=== PATIENT | female | born 1950 | race Caucasian/White ===

== ENCOUNTER 2024-12-23 12:35 | Inpatient (IN) | payer MEDICARE, SELFPAY ==
[2024-12-23] VITALS (12 sets, daily range): BP systolic 109–141; BP diastolic 44–63; PULSE 93–111; RESP 16–25; TEMP 36.7–37.3; O2SAT 95–100
--- NOTE | ~2024-12-23 | XR_ITS ---
MODIFIED ESOPHAGRAM HISTORY: Aspiration pneumonia TECHNIQUE: Modified barium esophagram was performed on 12/26/2024. I administered fluoroscopy and perf ormed the exam with speech pathologist. Patient was seated for lateral fluoroscopic imaging for michelle stion of thin liquids, pudding, solids and quantified amounts, followed by thin liquids in uncontroll ed amounts. This was recorded on tape. A single fluoroscopic spot image was also recorded. The DAP fo r this procedure was 1.828 Gycm2. The amount of fluoroscopy time used during this procedure was 1.9 m inutes. FINDINGS: Oral stage: Adequate function. Pharyngeal stage: Adequate function. There is transient flash laryngeal penetration which immediately cleared. No aspiration.. Cervical/esophageal stage: Adequate function. IMPRESSION: Patient tolerated regular consistency oral feedings in the upright position. Please sarina elate with speech pathologist findings and specific feeding recommendations. Reviewed, dictated and finalized at location A. IMPRESSION: Patient tolerated regular consistency oral feedings in the upright position. Please correlate with speech pathologist findings and specific feedi ng recommendations.
--- NOTE | ~2024-12-23 | CT_ITS ---
CTA chest PE protocol Ordering provider: Polo Burrell MD History: 74 years Female with . Shortness of breath recent hospitalization eval pe . Comparison: None. Technique: CT angiogram chest was performed following timed intravenous injection of contrast. Thin s lice axial images and reformatted coronal images were obtained. Three dimensional reformatted images of the chest were also obtained using a Ch[employer] workstation. . Automated exposure control and iterati ve reconstruction technique were employed. The dose-length product was 244.38 mGy-cm. 100 mL Omnipaqu e 350 was given IV. Findings: PULMONARY ARTERIES: No pulmonary embolus. VISUALIZED THORACIC INLET: Normal. MEDIASTINUM: Aorta/coronary arteries: Mild atheromatous disease. Heart/other: The heart is not enlarged. Lymph nodes: Paratracheal lymph nodes seen with the largest measures 1.3 cm. LUNGS: Left pleural effusion with adjacent atelectasis versus pneumonia. Right lower lobe pneumonia is noted . Follow-up advised.. No pulmonary nodules or masses. . No pneumothorax. VISUALIZED UPPER ABDOMEN: Sliding hiatus hernia. Cholelithiasis. Otherwise, the visualized upper abdo men is normal. MUSCULOSKELETAL: Soft tissues: The superficial soft tissues are normal. Bones: Age appropriate degenerative changes of the spine. IMPRESSION: 1. No pulmonary embolism. 2. Left pleural effusion with adjacent atelectasis versus pneumonia. 3. Right lower lobe pneumonia posteriorly. 4. Large sliding hiatus hernia. 5. Cholelithiasis. Reviewed, dictated and finalized at location A.
--- NOTE | ~2024-12-23 | XR_ITS ---
CHEST RADIOGRAPH CLINICAL HISTORY: Increasing oxygen demands . COMPARISON: 12/23/2024. Reference is also made to a CTA examination of the chest performed on the same day (12/23/2024) TECHNIQUE: Single portable view of the chest. FINDINGS Redemonstration of a moderate hiatal hernia. The remainder of the cardiomediastinal silhouette is otherwise unremarkable. Increased left-sided pleural effusion when compared with previous days examination. The right basilar consolidation is not visualized on the current examination. Interval development of patchy opacification of the right upper lobe, when compared with previous day s examination for which pulmonary edema is suspected. The remainder the lungs are clear. IMPRESSION: Asymmetric right upper lobe pulmonary edema with increased left-sided pleural effusion when compared with previous days examination. Reviewed, dictated and finalized at location A. IMPRESSION: Asymmetric right upper lobe pulmonary edema with increased left-sided pleural e ffusion when compared with previous days examination.
--- NOTE | ~2024-12-23 | XR_ITS ---
EXAMINATION: XR chest 1V portable DATE: 12/23/2024 13:41 INDICATION: Shortness of breath TECHNIQUE: frontal view of the chest was obtained. COMPARISON: None FINDINGS: Opacity at the medial left lower lung zone. There is blunting at the left costophrenic angle consiste nt with small left pleural effusion. Mild opacities at infrahilar region of the medial right lower javier ng zone. No pneumothorax or right-sided pleural effusion. Heart size is normal. IMPRESSION: 1. Small left pleural effusion with consolidation at the medial left lower lung zone which could repr esent atelectasis or pneumonia. 2. Mild right infrahilar opacities which could certainly represent atelectasis or pneumonia. Reviewed, dictated and finalized at location A. IMPRESSION: 1. Small left pleural effusion with consolidation at the medial left lower lung zone which could represent atelectasis or pneumonia. 2. Mild right infrahilar opacities which could certainly represent atelectasis or pneumonia.
--- NOTE | 2024-12-23 12:43 | ECG_ITS ---
Test Date: 2024-12-23 12:56:34 Measurements Intervals [place] Rate: 109 P: 72 WA: 166 QRS: -61 QRSD: 135 T: 100 QT: 349 QTc: 470 Interpretive Statements SINUS TACHYCARDIA LEFT BUNDLE BRANCH BLOCK BASELINE ARTIFACT- I, II, III, AVR, AVL, AVF, V1 ABNORMAL ECG No previous ECG available for comparison Electronically Signed On 12-23-2024 14:11:11 CDT by Pablo Flores D.O.
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
[2024-12-23 13:06] LABS: Basophils Absolute Auto 0.1 K/mm3 (0.0-0.1); Basophils Percent Auto 0.3 % (0.2-1.2); Eosinophils Percent Auto 0.1 % (0-4.4); Hematocrit 34.4 % (37.0-47.0); Hemoglobin 10.5 g/dL (12.0-15.0); Immature Granulocyte Absolute 0.21 K/mm3 (0.00-0.031); Immature Granulocyte Percent A 0.9 % (0-0.5); Lymphocytes Percent Auto 8.4 % (18.3-44.2); Mean Corpuscular HGB Conc 30.5 g/dl (32-36); Mean Corpuscular Hemoglobin 29.5 pg (26-34); Mean Corpuscular Volume 96.6 fl (80-100); Mean Platelet Volume 8.1 fl (7.4-10.4); Monocytes Absolute Auto 1.6 K/mm3 (0.1-0.6); Monocytes Percent Auto 6.9 % (2.6-8.5); Neutrophils Percent Auto 83.4 % (45.5-73.1); Platelet Count Result 379 k/mm3 (150-375); Red Blood Count 3.56 M/mm3 (4.2-5.4); Red Cell Distribution Width 15.2 % (11.5-14.5); White Blood Count 23.9 K/mm3 (4.5-10.0)
[2024-12-23 13:15] LABS: Lactic Acid Reflex 1.3 mmol/L (0.7-2.0)
[2024-12-23 13:16] LABS: INR 1.1; Prothrombin Time 14.3 Seconds (11.1-14.7)
[2024-12-23 13:16] LABS: Alveolar/Arterial O2 Gradient 72.6 mmHg; Base Excess ABG -2.4 mEq/l (+/-2.0); Fractional Inspired Oxygen 24 %; HCO3 ABG 21.5 mEq/l (22.0-26.0); Oxygen Content ABG 13.7 %vol (16.0-22.0); Oxygen Saturation ABG 90.7 % (95.0-100.0); Oxyhemoglobin 89.1 % THb (90.0-100.0); PCO2 ABG 34.3 mmHg (35.0-45.0); PO2 ABG 57.7 mmHg (80.0-100.0); Total Hemoglobin 10.9 g/dL (12.0-18.0); pH ABG 7.416 (7.350-7.450)
[2024-12-23 13:17] LABS: Partial Thromboplastin Time 29.7 Seconds (22.3-36.8)
[2024-12-23 13:18] LABS: Device NASAL CANNULA; Modified Allen's Test Pass; Site Drawn LEFT RADIAL
[2024-12-23 13:43] LABS: Influenza A QL RT-PCR Negative (Negative); Influenza B QL RT-PCR Negative (Negative); RSV RNA, RT-PCR Negative (Negative); SARS-CoV-2 RNA PCR Negative (Negative)
[2024-12-23 13:45] LABS: Procalcitonin 0.2 ng/mL
[2024-12-23 14:00] LABS: Alanine Aminotransferase 15 U/L (6-35); Albumin Level 3.3 g/dL (3.5-5.1); Alkaline Phosphatase 124 U/L (38-126); Anion Gap 10 mmol/L (4-12); Aspartate Amino Transferase 29 U/L (14-36); Bilirubin,Total 0.4 mg/dL (0.2-1.3); Blood Urea Nitrogen 14 mg/dL (7-17); Calcium 8.2 mg/dL (8.4-10.2); Carbon Dioxide 19 mmol/L (22-30); Chloride 105 mmol/L (98-107); Estimated CRCL calculation 42 ml/min; Estimated Glomerular Filt Rate > 60; Glucose 88 mg/dL (65-110); Magnesium 1.1 mg/dL (1.6-2.3); Sodium 134 mmol/L (137-145); Total Protein 8.4 g/dL (6.3-8.2)
[2024-12-23 14:03] LABS: NT Pro B Type Natriuretic Pept 1670 pg/mL (19.9-100); Troponin I 0.025 ng/mL (0.000-0.034)
--- OUTSIDE RECORDS SUMMARY | 2024-12-23 14:30 | XMS_ITS | Referral Summary ---
Author Organization [facility] Address [address] [place] [address] Phone Care Team Providers Care Asbestos Worker Name Role Phone Brent Russell MD Unavailable [phone] Evelyn Lopes DO Unavailable [phone] Evelyn Lopes DO Primary Care Provider [phone] Allergies Active Allergy Reactions Criticality Noted Date Comments Loracarbef Naproxen Anaphylaxis High Nsaids (Non-Steroidal Anti-Inflammatory Drug) Anaphylaxis,Other (See comments) High 05/22/2012 Sulfa (Sulfonamide Antibiotics) Hives High 04/03/2018 Medications atorvastatin (LIPITOR) 40 mg tablet Take 40 mg by mouth daily 1 Active carvediloL (COREG) 6.25 mg tablet Take 6.25 mg by mouth 2 (two) times a day 1 Active irbesartan (AVAPRO) 300 mg tablet Take 1 tablet by mouth daily 9 Active triamterene-hydr oCHLOROthiazide (MAXZIDE,DYAZIDE ) 75-50 mg per tablet Take 1 tablet by mouth daily 1 Active zolpidem (AMBIEN) 5 mg tablet Take 5 mg by mouth as needed 1 Active cholecalciferol (VITAMIN D-3) 5,000 unit capsule Take 5,000 Units by mouth daily Active cetirizine (ZyrTEC) 10 mg tablet Take 10 mg by mouth daily Active esomeprazole DR (NexIUM) 20 mg capsule Take 20 mg by mouth daily 2 Active multivit odagdogx-fswq-HB -calcium (THERA-M) 9 mg iron-400 mcg tablet Take 1 tablet by mouth daily Active senna-docusate (PERICOLACE) 8.6-50 mg Take 1 tablet by mouth 2 (two) times a day as needed 1 Active ondansetron (ZOFRAN) 4 mg tablet Take 4-8 mg by mouth every 8 (eight) hours as needed 1 Active naloxone (NARCAN) 4 mg/actuation spray,non-aeroso l Administer 1 spray into affected nostril(s) as needed 1 Active EPINEPHrine 0.3 mg/0.3 mL auto-injection syringe Inject 0.3 mg into the muscle as instructed as needed 1 Active acetaminophen (TYLENOL) 500 mg tablet Take 1,000 mg by mouth 3 (three) times a day as needed Active apixaban (ELIQUIS) 2.5 mg tabletIndication s:VTE Prophylaxis Take 1 tablet (2.5 mg total) by mouth 2 (two) times a day 60 tablet 2 Active gabapentin (NEURONTIN) 100 mg capsule Take 1 capsule (100 mg total) by mouth 3 (three) times a day as needed (pain control) 60 capsule 2 Active oxyCODONE (ROXICODONE) 5 mg immediate release tabletIndication s:Pain Take 1 tablet (5 mg total) by mouth every 6 (six) hours as needed for pain 15 tablet 2 Active hydrOXYzine (ATARAX) 25 mg tabletIndication s:anxiety Take 25 mg by mouth every 6 (six) hours as needed for anxiety. Indications: anxious Active Active Problems Problem Noted Date Diagnosed Date Wound infection after surgery 01/26/2022 Mixed hyperlipidemia 04/28/2021 Assessment & Plan (04/28/2021 5:26 PM CDT): Chronic stable continue atorvastatin 40 mg daily, check fasting labs Insomnia 04/28/2021 Assessment & Plan (04/28/2021 5:30 PM CDT): Chronic stable, currently taking Ambien 5 mg prescribed by former provider. Cautioned should not be taking Ambien along with her trazodone and definitely not with the tramadol due to increased respiratory depression. Patient tells me she has always taken it that way. Wakes up in the middle the night has difficulty going back to bed. Discussed weaning off Ambien and increasing it trazodone Medicare annual wellness visit, subsequent 04/28 Assessment & Plan (04/28/2021 5:25 PM CDT): Recommend maintain regular cardiovascular program as tolerated. Anemia 11/18/2014 Overview (10/13/2016): Anemia Hypertension, essential 11/18/2014 Overview (10/13/2016): Hypertension Assessment & Plan (04/28/2021 5:30 PM CDT): Chronic stable continue Avapro 300 mg, triamterene hydrochlorothiazide 75-50 daily and low-salt diet Asthma 11/18/2014 Overview (10/13/2016): Asthma Anxiety 11/18/2014 Overview (10/13/2016): Anxiety Assessment & Plan (04/28/2021 5:29 PM CDT): Worsening since returning back to his early from [place]. Recommend counselor, resources printed and handed to patient Arthritis 11/18/2014 Overview (10/13/2016): Arthritis Assessment & Plan (04/28/2021 5:29 PM CDT): Chronic stable she is taking tramadol 50 mg every 6 hours prescribed by previous provider. She was upset when the new provider whom she saw once before coming to this office decreased her tramadol from 5 tablets per day to 4 tablets per day. She is taking the medication for Right knee arthritis, right shoulder pain, hx left knee replaced. Depression 11/18/2014 Overview (10/13/2016): Depression Migraine 11/18/2014 Overview (10/13/2016): Migraines Immunizations Immunization Administration Dates Next Due Influenza, Quadrivalent, Hig h Dose, Preservative Free, Intrr 03/18/2021 Pfizer SARS-CoV-2 Monovalent Vaccination (12+ Yrs) PURPLE 10/20/2020,09/03/2020 Pneumococcal Conjugate PCV 13 11/18/2014 Pneumococcal Polysaccharide PPV23 11/06/2013 Tdap 11/18/2014 Social History Tobacco Use Types Packs/Day Years Used Date Smoking Tobacco: Never Smokeless Tobacco: Never Alcohol Use Standard Drinks/Week Comments No 0 (1 standard drink = 0.6 oz pur e alcohol) occasional AUDIT-C Answer Date Recorded Q1: How often do you have a drink containing alc ohol? 2-3 times a week 01/18/2022 Q2: How many drinks containi ng alcohol do you have on a typical day when you are drinking? 1 or 2 01/18/2022 Q3: How often do you have si x or more drinks on one occasion? 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 Gender Identity Not on file Sexual Orientation Not on file Last Filed Vital Signs Vital Sign Reading Time Taken Comments Blood Pressure 152/80 03/03/2022 2:33 PM CDT Pulse 69 03/03/2022 2:33 PM CDT Temperature 35.7 C (96.3 F) 03/03/2022 2:33 PM CDT Respiratory Rate 18 03/03/2022 2:33 PM CDT Oxygen Saturation 93% 03/03/2022 2:33 PM CDT Inhaled Oxygen Concentration - - Weight 72.6 kg (160 lb) 01/26/2022 4:02 PM CDT Height 152.4 cm (5') 01/26/2022 4:02 PM CDT Body Mass Index 31.25 01/26/2022 4:02 PM CDT Plan of Treatment Not on file Medical Devices Implanted Type Area Software Manager Device Identifier Shelf Expiration Date Model / Serial / Lot [employer] [place] R High Viscosity Cement 40gm Bone Green [id number] - [id number] Implanted:Qty: 1 on 01/18/2022 by Bernt Russell MD at [facility] Right: Knee [employer] 12/07/2023 [id number] / / [id number] [employer] Persona Cemented Posterior Stabilize Knee Right 5 Standard [id number] - [id number] Implanted:Qty: 1 on 01/18/2022 by Brent Russell MD at [facility] Right: Knee [employer] [id number] 01/04/2031 [id number] / / [id number] [employer] [id number] Persona Cemented Stem Knee Right 5d C Baseplate Tibial Tivanium - [id number] Implanted:Qty: 1 on 01/18/2022 by Brent Russell MD at [facility] Right: Knee [employer] [id number] 02/28/2031 [id number] / / [id number] [employer] [id number] Persona 13mm Posterior Stabilized Knee Right 3-5 C-D Insert - [id number] Implanted:Qty: 1 on 01/18/2022 by Brent Russell MD at [facility] Right: Knee [employer] [id number] 05/10/2029 [id number] / / [id number] Synthes 3.5mm 6mm 34mm 2.5mm Self Tap Small Hexagonal Socket Low Profile 204.834 - [id number] Implanted:Qty: 1 on 01/18/2022 by Brent Russell MD at [facility] Right: Knee Synthes I 204.834 / / Synthes 3.5mm 6mm 28mm 2.5mm Self Tap Small Hexagonal Socket Low Profile 204.828 - [id number] Implanted:Qty: 1 on 01/18/2022 by Brent Russell MD at [facility] Right: Knee Synthes I 204.828 / / Synthes Lcp Combi [id number] 4 Hole Head 4 Hole Shaft Right Angle T 241.141 - [id number] Implanted:Qty: 1 on 01/18/2022 by Brent Russell MD at [facility] Right: Knee Synthes I 241.141 / / Insurance [facility] [place] [phone] [facility] H[facility] REF Advance Directives For more information, please contact: [phone] * Full Code (Latest Code Status on File) Date Activated Date Inactivated Comments 01/26/2022 9:01 PM 01/30/2022 6:39 PM * Full Code Date Activated Date Inactivated Comments 01/18/2022 3:00 PM 01/22/2022 9:37 PM Care Teams Asbestos Worker Relationship Specialty Start Date End Date Evelyn Lopes DO [address] [place] [address] PCP - General 01/30/22 Brent Russell MD Surgeon Orthopedic Surgery 01/18/22 Evelyn Lopes DO [address] [facility] [address] [place] [address] Consulting Physician Family Medicine 01/30/22
--- OUTSIDE RECORDS SUMMARY | 2024-12-23 14:30 | XMS_ITS | Clinical Summary ---
Author Organization [facility] Address [address] [place] [address] Phone Care Team Providers Care Driller'S Assistant Name Role Phone Brent Russell MD Unavailable [phone] Evelyn Lopes DO Unavailable [phone] Evelyn Lopes DO Primary Care Provider [phone] Allergies Active Allergy Reactions Criticality Noted Date [...] mg by mouth daily 2 Active multivit lzdfclul-oemz-OV -calcium (THERA-M) 9 mg iron-400 mcg tablet [...] since returning back to his early from [place]. Recommend counselor, resources printed and handed to [...] 11/18/2014 Pneumococcal Polysaccharide PPV23 11/06/2013 Tdap 11/18/2014 Surgical History Surgery Date Site/Laterality Comments JOINT REPLACEMENT Left knee Medical History Medical History Date Comments Anxiety disorder Anxiety Depression Depression Hypertension Hypertension High cholesterol OA (osteoarthritis) Family History Medical History Relation Name Comments Alcohol abuse Father Alcoholism; Stroke Father Stroke; Colon cancer Mother Cancer, colon; Emphysema Mother Emphysema; Other Mother Brain Neuropath y; ADD / ADHD Other Family history of ADD/ADHD; Hypertension Other Family history of Hypertension; Other Other Family history of Pulmonary hypertension; Relation Name Status Comments Father Mother Other Social History Tobacco Use Types Packs/Day Years [...] on file 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 Gender Identity Not on file Sexual Orientation Not on file Obstetrics History Last Filed Vital Signs Vital Sign Reading [...] 01/26/2022 4:02 PM CDT Plan of Treatment Health Maintenance Due Date Last Done Comments Hepatitis C Screening 1950 Osteoporosis Screening-Bone Density Scan 1950 Hepatitis B Screening 02/15/1966 Zoster Vaccine (3 of 3) 01/20/2022 11/25/2021, 06/03 Depression Screening 04/28/2022 04/28/2021 Well Visit 65+ 04/28/2022 04/28/2021 Fall Risk Assessment 01/30/2023 01/30/2022, 04/28/20 21 Covid-19 Vaccine (2023-2 5 season) 2024 11/25/2021, 04/28/2021, 10/20/2020, Additional history exists DTaP/Tdap/Td Vaccine (2 - Td or Tdap) 11/18/2024 11/18/2014 Influenza Vaccine (Season Ended) 2025 03/18/2021, 03/07/2020, 04/09/2019, Additional history exists Pneumococcal vaccine 65+ Completed 020, 05/13/2018, 11/18/2014, Additional history exists Medical Devices Implanted Type Area Wine Bottle Inspector Device Identifier Shelf Expiration Date Model / Serial / Lot [employer] [place] High Viscosity Cement 40gm Bone Green [id number] - [id number] Implanted:Qty: 1 on 01/18/2022 by Brent Russell MD at [facility] Right: Knee [employer] 12/07/2023 [id number] / / [id number] [employer] Persona Cemented Posterior Stabilize Knee Right 5 Standard [id number] - [id number] Implanted:Qty: 1 on 01/18/2022 by Brent Russell MD at [facility] Right: Knee [employer] [id number] 01/04/2031 [id number] / / [id number] [employer] [id number] Persona Cemented Stem Knee Right 5d C Baseplate Tibial Tivanium - [id number] Implanted:Qty: 1 on 01/18/2022 by Brent Russell MD at [facility] Right: Knee [employer] [id number] 02/28/2031 [id number] / / [id number] [employer] [id number] Persona 13mm Posterior Stabilized Knee Right 3-5 C-D Insert - [id number] Implanted:Qty: 1 on 01/18/2022 by Brent Russell MD at [facility] Right: Knee [employer] [id number] 05/10/2029 [id number] / / [id number] Synthes 3.5mm 6mm 34mm 2.5mm Self Tap Small Hexagonal Socket Low Profile 204.834 - [id number] Implanted:Qty: 1 on 01/18/2022 by Brent Russell MD at [facility] Right: Knee Synthes I 204.834 / / Synthes 3.5mm 6mm 28mm 2.5mm Self Tap Small Hexagonal Socket Low Profile 204.828 - [id number] Implanted:Qty: 1 on 01/18/2022 by Brent Russell MD at [facility] Right: Knee Synthes I 204.828 / / Synthes Lcp Combi [id number] 4 Hole Head 4 Hole Shaft Right Angle T 241.141 - [id number] Implanted:Qty: 1 on 01/18/2022 by Brent Russell MD at [facility] Right: Knee Synthes I 241.141 / / Insurance [facility] [place] [phone] [facility] Advance Directives For more information, please contact: [phone] * Full Code (Latest Code Status on File) Date Activated Date Inactivated Comments 01/26/2022 9:01 PM 01/30/2022 6:39 PM * Full Code Date Activated Date Inactivated Comments 01/18/2022 3:00 PM 01/22/2022 9:37 PM Care Teams Driller'S Assistant Relationship Specialty Start Date End Date Evelyn Lopes DO [address] [facility] [address] [place] [address] PCP - General 01/30/22 Brent Russell MD Surgeon Orthopedic Surgery 01/18/22 Evelyn Lopes DO [address] [facility] [address] [place] [address] Consulting Physician Family Medicine 01/30/22
--- OUTSIDE RECORDS SUMMARY | 2024-12-23 14:31 | XMS_ITS | Clinical Summary ---
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 : 1950 Requested By: TRENT MOLINA Order Number: [id number] Reading : [place] Measurements Intervals [place] Rate: 88 P: 73 [place]: 169 QRS: 16 QRSD: 84 T: 14 QT: 367 QTc: 444 Interpretive Statements Sinus rhythm Abnormal T, consider ischemia, anterior leads Electronically Signed On 11-28-2024 8:46:42 CDT by [place] Procedure Note [place] MD - 11/28/2024 [facility] [address] [facility], [place] [address] Test Date: 2024-11-27 Pat Name: LYNETTE COLEPORT Department: 60 Room: [facility] Gender: Female 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 Anatomical Region Laterality Modality Chest Computed Radiogr aphy 11/27/2024 6:56 AM CDT Impressions 11/27/2024 2:59 PM CDT IMPRESSION: Mild edema. DICTATION LOCATION: 4 Narrative 11/27/2024 2:59 PM CDT EXAMINATION: XR CHEST PA OR AP 1 VW DATE: 11/27/2024 6:38 AM HISTORY: Pulmonary Edema FINDINGS: Comparison is made to a radiograph from 03/28/2025. The right-sided catheter is been removed. A left PICC and nasoenteric tube are similar to prior. There is mild edema. There is no pleural effusion or pneumothorax. Cardiomediastinal silhouette is stable. Procedure Note Sukhdeep Garcia MD - 11/27/2024 EXAMINATION: XR CHEST PA OR AP 1 VW DATE: 11/27/2024 6:38 AM HISTORY: Pulmonary Edema FINDINGS: Comparison is made to a radiograph from 03/28/2025. The right-sided catheter is been removed. A left PICC and nasoenteric tube are similar to prior. There is mild edema. There is no pleural effusion or pneumothorax. Cardiomediastinal silhouette is stable. IMPRESSION: Mild edema. DICTATION LOCATION: 4 Alban WATSON DIAGNOSTIC IMAGING ORDERABLES Fi nal Result * (ABNORMAL) UREA NITROGEN/CREATININE RATIO, URINE (11/25/2024 4:41 PM CDT) UREA NITROGEN, URINE 780 mg/dL 11/25/2024 5:17 PM CDT [facility] Comment:Reference range not established CREATININE, URINE 24.7(L) 29.0 - 226.0 mg/dL 11/25/2024 5:17 PM CDT [facility] Comment:Reference Range vari es with fluid intake and diet. UREA/CREAT RATIO, UR 31.6 Reference Range not established mg/mg Creatinine 11/25/2024 5:17 PM CDT [facility] Urine URINE SPECIMEN OBTAINED BY CLEAN CATCH PROCEDURE / Unknown Collection / Unknown 11/25/2024 4:41 PM CDT 11/25/2024 4:51 PM CDT Ileana Vu MD URINE ORDERABLES Final Re sult [facility]# [id number] 5 [facility] [address] [place] [address] * XR COMPENSATION AGENT FEES IMAGES (11/25/2024) Only the most recent of2 resultswithin the time period is included. Anatomical Region Laterality Modality Computed Radiogr aphy 11/25/2024 Yue Pepe MD DIAGNOSTIC IMAGING ORDERABL ES Final Result * (ABNORMAL) BLOOD GAS ARTERIAL (11/23/2024 6:28 AM CDT) Only the most recent of28 resultswithin the time period is included. PH ARTERIAL 7.44 7.35 - 7.45 11/23/2024 6:43 AM T [facility] PCO2 ARTERIAL 41 35 - 48 mm Hg 11/23/2024 6:43 AM T [facility] [employer] [facility] PO2 ARTERIAL 93 83 - 108 mm Hg 11/23/2024 6:43 AM T [facility] HCO3 ARTERIAL 28(H) 22 - 26 mmol/L 11/23/2024 6:43 AM T [facility] BASE EXCESS ABG 3.6(H) -2.0 - 3.0 mmol/L 11/23/2024 6:43 AM T [facility] O2 SAT EST ARTERIAL 98 94 - 98 % 11/23/2024 6:43 AM T [facility] P/F RATIO ARTERIAL 4,650 11/23/2024 6:43 AM T [facility] OXYGEN MODE Nasal Cannula 11/23/2024 6:43 AM [facility] [employer] [facility] FIO2 2.0(L) 21.0 - 100.0 % 11/23/2024 6:43 AM T [facility] [employer] [facility] Blood, arterial Arterial / Unknown 2024 6:28 AM CDT 11/23/2024 6:34 AM CDT Yue Pepe MD ABG ORDERABLES Final Resul t [facility]# [id number] 5 [facility] [address] [place] [address] * (ABNORMAL) BASIC METABOLIC PANEL (11/23/2024 6:28 AM CDT) Only the most recent of39 resultswithin the time period is included. SODIUM 134(L) 136 - 145 mmol/L 11/23/2024 7:24 AM [facility] POTASSIUM 4.0 3.5 - 5.0 mmol/L 11/23/2024 7:24 AM [facility] CHLORIDE 99 98 - 107 mmol/L 11/23/2024 7:24 AM [facility] CO2 26 22 - 29 mmol/L 11/23/2024 7:24 AM [facility] CALCIUM 7.9(L) 8.6 - 10.2 mg/dL 11/23/2024 7:24 AM [facility] BUN 49(H) 8 - 23 mg/dL 11/23/2024 7:24 AM [facility] CREATININE 0.95 0.51 - 0.95 mg/dL 11/23/2024 7:24 AM [facility] Comment:The GFR result is no t clinically significant on patients <18 or >70 years of age. GLUCOSE 110(H) 74 - 99 mg/dL 11/23/2024 7:24 AM [facility] GFR >60 mL/min/1.7 3 sq meter 11/23/2024 7:24 AM [facility] Comment:eGFR calculated with 2020 CKD-EPI equation. Vegetarian diet, extremely high or low muscle mass, and may affect results. Cystatin C with Glomerular Filtration Rate is a suitable alternative for these patients. ANION GAP 9 8 - 16 mmol/L 11/23/2024 7:24 AM [facility] Blood Venipuncture / Unknown 11/23/2024 6:28 AM CDT 11/23/2024 6:34 AM CDT Yue Pepe MD CHEMISTRY ORDERABLES Final Result [id number] [address] [place] [address] * (ABNORMAL) TEG-TRAUMA (11/20/2024 7:35 PM CDT) Only the most recent of2 resultswithin the time period is included. Pathologist [facility] CITRATED KAOLIN REACTION TIME (CK-R) 6.0 4.6 - 9.1 min 11/20/2024 8:43 PM CDT [facility] CITRATED RAPID MAXIMUM AMPLITUDE (OPERATING ROOM ORDERLY-MA) 72.0(H) 52.0 - 70.0 mm 11/20/2024 8:43 PM CDT [facility] CITRATE FUNCTIONAL FIBRINOGEN MAXIMUM AMPLITUDE (CF 44.4(H) 15.0 - 32.0 mm 11/20/2024 8:43 PM CDT [facility] LY30(LYSIS) 0.0 0.0 - 3.0 % 11/20/2024 8:43 PM CDT [facility] Blood Venipuncture / Unknown 11/20/2024 7:35 PM CDT 11/20/2024 7:35 PM CDT Narrative [facility] - 11/20/2024 8:43 PM CDT For TEG result interpretation guidance, please review results in TEG Sieve Maker. For [place], refer to [email or web address] Patient [email or web address]. For Stuart Petty or [place], refer to [email or web address]. Sheela WATSON HEMATOLOGY ORDERABLES Shanda l Result [facility]# [id number] [address] [place] [address] * HEPATITIS B SURFACE ANTIGEN (11/20/2024 3:10 PM CDT) [facility] HEPATITIS B SURFACE AG NON-REACT JEFF Non-react jeff 11/20/2024 4:11 PM CDT [facility] Comment:A non-reactive test result does not exclude the possibility of exposure to or infection with hepatitis B. Blood Venipuncture / Unknown 11/20/2024 3:10 PM CDT 11/20/2024 3:20 PM CDT Kate Aleman MD CHEMISTRY ORDERABLES Final Resu lt [facility] [employer] [facility] [id number] [address] [facility] [place] [address] * (ABNORMAL) HEPATIC FUNCTION PANEL (11/20/2024 8:47 AM CDT) TOTAL PROTEIN 7.9 6.7 - 8.6 g/dL 11/20/2024 10:09 AM T [facility] ALBUMIN 2.6(L) 3.5 - 5.2 g/dL 11/20/2024 10:09 AM [facility] BILIRUBIN TOTAL 0.2 0.0 - 1.1 mg/dL 11/20/2024 10:09 AM T [facility]. [facility] BILIRUBIN DIRECT <0.2 <0.4 mg/dL 11/21/19 10:09 AM [facility] ALKALINE PHOSPHATASE 95 35 - 104 U/L 11/20/2024 10:09 AM T [facility]. [facility] AST 20 <33 U/L 11/20/2024 10:09 AM T [facility]. [facility] ALT 19 <34 U/L 11/20/2024 10:09 AM T [facility] Blood Venipuncture / Unknown 11/20/2024 8:47 AM CDT 11/20/2024 9:12 AM CDT Narrative [facility] - 11/20/2024 10:09 AM CDT Samples containing indocyanine green cause interferences on Total and/or Direct Bilirubin and must not be measured. Alban WATSON CHEMISTRY ORDERABLES Final Resul t [facility]# [id number] [address] [place] [place] [address] * CT HEAD WO CONTRAST (11/18/2024 12:56 PM CDT) Anatomical Region Laterality Modality Head Computed Tomogra phy 11/18/2024 12:5 6 PM CDT Impressions 11/18/2024 1:02 PM CDT IMPRESSION: 1. No acute intracranial process. DICTATION LOCATION: Location 1 - [facility] Narrative 11/18/2024 1:02 PM CDT EXAMINATION: CT HEAD WO CONTRAST HISTORY: Mental status change, unknown cause. Encounter for blood typing; Núñez involv 50-59% of body surface w/less than 10% third degree núñez TECHNIQUE: CT of the head was performed without contrast according to standard protocol. The examination was performed with the adjustment of mA according to the patient size and/or the use of Iterative Reconstruction Technique. FINDINGS: No prior study is available for comparison at the time of this dictation. No acute intra- or extra-axial fluid collections are identified. There is mild cerebral volume loss with associated ex vacuo ventricular dilatation. The basilar cisterns are patent. No mass effect or midline shift is seen. The craig-white matter differentiation is normal. Periventricular white matter hypoattenuation is indicative of chronic small vessel ischemic disease. There is vascular calcification of the carotid siphons. Bilateral lens replacement. Bilateral mastoid effusions. Mild paranasal sinus disease. Partially imaged nasoenteric tube. No acute fracture is identified. Procedure Note Justin Paz MD - 11/18/2024 EXAMINATION: CT HEAD WO CONTRAST HISTORY: Mental status change, unknown cause. Encounter for blood typing; Núñez involv 50-59% of body surface w/less than 10% third degree núñez TECHNIQUE: CT of the head was performed without contrast according to standard protocol. The examination was performed with the adjustment of mA according to the patient size and/or the use of Iterative Reconstruction Technique. FINDINGS: No prior study is available for comparison at the time of this dictation. No acute intra- or extra-axial fluid collections are identified. There is mild cerebral volume loss with associated ex vacuo ventricular dilatation. The basilar cisterns are patent. No mass effect or midline shift is seen. The craig-white matter differentiation is normal. Periventricular white matter hypoattenuation is indicative of chronic small vessel ischemic disease. There is vascular calcification of the carotid siphons. Bilateral lens replacement. Bilateral mastoid effusions. Mild paranasal sinus disease. Partially imaged nasoenteric tube. No acute fracture is identified. IMPRESSION: 1. No acute intracranial process. DICTATION LOCATION: Location 1 - [facility] Alban WATSON CT ORDERABLES Final Result * TSH REFLEXIVE (11/18/2024 3:21 AM CDT) Pathologist [facility] TSH 3.32 0.27 - 4.20 uIU/mL 11/18/2024 3:25 PM CDT [facility] Blood Venipuncture / Unknown 11/18/2024 3:21 AM CDT 11/18/2024 3:35 AM CDT Dee Dee Echols PA-C CHEMISTRY ORDERABLES Final Result [facility]# [id number] [address] [facility] [place] [address] * (ABNORMAL) URINALYSIS WITH REFLEX MICROSCOPIC (11/17/2024 6:14 PM CDT) COLOR UA Yellow Pale to Dark Yellow 11/17/2024 7:01 PM CDT [facility] CLARITY UA Clear Clear 11/17/2024 7:01 PM CDT [facility] SPECIFIC GRAVITY UA 1.016 1.003 - 1.035 11/17/2024 7:01 PM T [facility] PH UA 6.0 5.0 - 8.0 11/17/2024 7:01 PM T [facility] LEUKOCYTE ESTERASE UA Trace(A) Negative 11/17/2024 7:01 PM CDT [facility] NITRITE UA Negative Negative 11/17/2024 7:01 PM T [facility] PROTEIN UA 1+(A) Negative 11/17/2024 7:01 PM [facility] GLUCOSE UA Negative Negative 11/17/2024 7:01 PM [facility] KETONES UA Negative Negative 11/17/2024 7:01 PM [facility] UROBILINOGEN UA Normal <2.0 mg/dL 7:01 PM T [facility] BILIRUBIN UA Negative Negative 11/17/2024 7:01 PM T [facility] BLOOD UA Negative Negative 11/17/2024 7:01 PM [facility] Comment:Ascorbic acid may ca use false negative results for blood. A microscopic review was reflexed to rule out this interference. WBC UA 11-25(A) 0 - 2 /hpf 11/17/2024 7:01 PM CDT [facility] RBC UA 0-2 0 - 2 /hpf 11/17/2024 7:01 PM [facility] BACTERIA UA 1+(A) Negative /hpf 11/17/2024 7:01 PM [facility] EPITHELIAL CELLS, URINE 0-5 0 - 5 /hpf 11/17/2024 7:01 PM [facility] Ascorbic Acid UA Positive(A) Negative 025 7:01 PM [facility] Urine URINE SPECIMEN OBTAINED BY CLEAN CATCH PROCEDURE / Unknown Collection / Unknown 11/17/2024 6:14 PM CDT 11/17/2024 6:31 PM CDT Elsi Nur PROCESS SAFETY MANAGEMENT ENGINEER URINE ORDERABLES Final Res ult [facility] CLIA# [id number] [address] [place] [address] * URINE CULTURE (11/17/2024 6:14 PM CDT) CULTURE Polymicrobial growth consistent with normal urethral segundo and/or colonizing bacteria 11/19/2024 6:41 AM CDT [facility] Urine URINE SPECIMEN OBTAINED BY CLEAN CATCH PROCEDURE / Unknown Collection / Unknown 11/17/2024 6:14 PM CDT 11/17/2024 6:31 PM CDT Dee Dee Echols PA-C MICROBIOLOGY - GENERAL ORD ERABLES Final Result [facility] [id number] [address] [place] [address] * (ABNORMAL) OCCULT BLOOD GUAIAC DIAGNOSTIC (11/17/2024 1:26 PM CDT) OCCULT BLOOD, STOOL Positive(A ) Negative 11/17/2024 2:14 PM CDT [facility] Stool STOOL SPECIMEN / Unknown Collection / Unknown 11/17/2024 1:26 PM CDT 11/17/2024 1:30 PM CDT Elsi Nur PROCESS SAFETY MANAGEMENT ENGINEER BODY FLUIDS AND STOOLS Fin al Result [facility]# [id number] [address] [place] [address] * (ABNORMAL) BRAIN NATRIURETIC PEPTIDE, BNP OR PROBNP (11/17/2024 12:13 PM CDT) PROBNP, N TERMINAL 22,930(H) <449 pg/mL 11/17/2024 1:06 PM CDT [facility] Comment: INTERPRETIVE COMMENT based on diagnosis: Diagnostic NT pro-BNP cutoffs for Heart Failure in the absence of renal failure is suggested for the following ranges <75 years: <125 pg/mL >=75 years: <450 pg/mL Exclusionary rule out cut-point for Acute Decompensated Heart Failure(ADHF) All ages: <300 pg/mL Diagnostic NT pro-BNP cutoffs for Acute Decompensated Heart Failure(ADHF) in the absence of renal failure is suggested for the following ages <50 years: > 450 pg/mL 50-75 years: > 900 pg/mL >75 years: >1800 pg/mL Blood Venipuncture / Unknown 11/17/2024 12:13 PM CDT 11/17/2024 12:22 PM CDT Elsi Nur PROCESS SAFETY MANAGEMENT ENGINEER CHEMISTRY ORDERABLES Final Result Performing Organization Address [facility]/ZIP Co de Phone Number [facility] CLIA# [id number] [address] [place] [address] * AMMONIA LEVEL (11/17/2024 12:07 PM CDT) Pathologist [facility] AMMONIA 40.1 11.0 - 51.0 umol/L 11/17/2024 12:48 PM CDT [facility] Blood, venous Venipuncture / Unknown 11/17/2024 12:07 PM CDT 11/17/2024 12:22 PM CDT Elsi Nur PROCESS SAFETY MANAGEMENT ENGINEER CHEMISTRY ORDERABLES Final Result Performing Organization Address [facility] Co de Phone Number [facility]# [id number] [facility] [place] [address] * (ABNORMAL) BASIC METABOLIC PANEL PLUS (ADD ON CMP TO BMP) (11/16/2024 5:09 AM CDT) TOTAL PROTEIN 7.1 6.7 - 8.6 g/dL 11/16/2024 10:33 AM CDT [facility] ALBUMIN 2.3(L) 3.5 - 5.2 g/dL 11/16/2024 10:33 AM CDT [facility] BILIRUBIN TOTAL <0.2 0.0 - 1.1 mg/dL 11/16/2024 10:33 AM CDT [facility] ALKALINE PHOSPHATASE 84 35 - 104 U/L 11/16/2024 10:33 AM CDT [facility] AST 23 <33 U/L 11/16/2024 10:33 AM CDT [facility] ALT 19 <34 U/L 11/16/2024 10:33 AM CDT [facility] Blood Capillary / Unknown 11/16/2024 5:09 AM CDT 11/16/2024 5:13 AM CDT Narrative [facility] - 11/16/2024 10:33 AM CDT Samples containing indocyanine green cause interferences on Total and/or Direct Bilirubin and must not be measured. Yue Pepe MD CHEMISTRY ORDERABLES Final Result Performing Organization Address [facility] Center/ZIP Co de Phone Number [facility] CLIA# [id number] [address] [facility] [place] [address] * PHOSPHORUS (11/15/2024 5:42 AM CDT) Only the most recent of25 resultswithin the time period is included. PHOSPHORUS 2.6 2.5 - 4.5 mg/dL 11/15/2024 6:40 AM CDT [facility] Blood Capillary / Unknown 11/15/2024 5:42 AM CDT 11/15/2024 5:48 AM CDT Yeu Pepe MD CHEMISTRY ORDERABLES Final Result Performing Organization Address City/[facility]/ZIP Co de Phone Number [facility] CLIA# [id number] [address] [facility] [place] [address] * MAGNESIUM LEVEL (11/15/2024 5:42 AM CDT) Only the most recent of24 resultswithin the time period is included. MAGNESIUM 2.1 1.6 - 2.4 mg/dL 11/15/2024 6:40 AM CDT [facility] Blood Capillary / Unknown 11/15/2024 5:42 AM CDT 11/15/2024 5:48 AM CDT Yue Pepe MD CHEMISTRY ORDERABLES Final Result Performing Organization Address City/[facility]/ZIP Co de Phone Number [facility] CLIA# [id number] [address] [place] [id number] * (ABNORMAL) CALCIUM IONIZED (11/15/2024 5:42 AM CDT) Only the most recent of20 resultswithin the time period is included. PH, VENOUS 7.30(L) 7.32 - 7.43 11/15/2024 5:59 AM CDT [facility] CALCIUM IONIZED 4.8 4.8 - 5.2 mg/dL 11/15/2024 5:59 AM CDT [facility] Blood Capillary / Unknown 11/15/2024 5:42 AM CDT 11/15/2024 5:48 AM CDT Yue Pepe MD CHEMISTRY ORDERABLES Final Result Performing Organization Address City/[facility] Co de Phone Number [facility] CLIA# [id number] [address] [place] [address] * (ABNORMAL) RESPIRATORY CULTURE WITH GRAM STAIN (11/11/2024 10:59 AM CDT) Pathologist [facility] CULTURE PSEUDOMONAS AERUGINOSA(A) TEA MCG/ML 11/13/2024 7:48 AM CDT [facility] Comment:Susceptibility on pr evious culture. CULTURE Absent Normal Segundo TEA MCG/ML 11/13/2024 7:48 AM CDT [facility] GRAM STAIN Non diagnostic pattern 11/13/2024 7:48 AM CDT [facility] GRAM STAIN 4+ (Heavy) Polymorphonuclear WBC 11/13/2024 7:48 AM CDT [facility] Washings (Other, specify) Collection / Unknown 11/11/2024 10:59 AM CDT 11/11/2024 11:21 AM CDT Sera Hair DNP MICROBIOLOGY - GENERAL OR DERABLES Final Result [facility] CLIA# [id number] [address] [place] [address] * (ABNORMAL) HEMOGLOBIN AND HEMATOCRIT (11/10/2024 10:51 PM CDT) HEMOGLOBIN 7.1(L) 11.8 - 14.8 g/dL 11/10/2024 11:03 PM CDT [facility] HEMATOCRIT 22.8(L) 35.5 - 44.0 % 11/10/2024 11:03 PM CDT [facility] Blood Venipuncture / Unknown 11/10/2024 10:51 PM CDT 11/10/2024 10:56 PM CDT Result [facility] Reina Xavier PROCESS SAFETY MANAGEMENT ENGINEER HEMATOLOGY ORDERABLES Final Result Performing Organization Address [facility]/ZIP Co de Phone Number [facility] [id number] [address] [place] [address] * (ABNORMAL) SPUTUM CULTURE WITH GRAM STAIN (11/10/2024 12:35 PM CDT) Only the most recent of2 resultswithin the time period is included. CULTURE HAEMOPHILUS INFLUENZAE(A) TEA MCG/ML 11/12/2024 9:26 AM CDT [facility] Comment:This Haemophilus inf luenzae is beta-lactamase positive, indicating probable resistance to penicillin or ampicillin. For serious infections use ceftriaxone. BETA LACTAMASE Positive 11/12/2024 9:26 AM T [facility] CULTURE PSEUDOMONAS AERUGINOSA(A) TEA MCG/ML 11/12/2024 9:26 AM CDT [facility] CULTURE Absent Normal Segundo TEA MCG/ML 11/12/2024 9:26 AM T [facility] GRAM STAIN Non diagnostic pattern 11/12/2024 9:26 AM [facility] GRAM STAIN 4+ (Heavy) Polymorphonuclear WBC 11/12/2024 9:26 AM [facility] [employer] [facility] Sputum SPUTUM SPECIMEN OBTAINED BY ASPIRATION / Unknown Collection / Unknown 11/10/2024 12:35 PM CDT 11/10/2024 12:43 PM CDT Narrative Organism Antibiotic Method Susceptibility Pseudomonas aeruginosa CEFTAZIDIME TEA MCG/ML 4 mcg/mL: Susceptible Pseudomonas aeruginosa GENTAMICIN TEA MCG/ML Resistant Pseudomonas aeruginosa TOBRAMYCIN TEA MCG/ML <=1 mcg/mL: Susceptible Pseudomonas aeruginosa CIPROFLOXACIN TEA MCG/ML <=0.25 mcg/mL: Susceptible Pseudomonas aeruginosa PIPERACILLIN/ TAZOBACTAM TEA MC G/ML 8 mcg/mL: Susceptible Comment:Aminoglycosides shou ld not be used as monotherapy for infections outside the urinary tract. Consultation with an infectious diseases specialist is recommended. Sheela WATSON MICROBIOLOGY - GENERAL ORD ERABLES Final Result [facility]# [id number] [address] [place] [address] [place] [address] * POC LACTIC ACID (11/10/2024 9:40 AM CDT) Only the most recent of6 resultswithin the time period is included. LACTIC ACID POC 1.0 <=2.0 mmol/L 11/10/2024 9:40 AM T [facility] [employer] [facility] SPECIMEN SOURCE, GASES POC Arterial 11/10/2024 9:40 AM [facility] [employer] [facility] COMMENT, GASES POC Responsible Clinical Caregiver notified 11/10/2024 9:40 AM [facility] [employer] [facility] Blood 11/10/2024 9:40 AM CDT 11/10/2024 9:41 AM CDT Yue Pepe MD POINT OF CARE TESTING Final Result [facility] [employer] [facility]# [id number] [address] [place] [address] * (ABNORMAL) BLOOD GAS,(INCL. H+H, LYTES, GLUC) (11/10/2024 9:40 AM CDT) Only the most recent of6 resultswithin the time period is included. PH BLOOD POC 7.41 7.35 - 7.45 11/10/2024 9:40 AM [facility] [employer] [facility] PCO2 POC 44 35 - 48 mm Hg 11/10/2024 9:40 AM [facility] PO2 POC 210(H) 83 - 108 mm Hg 11/10/2024 9:40 AM [facility] TCO2 (CALC) POC 29(H) 19 - 24 mmol/L 11/10/2024 9:40 AM [facility] HCO3 (CALC) POC 28(H) 22 - 26 mmol/L 11/10/2024 9:40 AM [facility] O2 SATURATION POC 99(H) 94 - 98 % 11/10/2024 9:40 AM [facility] BASE EXCESS POC 3 -2 - 3 mmol/L 11/10/2024 9:40 AM [facility] [employer] [facility] HEMOGLOBIN POC 7.2(L) 11.8 - 14.8 g/dL 11/10/2024 9:40 AM [facility] HEMATOCRIT POC 22(L) 36 - 44 % 11/10/2024 9:40 AM [facility] Comment:Estimated Value GLUCOSE POC 92 74 - 99 mg/dL 11/10/2024 9:40 AM [facility] - [facility] SODIUM POC 140 136 - 145 mmol/L 11/10/2024 9:40 AM [facility] - . [facility] POTASSIUM POC 3.4(L) 3.5 - 5.0 mmol/L 11/10/2024 9:40 AM [facility] - . [facility] CHLORIDE POC 109(H) 98 - 107 mmol/L 11/10/2024 9:40 AM [facility] - . [facility] CALCIUM IONIZED POC 4.4(L) 4.7 - 5.1 mg/dL 11/10/2024 9:40 AM [facility] - . [facility] PH TEMP CORRECT 7.41 7.35 - 7.45 11/10/2024 9:40 AM T [facility] - . [facility] PCO2 TEMP CORRECT 44 35 - 48 mm Hg 11/10/2024 9:40 AM [facility] - [facility] PO2 TEMP CORRECT 210(H) 83 - 108 mm Hg 11/10/2024 9:40 AM [facility] - [facility] SPECIMEN SOURCE, GASES POC Arterial 11/10/2024 9:40 AM [facility] - [facility] PATIENT'S TEMPERATURE POC 37.0 degrees 11/10/2024 9:40 AM [facility] - [facility] COMMENT, GASES POC Responsible Clinical Caregiver notified 11/10/2024 9:40 AM [facility] Blood, arterial 11/10/2024 9 :40 AM CDT 11/10/2024 9:41 AM CDT us Yeu Pepe MD ABG ORDERABLES Final Resul t [facility]# [id number] [address] [place] [address] * [place] ANES INSERT ENDOTRACHEAL AIRWAY (11/10/2024 7:41 AM CDT) Narrative Lucas Kowalski AA-C - 11/10/2024 7:41 AM CDT Lucas Kowalski AA-C 11/10/2024 8:50 AM Airway Date/Time: 11/10/2024 7:41 AM Location: OR Plan: elective intubation Patient Identity Confirmed by: Verbally with patient and armband Airway: not difficult Staffing Performed: Student NA/AA Authorized by: Oleg Garsia MD Performed by: Lucas Kowalski AA-C Renal Social Worker: Lucas Kowalski AA-C Indications and Patient Condition: Indications for Airway Management: Anesthesia Sedation Level: general anesthesia Preoxygenated: yes Patient Position: Sniffing Mask Difficulty Assessment: 2 - vent by mask + OA or adjuvant +/- NMBA Oral Airway: 90mm Planned Trial Extubation: No Final Airway Details: Final Airway Type: Endotracheal airway ETT Cuffed: Yes Cuff Volume (mL): 7 Technique Used for Successful ETT Placement: Video laryngoscopy Devices/Methods Used in Placement: Intubating stylet Blade Size: 3 Insertion Site: Oral ETT Size (mm): 7.0 Video Laryngoscopy Devices: GlideScope Measured from: Teeth ETT to Teeth (cm): 21 Tube secured with: Tape Placement Verified by: auscultation, bronchoscopy, end tidal CO2 and chest rise Cormack-Lehane Classification: Grade I - full view of glottis Number of Attempts at Approach: 1 Additional Procedure Information: atraumatic and dentition unchanged Additional Comments: Intubation performed by Hector SIMPSON. Oleg Garsia MD PROCEDURE/MINOR SURGICAL ERICH JOE Final Result * (ABNORMAL) COMPREHENSIVE METABOLIC PANEL (11/08/2024 11:03 AM CDT) Only the most recent of2 resultswithin the time period is included. SODIUM 148(H) 136 - 145 mmol/L 11/08/2024 12:04 PM T [facility] POTASSIUM 3.7 3.5 - 5.0 mmol/L 11/08/2024 12:04 PM T [facility] CHLORIDE 110(H) 98 - 107 mmol/L 11/08/2024 12:04 PM T [facility] CO2 27 22 - 29 mmol/L 11/08/2024 12:04 PM [facility] CALCIUM 8.1(L) 8.6 - 10.2 mg/dL 11/08/2024 12:04 PM [facility] BUN 64(H) 8 - 23 mg/dL 11/08/2024 12:04 PM [facility] CREATININE 1.34(H) 0.51 - 0.95 mg/dL 11/08/2024 12:04 PM [facility] Comment:The GFR result is no t clinically significant on patients <18 or >70 years of age. GLUCOSE 126(H) 74 - 99 mg/dL 11/08/2024 12:04 PM [facility] TOTAL PROTEIN 7.0 6.7 - 8.6 g/dL 11/08/2024 12:04 PM [facility] ALBUMIN 2.2(L) 3.5 - 5.2 g/dL 11/08/2024 12:04 PM [facility] BILIRUBIN TOTAL 0.2 0.0 - 1.1 mg/dL 11/08/2024 12:04 PM [facility] ALKALINE PHOSPHATASE 112(H) 35 - 104 U/L 11/08/2024 12:04 PM [facility] AST 29 <33 U/L 11/08/2024 12:04 PM [facility] ALT 19 <34 U/L 11/08/2024 12:04 PM [facility] GFR 41 mL/min/1.7 3 sq meter 11/08/2024 12:04 PM [facility] Comment:eGFR calculated with 2020 CKD-EPI equation. Vegetarian diet, extremely high or low muscle mass, and may affect results. Cystatin C with Glomerular Filtration Rate is a suitable alternative for these patients. ANION GAP 11 8 - 16 mmol/L 11/08/2024 12:04 PM [facility] Blood Venipuncture / Unknown 11/08/2024 11:03 AM CDT 11/08/2024 11:07 AM CDT Narrative [facility] [employer] [facility] - 11/08/2024 12:04 PM CDT Samples containing indocyanine green cause interferences on Total and/or Direct Bilirubin and must not be measured. Chi Valentine MD CHEMISTRY ORDERABLES Final Re sult [facility] [employer] [facility] CLIA# [id number] [address] [facility] [address] [place] [address] * XR ABDOMEN FOR FEEDING TUBE 1 VW (11/01/2024 11:25 AM CDT) Only the most recent of14 resultswithin the time period is included. Anatomical Region Laterality Modality Abdomen Computed Radiogr aphy 11/01/2024 11:2 5 AM CDT Impressions 11/01/2024 11:30 AM CDT IMPRESSION: An enteric tube courses through the stomach terminating at the pylorus. DICTATION LOCATION: Location [address] [place] [address] Narrative 11/01/2024 11:30 AM CDT EXAMINATION: XR ABDOMEN FOR FEEDING TUBE 1 VW DATE: 11/01/2024 11:25 AM HISTORY: Enteric tube placement COMPARISON: Comparison made with the prior exam from 10/31/2024. INCIDENTAL FINDINGS: None. Procedure Note Stephan Gandara DO - 11/01/2024 EXAMINATION: XR ABDOMEN FOR FEEDING TUBE 1 VW DATE: 11/01/2024 11:25 AM HISTORY: Enteric tube placement COMPARISON: Comparison made with the prior exam from 10/31/2024. INCIDENTAL FINDINGS: None. IMPRESSION: An enteric tube courses through the stomach terminating at the pylorus. DICTATION LOCATION: Location [address] [place] [address] Petr Treviño MD DIAGNOSTIC IMAGING ORDERABLE S Final Result * UPPER ENDOSCOPY REPORT (10/31/2024 2:39 PM CDT) Narrative Procedure Note Elfego Bay MD - 10/31/2024 2:39 PM CDT [facility] Endoscopy Patient Name: Lynette Lyle Procedure Date: 10/31/2024 Date of : 1950 Attending MD: Elfego Bay , , Procedure: Upper GI endoscopy Indications: Placement of feeding tube Providers: Elfego Bay Referring MD: Medicines: See the Anesthesia note for documentation of the administered medications Complications: No immediate complications. Procedure: Informed consent was obtained for the procedure, including moderate sedation after risks were discussed. Based on the pre-procedure assessment, including review of the patient's medical history, medications, allergies, and review of systems, the patient was deemed to be an appropriate candidate for sedation. A timeout was performed. Continuous ECG monitoring, pulse oximetry, blood pressure monitoring, and direct observation were performed. The was introduced through the mouth, and advanced to the third part of duodenum. The upper GI endoscopy was accomplished without difficulty. Findings: The examined esophagus was normal. A small hiatal hernia was present. Diffuse erythematous mucosa was found in the gastric antrum. The exam of the stomach was otherwise normal. The examined duodenum was normal. A nasoenteric tube was advanced into the esophagus, grasped by forceps throiugh the scope, advanced into the duodenum and secured wtih a clip. Impression: - Normal esophagus. - Small hiatal hernia. - Erythematous mucosa in the antrum. - Normal examined duodenum. - No specimens collected. Recommendation: Tube may be used when position is confirmed by XRay. Elfego Bay, 10/31/2024 2:39:15 PM Number of Addenda: [phone] ; [place] [address] Elfego Bay MD GI PROCEDURE ORDERABLES Final Re sult * (ABNORMAL) BLOOD GAS VENOUS (10/28/2024 7:11 PM CDT) PH, VENOUS 7.31(L) 7.32 - 7.43 10/28/2024 7:49 PM CDT [facility] - [facility] PCO2 VENOUS 49 38 - 50 mm Hg 10/28/2024 7:49 PM CDT [facility] - [facility] PO2 VENOUS 37 25 - 40 mm Hg 10/28/2024 7:49 PM CDT [facility] - . [place] [facility]3 VENOUS 24 22 - 29 mmol/L 7:49 PM CDT [facility] BASE EXCESS VENOUS -1.6 Reference Range Not Established mmol/L 10/28/2024 7:49 PM CDT [facility] HEMOGLOBIN VENOUS 9.4 No Ref Range Estab g/dL 10/28/2024 7:49 PM CDT [facility] O2 SAT EST VENOUS 68 40 - 70 % 10/28/2024 7:49 PM CDT [facility] OXYGEN MODE Venturi Mask 10/28/2024 7:49 PM T [facility] FIO2 40.0 21.0 - 100.0 % 10/28/2024 7:49 PM CDT [facility] Blood, venous Venipuncture / Unknown 10/28/2024 7:11 PM CDT 10/28/2024 7:45 PM CDT Alban WATSON ABG ORDERABLES Final Result [facility] [id number] [address] [place] [address] * IR VENOUS ACCESS (10/28/2024 2:41 PM CDT) Narrative 10/28/2024 2:41 PM CDT Order information only. Exam was auto-finalized. Alban WATSON IR ORDERABLES Final Result * ECHO COMPLETE - CONTRAST AND STRAIN IF INDICATED (10/28/2024 11:13 AM CDT) EJECTION FRACTION 60 INTERFACE SYSTEM 10/28/2024 10:4 5 AM CDT Narrative INTERFACE SYSTEM - 10/28/2024 11:16 AM CDT [facility] [address] [place] [address] [email or web address] Transthoracic Echocardiogram Patient: Lynette Lyle Study ID: ECHO COMPLETE - Gender: F : 1950 Age: 74 Race: TOVA Height 160cm Study Date: 10/28/2024 Weight: 77.3kg Access. #: [id number] BP: *Referring Physician:* Chi Valentine *Ordering Physician:Chi Rosales gas pumping station operator: Nurse: STUDY CONCLUSIONS: SUMMARY: - Left ventricle: The cavity size was normal. Wall thickness was normal. Global systolic function is normal. The estimated ejection fraction is 60-65%. For Epic reporting: the left ventricular ejection fraction is 60% . - Aortic valve: Mild vs high flow state (mean 12). - Left atrium: The atrium is mildly to moderately dilated. - Right ventricle: The cavity size is normal. Systolic function is normal. - Tricuspid valve: Mild regurgitation. - Technically limited study. Cardiac Anatomy: LEFT VENTRICLE: The cavity size was normal. Wall thickness was normal. Global systolic function is normal. The estimated ejection fraction is 60-65%. For Epic reporting: the left ventricular ejection fraction is 60% . AORTIC VALVE: . The leaflets are mildly calcified. Mild vs high flow state (mean 12). No significant regurgitation. The mean systolic gradient is 12mm Hg. The peak systolic gradient is 20mm Hg. The LVOT to aortic valve VTI ratio is 0.6. The valve area is 1.9cm^2. The ratio of LVOT to aortic valve peak velocity is 0.62. AORTA: Aortic root: The root is normal-sized. MITRAL VALVE: Structurally normal valve. No significant regurgitation. The peak diastolic gradient is 6mm Hg. LEFT ATRIUM: The atrium is mildly to moderately dilated. RIGHT VENTRICLE: The cavity size is normal. Systolic function is normal. PULMONIC VALVE: Structurally normal valve. No significant regurgitation. TRICUSPID VALVE: Structurally normal valve. Mild regurgitation. RIGHT ATRIUM: The atrium was normal in size. SYSTEMIC VEINS: Inferior vena cava: The IVC is not seen. PERICARDIUM: There is no pericardial effusion. Measurements Left ventricle Value Ref IVS, ED, LAX (H) 1.0 cm 0.6 - 0.9 VIKI, LAX (L) 2.9 cm 3.8 - 5.2 VIKI/bsa, LAX (L) 1.6 cm/m^2 2.3 - 3.1 VIKI, LAX chord (N) 4.4 cm 3.8 - 5.2 ESD, LAX chord (N) 2.9 cm 2.2 - 3.5 VIKI/bsa, LAX chord (N) 2.4 cm/m^2 2.3 - 3.1 ESD/bsa, LAX chord (N) 1.6 cm/m^2 1.3 - 2.1 FS, LAX chord (N) 34 % 27 - 45 IVS, ED (H) 1.0 cm 0.6 - 0.9 PW, ED (H) 1.0 cm 0.6 - 0.9 EDV, 2-p (H) 115 ml 46 - 106 ESV, 2-p (H) 46 ml 14 - 42 EF, 2-p (N) 60 % 54 - 74 SV, 2-p 69 ml --------- SV/bsa, 2-p 38.3 ml/m^2 --------- E', lat bethanie, TDI (N) 17.1 cm/sec >=10.0 E/e', lat bethanie, TDI (N) 7 <=13 E', med bethanie, TDI (N) 10.4 cm/sec >=7.0 E/e', med bethanie, TDI 12 --------- E', avg, TDI 13.8 cm/sec --------- E/e', avg, TDI (N) 9 <=14 LVOT Value Ref Diam, S 2.0 cm --------- Area 3.1 cm^2 --------- Peak jose, S 1.39 m/sec --------- VTI, S 22.6 cm --------- Peak grad, S 8 mm Hg --------- Right ventricle Value Ref S' lateral (N) 10.1 cm/sec >=9.5 Left atrium Value Ref AP dim, ES (H) 4.5 cm 2.7 - 3.8 AP dim index, ES (H) 2.5 cm/m^2 1.5 - 2.3 SI dim, A4C 5.4 cm --------- Area ES, A4C (H) 22 cm^2 <=20 Area/bsa ES, A4C 12.38 cm^2/m^2 --------- SI dim, A2C 5.6 cm --------- SI dim, shorter 5.4 cm --------- Vol, ES, 1-p A2C (H) 62 ml 22 - 52 Vol/bsa, ES, 1-p A2C (N) 34 ml/m^2 13 - 40 Vol, ES, 2-p 68 ml --------- Vol/bsa, ES, 2-p (H) 38 ml/m^2 16 - 34 LA/Ao root ratio 1.45 --------- Right atrium Value Ref SI dim, ES, A4C (N) 5.3 cm 3.4 - 5.3 SI dim/bsa, ES, A4C (N) 2.9 cm/m^2 1.9 - 3.1 Area, ES, A4C (N) 17 cm^2 10 - 18 Vol, ES, 1-p A4C 46 ml --------- Vol/bsa, ES, 1-p A4C (N) 25 ml/m^2 9 - 33 Aortic valve Value Ref Peak v, S 2.3 m/sec --------- Mean v, S 1.65 m/sec --------- VTI, S 37.4 cm --------- Mean grad, S 12 mm Hg --------- Peak grad, S 20 mm Hg --------- LVOT/AV, VTI ratio 0.6 --------- CARLOS, VTI 1.9 cm^2 --------- CARLOS/bsa, VTI 1.05 cm^2/m^2 --------- LVOT/AV, Vpeak ratio 0.62 --------- CARLOS, Vmax 1.9 cm^2 --------- CARLOS/bsa, Vmax 1.07 cm^2/m^2 --------- Mitral valve Value Ref Peak E 1.25 m/sec --------- Peak A 1.54 m/sec --------- Decel time 143 ms --------- Peak grad, D 6 mm Hg --------- Peak E/A ratio 0.8 --------- Pulmonic valve Value Ref Peak v, S 1.46 m/sec --------- Peak grad, S 9 mm Hg --------- Tricuspid valve Value Ref TR peak v (N) 2 m/sec <=2.8 Peak RV-RA grad, S 20 mm Hg --------- Aortic root Value Ref Root diam, 3.1 cm --------- Ascending aorta Value Ref AAo AP diam, S 3.1 cm --------- AAo AP diam/bsa, S 1.7 cm/m^2 --------- Legend: (L) and (H) misti values outside specified reference range. (N) hurt values inside specified reference range. Procedure data: Procedure information: A transthoracic echocardiogram was performed. Scanning was performed from the parasternal, apical, and subcostal acoustic windows. Transthoracic echocardiogram. Complete 2D, complete spectral Doppler, and color Doppler. Birthdate: Patient birthdate: 1950. Age: Patient is 74year(s) old. Sex: gender: female. Height: 160cm. 63in. Weight: 77.3kg. 170.4lb. Body mass index: 30.2kg/m^2. Body surface area: 1.81m^2. Study date: Study date: 10/28/2024. Study time: 10:45 AM. Prepared and Electronically Authenticated Lonny Mckinley [id number] Procedure Note Lonny Mckinley MD - 10/28/[address] [address] [email or web address] Transthoracic Echocardiogram Patient: Lynette Lyle Study ID: ECHO COMPLETE - Gender: Johnny : 1950 Age: 74 Race: TOVA Height 160cm Study Date: 10/28/2024 Weight: 77.3kg Access. #: [id number] BP: *Referring Physician:* Chi Valentine *Ordering Physician:* Chi Valentine gas pumping station operator: Nurse: STUDY CONCLUSIONS: SUMMARY: - Left ventricle: The cavity size was normal. Wall thickness was normal. Global systolic function is normal. The estimated ejection fraction is 60-65%. For Epic reporting: the left ventricular ejection fraction is60% . - Aortic valve: Mild vs high flow state (mean 12). - Left atrium: The atrium is mildly to moderately dilated. - Right ventricle: The cavity size is normal. Systolic function isnormal. - Tricuspid valve: Mild regurgitation. - Technically limited study. Cardiac Anatomy: LEFT VENTRICLE: The cavity size was normal. Wall thickness was normal.Global systolic function is normal. The estimated ejection fraction is 60-65%.For Epic reporting: the left ventricular ejection fraction is 60% . AORTIC VALVE: . The leaflets are mildly calcified. Mild vs high flowstate (mean 12). No significant regurgitation. The mean systolic gradient is12mm Hg. The peak systolic gradient is 20mm Hg. The LVOT to aortic valve VTIratio is 0.6. The valve area is 1.9cm^2. The ratio of LVOT to aortic valvepeak velocity is 0.62. AORTA: Aortic root: The root is normal-sized. MITRAL VALVE: Structurally normal valve. No significantregurgitation. The peak diastolic gradient is 6mm Hg. LEFT ATRIUM: The atrium is mildly to moderately dilated. RIGHT VENTRICLE: The cavity size is normal. Systolic function isnormal. PULMONIC VALVE: Structurally normal valve. No significantregurgitation. TRICUSPID VALVE: Structurally normal valve. Mild regurgitation. RIGHT ATRIUM: The atrium was normal in size. SYSTEMIC VEINS: Inferior vena cava: The IVC is not seen. PERICARDIUM: There is no pericardial effusion. Measurements Left ventricle Value Ref IVS, ED, LAX (H) 1.0 cm 0.6 - 0.9 VIKI, LAX (L) 2.9 cm 3.8 - 5.2 VIKI/bsa, LAX (L) 1.6 cm/m^2 2.3 - 3.1 VIKI, LAX chord (N) 4.4 cm 3.8 - 5.2 ESD, LAX chord (N) 2.9 cm 2.2 - 3.5 VIKI/bsa, LAX chord (N) 2.4 cm/m^2 2.3 - 3.1 ESD/bsa, LAX chord (N) 1.6 cm/m^2 1.3 - 2.1 FS, LAX chord (N) 34 % 27 - 45 IVS, ED (H) 1.0 cm 0.6 - 0.9 PW, ED (H) 1.0 cm 0.6 - 0.9 EDV, 2-p (H) 115 ml 46 - 106 ESV, 2-p (H) 46 ml 14 - 42 EF, 2-p (N) 60 % 54 - 74 SV, 2-p 69 ml --------- SV/bsa, 2-p 38.3 ml/m^2 --------- E', lat bethanie, TDI (N) 17.1 cm/sec >=10.0 E/e', lat bethanie, TDI (N) 7 <=13 E', med bethanie, TDI (N) 10.4 cm/sec >=7.0 E/e', med bethanie, TDI 12 --------- E', avg, TDI 13.8 cm/sec --------- E/e', avg, TDI (N) 9 <=14 LVOT Value Ref Diam, S 2.0 cm --------- Area 3.1 cm^2 --------- Peak jose, S 1.39 m/sec --------- VTI, S 22.6 cm --------- Peak grad, S 8 mm Hg --------- Right ventricle Value Ref S' lateral (N) 10.1 cm/sec >=9.5 Left atrium Value Ref AP dim, ES (H) 4.5 cm 2.7 - 3.8 AP dim index, ES (H) 2.5 cm/m^2 1.5 - 2.3 SI dim, A4C 5.4 cm --------- Area ES, A4C (H) 22 cm^2 <=20 Area/bsa ES, A4C 12.38 cm^2/m^2 --------- SI dim, A2C 5.6 cm --------- SI dim, shorter 5.4 cm --------- Vol, ES, 1-p A2C (H) 62 ml 22 - 52 Vol/bsa, ES, 1-p A2C (N) 34 ml/m^2 13 - 40 Vol, ES, 2-p 68 ml --------- Vol/bsa, ES, 2-p (H) 38 ml/m^2 16 - 34 LA/Ao root ratio 1.45 --------- Right atrium Value Ref SI dim, ES, A4C (N) 5.3 cm 3.4 - 5.3 SI dim/bsa, ES, A4C (N) 2.9 cm/m^2 1.9 - 3.1 Area, ES, A4C (N) 17 cm^2 10 - 18 Vol, ES, 1-p A4C 46 ml --------- Vol/bsa, ES, 1-p A4C (N) 25 ml/m^2 9 - 33 Aortic valve Value Ref Peak v, S 2.3 m/sec --------- Mean v, S 1.65 m/sec --------- VTI, S 37.4 cm --------- Mean grad, S 12 mm Hg --------- Peak grad, S 20 mm Hg --------- LVOT/AV, VTI ratio 0.6 --------- CARLOS, VTI 1.9 cm^2 --------- CARLOS/bsa, VTI 1.05 cm^2/m^2 --------- LVOT/AV, Vpeak ratio 0.62 --------- CARLOS, Vmax 1.9 cm^2 --------- CARLOS/bsa, Vmax 1.07 cm^2/m^2 --------- Mitral valve Value Ref Peak E 1.25 m/sec --------- Peak A 1.54 m/sec --------- Decel time 143 ms --------- Peak grad, D 6 mm Hg --------- Peak E/A ratio 0.8 --------- Pulmonic valve Value Ref Peak v, S 1.46 m/sec --------- Peak grad, S 9 mm Hg --------- Tricuspid valve Value Ref TR peak v (N) 2 m/sec <=2.8 Peak RV-RA grad, S 20 mm Hg --------- Aortic root Value Ref Root diam, 3.1 cm --------- Ascending aorta Value Ref AAo AP diam, S 3.1 cm --------- AAo AP diam/bsa, S 1.7 cm/m^2 --------- Legend: (L) and (H) misti values outside specified reference range. (N) hurt values inside specified reference range. Procedure data: Procedure information: A transthoracic echocardiogram was performed.Scanning was performed from the parasternal, apical, and subcostal acousticwindows. Transthoracic echocardiogram. Complete 2D, complete spectralDoppler, and color Doppler. Birthdate: Patient birthdate: 1950. Age:Patient is 74year(s) old. Sex: gender: female. Height: 160cm. 63in.Weight: 77.3kg. 170.4lb. Body mass index: 30.2kg/m^2. Body surface area: 1.81m^2. Study date: Study date: 10/28/2024. Study time: 10:45 AM. Prepared and Electronically Authenticated Lonny Mckinley [id number] us Chi Valentine MD US ORDERABLES Final Result INTERFACE SYSTEM Refer to clinic/hospital department * EXTRA TUBE (GREEN) (10/26/2024 8:10 PM CDT) Blood Venipuncture / Unknown 10/26/2024 8:10 PM CDT 10/26/2024 8:18 PM CDT us Trent Vizcaino MD CHEMISTRY ORDERAB LES Final Result [facility]# [id number] [address] [place] [address] * EXTRA TUBE (LAV) (10/26/2024 8:10 PM CDT) Blood Venipuncture / Unknown 10/26/2024 8:10 PM CDT 10/26/2024 8:18 PM CDT Trent Vizcaino MD HEMATOLOGY ORDERA BLES Final Result [facility] CLMD# [id number] [address] [place] [address] * EXTRA TUBE (RED) (10/26/2024 8:10 PM CDT) Blood Venipuncture / Unknown 10/26/2024 8:10 PM CDT 10/26/2024 8:18 PM CDT Trent Vizcaino MD CHEMISTRY ORDERAB LES Final Result Performing Organization Address [facility] Co de Phone Number [facility] [employer] [facility] CLIA# [id number] [address] [place] [address] * EXTRA TUBE (BLUE) (10/26/2024 8:10 PM CDT) Blood Venipuncture / Unknown 10/26/2024 8:10 PM CDT 10/26/2024 8:18 PM CDT Trent Vizcaino MD HEMATOLOGY ORDERA BLES Final Result Performing Organization Address City/[facility]/ZIP Co de Phone Number [facility] [employer] [facility] CLIA# [id number] [address], [place] [address] * EXTRA TUBE (SST/GOLD) (10/26/2024 8:10 PM CDT) Blood Venipuncture / Unknown 10/26/2024 8:10 PM CDT 10/26/2024 8:18 PM CDT Trent Vizcaino MD CHEMISTRY ORDERAB LES Final Result [facility] [employer] [facility] CLIA# [id number] [address] [place] [address] * EXTRA TUBE (PINK) (10/26/2024 8:10 PM CDT) Blood Venipuncture / Unknown 10/26/2024 8:10 PM CDT 10/26/2024 8:18 PM CDT Trent Vizcaino MD CHEMISTRY ORDERAB LES Final Result Performing Organization Address [facility]/ZIP Co de Phone Number [facility] CLMD# [id number] [address] [place] [address] * EXTRA TUBE (CRAIG) (10/26/2024 8:10 PM CDT) Blood Venipuncture / Unknown 10/26/2024 8:10 PM CDT 10/26/2024 8:18 PM CDT Trent Vizcaino MD CHEMISTRY ORDERAB LES Final Result Performing Organization Address [facility] Co de Phone Number [facility] [employer] [facility] CLMD# [id number] [address] [place] [address] * EXTRA TUBE (GREEN NO GEL) (10/26/2024 8:10 PM CDT) Blood Venipuncture / Unknown 10/26/2024 8:10 PM CDT 10/26/2024 8:19 PM CDT Trent Vizcaino MD CHEMISTRY ORDERAB LES Final Result Performing Organization Address [facility] Co de Phone Number [facility] [employer] [facility]# [id number] [address] [place] [address] * CARBOXYHEMOGLOBIN (10/25/2024 10:19 PM CDT) Only the most recent of4 resultswithin the time period is included. CARBOXYHEMOGLOBIN 2.4 <=7.0 % 025 10:33 PM CDT [facility] Comment: Reference Range: Non-Smokers: 0-2% Smokers: < or = 9% Toxic: > 15% HEMOGLOBIN ABG 12.3 11.8 - 14.8 g/dL 10/25/2024 10:33 PM CDT [facility] Blood Venipuncture / Unknown 10/25/2024 10:19 PM CDT 10/25/2024 10:28 PM CDT Kirk Olsen PA-C ABG ORDERABLES Final Resul t [facility]# [id number] [address] [place] [address] * LACTIC ACID (10/25/2024 1:35 AM CDT) LACTIC ACID 1.3 <=2.0 mmol/L 10/25/2024 2:10 AM CDT [facility] Blood Venipuncture / Unknown 10/25/2024 1:35 AM CDT 10/25/2024 1:48 AM CDT Kirk Olsen PA-C CHEMISTRY ORDERABLES Final Result Performing Organization Address City/[facility]/ZIP Co de Phone Number [facility]# [id number] [address] [place] [address] * (ABNORMAL) OXIMETRY (10/24/2024 10:03 PM CDT) Only the most recent of2 resultswithin the time period is included. OXYHEMOGLOBIN POC 89.5(L) 94.0 - 97.0 % 10/24/2024 10:03 PM CDT [facility] HEMOGLOBIN POC 12.4 11.8 - 14.8 g/dL 10/24/2024 10:03 PM CDT [facility] O2 SATURATION POC 100(H) 40 - 70 % 10/24/2024 10:03 PM T [facility] SPECIMEN SOURCE, GASES POC Venous 10/24/2024 10:03 PM T [facility] SAMPLE SITE, GASES POC N-SY 10/24/2024 10:03 PM CDT [facility] COMMENT, GASES POC Responsible Clinical Caregiver notified 10/24/2024 10:03 PM CDT [facility] Blood 10/24/2024 10:0 3 PM CDT 10/24/2024 10:05 PM CDT Trent Vizcaino MD ABG ORDERABLES F inal Result Performing Organization Address [facility]/ZIP Co de Phone Number [facility] CLIA# [id number] [address] [place] [address] * (ABNORMAL) METHEMOGLOBIN QUANTITATIVE (10/24/2024 10:03 PM CDT) Only the most recent of2 resultswithin the time period is included. METHEMOGLOBIN QUANT POC 1.6(H) <1.5 % 10/24/2024 10:03 PM T [facility] HEMOGLOBIN POC 12.4 11.8 - 14.8 g/dL 10/24/2024 10:03 PM T [facility] COMMENT, GASES POC Responsible Clinical Caregiver notified 10/24/2024 10:03 PM CDT [facility] Blood 10/24/2024 10:0 3 PM CDT 10/24/2024 10:05 PM CDT Trent Vizcaino MD ABG ORDERABLES F inal Result Performing Organization Address [facility]/ZIP Co de Phone Number [facility] CLIA# [id number] [address] [place] [address] * VERIFICATION BLOOD GROUP (10/24/2024 9:42 PM CDT) ABO GROUP O 10/24/2024 10:23 PM CDT [facility] SERVICES -- [facility] RH (D) TYPE Positive 10/24/2024 10:23 PM CDT [facility] -- [facility] Blood Venipuncture / Unknown 10/24/2024 9:42 PM CDT 10/24/2024 9:44 PM CDT Delfin Landin MD BLOOD BANK ORDERABLES Final Result [facility] -- [facility] CLIA# [id number] [address] [facility] [place] [address] * (ABNORMAL) DRUG SCREEN, URINE (10/24/2024 9:29 PM CDT) AMPHETAMINE QUAL, URINE Negative Negative 10/24/2024 10:15 PM CDT [facility] BARBITURATE QUAL, URINE Negative Negative 10/24/2024 10:15 PM CDT [facility] BENZODIAZEPINE QUAL, URINE Presumptive Positive(A) Negative 10/24/2024 10:15 PM CDT [facility] COCAINE QUAL URINE Negative Negative 10/24/2024 10:15 PM CDT [facility] OPIATE QUAL, URINE Negative Negative 10/24/2024 10:15 PM CDT [facility] CANNABINOIDS QUAL, URINE Negative Negative 10/24/2024 10:15 PM CDT [facility] PCP QUAL, URINE Negative Negative 10:15 PM CDT [facility] OXYCODONE QUAL, URINE Negative Negative 10/24/2024 10:15 PM CDT [facility] METHADONE QUAL, URINE Negative Negative 10/24/2024 10:15 PM CDT [facility] FENTANYL QUAL, URINE Presumptive Positive(A) Negative 10/24/2024 10:15 PM CDT [facility] CREATININE, URINE 85.4 29.0 - 226.0 mg/dL 10/24/2024 10:15 PM CDT [facility] Comment:Reference Range vari es with fluid intake and diet. Urine (Urine, indwelling (Mccollum) catheter) Collection / Unknown 10/24/2024 9:29 PM CDT 10/24/2024 9:31 PM CDT [facility] - 10/24/2024 10:15 PM CDT This test is a qualitative screen. The presumptive positive results should not be used for legal purposes. If confirmation of results is desired, the lab must be contacted without delay. Drug Ref. Range Screening Threshold Amphetamines Negative 500 ng/mL Barbiturates Negative 200 ng/mL Benzodiazepines Negative 100 ng/mL Cannabinoids Negative 50 ng/mL Cocaine Negative 150 ng/mL Methadone Negative 300 ng/mL Opiates Negative 300 ng/mL Oxycodone Negative 100 ng/mL Phencyclidine Negative 25 ng/mL Fentanyl Negative 5 ng/mL us Trent Vizcaino MD URINE ORDERABLES Final Result [facility]# [id number] [address] [place] [address] * PROTIME-INR (10/24/2024 9:18 PM CDT) PROTIME 14.2 12.7 - 15.1 Seconds 10/24/2024 9:49 PM CDT [facility] INR 1.1 0.9 - 1.1 10/24/2024 9:49 PM CDT [facility] Blood Venipuncture / Unknown 10/24/2024 9:18 PM CDT 10/24/2024 9:20 PM CDT [facility] - 10/24/2024 9:49 PM CDT INR Therapeutic Range: Adult: 2.0 - 3.0 for pulmonary embolism or prophylaxis against venous thrombosis or systemic embolization. 2.0 - 3.0 for patients with tissue heart valves. 2.5 - 3.5 for patients with mechanical heart valves or post CA. Pediatric (12 years and under): 1.5 - 3.0 Although the target range in children is not well established, INR values of 1.5 - 3.0 are recommended for most patients. Higher values have been used in children with prosthetic cardiac valves and hereditary clotting disorders. Slater (<3 days) therapeutic ranges have not been established. Trent Vizcaino MD HEMATOLOGY ORDERA BLES Final Result Performing Organization Address [facility] Co de Phone Number [facility] [employer] [facility]# [id number] [address] [place] [address] * FIBRINOGEN QUANTITATIVE (10/24/2024 9:18 PM CDT) FIBRINOGEN 322 205 - 450 mg/dL 10/24/2024 9:49 PM CDT [facility] Blood Venipuncture / Unknown 10/24/2024 9:18 PM CDT 10/24/2024 9:20 PM CDT Trent Vizcaino MD HEMATOLOGY ORDERA BLES Final Result Performing Organization Address [facility] de Phone Number [facility] [employer] [facility]# [id number] [address] [facility] [place] [address] * ETHANOL LEVEL (10/24/2024 9:18 PM CDT) ETHANOL <10.10 <10.10 mg/dL 10/24/2024 10:09 PM CDT [facility] ETHANOL % <0.01 %w/v 10/24/2024 10:09 PM CDT [facility] Blood Venipuncture / Unknown 10/24/2024 9:18 PM CDT 10/24/2024 9:30 PM CDT us Trent Vizcaino MD CHEMISTRY ORDERAB LES Final Result [facility]# [id number] [address] [place] [address] * Critical Care (10/24/2024 8:46 PM CDT) Narrative Trent Vizcaino MD - 10/24/2024 8:46 PM CDT Trent Vizcaino MD 10/24/2024 11:50 PM Critical Care Performed by: Trent Vizcaino MD Authorized by: Trent Vizcaino MD Critical care provider statement: Critical care time (minutes): 60 Critical care was necessary to treat or prevent imminent or life-threatening deterioration of the following conditions: Trauma Critical care was time spent personally by me on the following activities: Ordering and performing treatments and interventions, ordering and review of laboratory studies, ordering and review of radiographic studies, pulse oximetry, re-evaluation of patient's condition, review of old charts, discussions with consultants, evaluation of patient's response to treatment and examination of patient us Trent Vizcaino MD PROCEDURE/MINOR S URGICAL ORDERABLES Final Result from Last 3 Months Additional Health Concerns Infection Onset Date Last Indicated Multi Drug Resistant Organism (MDRO) 11/18/2024 11/18/2024 Insurance [facility] Advance Directives For more information, please contact: [phone] * Full Code (Latest Code Status on File) Date Activated Date Inactivated Comments 10/24/2024 10:57 PM 12/04/2024 6:20 PM Care Teams Maintenance 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
--- OUTSIDE RECORDS SUMMARY | 2024-12-23 14:31 | XMS_ITS | Clinical Summary ---
Author Organization [facility] Address [address] [place] [address] Care Team Providers Care Airline Hostess Name Role Phone KianaJm cheng Primary Care Provider [phone] Source Comments [facility],non-owned Affiliates and Associated Physician Practices is amultiple site organization consisting of ambulatory clinics and hospital sitesin [place], [place], [place] and [place]. This disclosure is being madepursuant to the Care Everywhere program and may not contain all information available regarding this patient. Last updated 18.[facility] Allergies Active Allergy Reactions Criticality Noted Date Comments Cephalosporins Anaphylaxis High 09/18/2016 Loracarbef Anaphylaxis High 07/27/2016 Nsaids Other,Anaphylaxis High 05/22/2012 Other 01/27/2010 Antibiotic not sure of spelling lonabid Sulfa Drugs Urticaria Medium 12/18/2017 Medications * This document contains information received from the source organization and may not represent a complete record from that organization. * Be aware that medications may not be up to date on this document. Alwaysverify current medications with the patient. therapeutic multivitamin-min erals (THERAGRAN-M) tablet Take 1 (one) tablet by mouth daily with food Active traMADol (ULTRAM) 50 MG tablet Take 1-2 tabs every 6 hours as needed for pain 150 tablet 2 8 Active Additional Information Patient taking differently: 50 mg Oral 2 TIMES DAILY PRN, Take 1-2 tabs every 6 hours as needed for pain, Reported on 11/29/2022 triamterene-hydr oCHLOROthiazide (MAXZIDE) 75-50 MG tablet TAKE 1 TABLET BY MOUTH EVERY DAY 90 tablet 3 9 Active carvedilol (COREG) 6.25 MG tablet Take 1 (one) tablet by mouth once daily 0 Active atorvastatin (LIPITOR) 40 MG tablet 2 Active esomeprazole (NEXIUM) 20 MG capsule Take 1 (one) capsule by mouth once daily Active zolpidem (AMBIEN) 5 MG tablet Take 0.5 (one-half) tablet by mouth nightly as needed for Insomnia Active vitamin D3 (CHOLECACIFEROL) 125 MCG (5000 UT) Take 1 (one) tablet by mouth once daily Active irbesartan (AVAPRO) 300 MG tabletIndication s:Leg swelling,Essenti al hypertension Take 1 (one) tablet by mouth once daily 90 tablet 1 2 Active diphenhydrAMINE (Benadryl) 25 MG capsule Take 25 mg every 6 hours for 48 hrs, then every 6 hours as needed 20 capsule 3 Active famotidine (Pepcid) 20 MG tablet Take 1 (one) tablet by mouth every 12 hours for 7 days 14 tablet 3 Active butalbital-aceta minophen-caffein e (Fioricet) 50-325-40 MG tablet Take 2 (two) tablets by mouth every 6 hours as needed for Headache 30 tablet 3 Active Active Problems Problem Noted Date Diagnosed Date Dyslipidemia 11/29/2022 Benign essential HTN 12/18/2017 Chronic depressive disorder 12/18/2017 Chronic bilateral low back pain without sciatica 12/18/2017 Pain in joint, multiple sites 12/18/2017 Pulmonary hypertension 12/18/2017 Chronic renal impairment, stage 3 (moderate) 06/2018 M obesity 12/11/2017 BMI 40.0-44.9, adult 12/11/2017 Post-menopause on HRT (hormone replacement thera py) 05/22/2012 Overview (05/22/2012): Unable to tolerate off HRT Encounters Date Type Department Care Team Description 12/19/2024 Telephone [facility] - Family Medicine [address] [place] [address] Elfego Cisneros MD [place] Referral from Last 3 Months Immunizations Immunization Administration Dates Next Due Covid Pfizer primary monoval ent 12+ yr 0.3mL Purple cap 10/20/2020,09/03/2020 Family History Medical History Relation Name Comments CVA Brother Alcohol abuse Father Alcohol abuse Mother Cancer - Colon Mother Mood Disorder Sister 1 suicide Alcohol abuse Sister 2 Relation Name Status Comments Brother (Age 65) Father Mother Sister 1 Sister 2 Alive Social History Tobacco Use Types Packs/Day Years Used Date Smoking Tobacco: Former Cigarettes 1 10 Smokeless Tobacco: Never Alcohol Use Standard Drinks/Week Comments Yes 0 (1 standard drink = 0.6 oz pur e alcohol) Social AUDIT-C Answer Date Recorded Frequency of Alcohol Consumption Not on file 03/04/2023 Q2: How many drinks containi ng alcohol do you have on a typical day when you are drinking? 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 Gender Identity Female 11/17/2021 11:10 AM CDT Sexual Orientation Straight 11/17/2021 11 :10 AM CDT Last Filed Vital Signs Vital Sign Reading Time Taken Comments Blood Pressure 165/72 03/04/2023 5:17 PM CDT Pulse 66 03/04/2023 5:17 PM CDT Temperature 36.4 C (97.5 F) 03/04/2023 5:47 PM CDT Respiratory Rate 12 03/04/2023 5:17 PM CDT Oxygen Saturation 95% 03/04/2023 5:17 PM CDT Inhaled Oxygen Concentration - - Weight 78.5 kg (173 lb) 11/29/2022 1:20 PM CDT Height 152.4 cm (5') 11/29/2022 1:20 PM CDT Body Mass Index 33.79 11/29/2022 1:20 PM CDT Plan of Treatment Health Maintenance Due Date Last Done Comments BONE DENSITY TESTING 1950 HEPATITIS C SCREENING 02/11/1966 DTAP/TDAP/TD VACCINES (1 - Tdap) 02/15/1967 PNEUMOCOCCAL VACCINE 50+ (1 of 1 - PCV) 02/15/1998 ZOSTER VACCINE (1 of 2) 02/15/1998 Respiratory Syncytial Virus (RSV) Vaccine Pt: or over 60 yrs (1 - 1-dose 75+ series) 02/15/2023 COVID-19 VACCINE ( - season) 2024 04/03/2022, 11/25/2021, 04/28/2021, Additional history exists DEPRESSION SCREENING 07/09/2024 11/29/2022 MEDICARE AWV CALENDAR YEAR 2024 INFLUENZA VACCINE (Season Ended) 2025 04/03/2022, 03/18/2021, 03/07/2020, Additional history exists SCREENING FOR DIABETES 03/04/2026 , 11/28/2022, 11/28/2022, Additional history exists HEPATITIS B VACCINE Aged Out No longe r eligible based on patient's age to complete this topic HIB VACCINE Aged Out No longer eligi ble based on patient's age to complete this topic HPV VACCINE Aged Out No longer eligi ble based on patient's age to complete this topic MENINGOCOCCAL (Group B) VACCINE SHARED DECISION-MAKING Aged Out No longer eligible based on patient's age to complete this topic MENINGOCOCCAL GROUPS A/C/Y/W VACCINE Aged Out No longer eligible based on patient's age to complete this topic Procedures Procedure Name Priority Date/Time Associated Diagnosis Comments COMPREHENSIVE METABOLIC PANEL STAT 03/04/2023 3:05 PM CDT from Last 3 Months or Most Recently Relevant to Health Maintenance Results * (ABNORMAL) COMPREHENSIVE METABOLIC PANEL (03/04/2023 3:05 PM CDT) [facility] Glucose 93 70 - 105 mg/dL 03/04/2023 3:35 PM CDT [facility] Sodium 135(L) 136 - 145 mmol/L 03/04/2023 3:35 PM CDT [facility] Potassium 4.8 3.5 - 5.1 mmol/L 03/04/2023 3:35 PM CDT [facility] Chloride 105 98 - 107 mmol/L 03/04/2023 3:35 PM CDT [facility] CO2 21(L) 22 - 29 mmol/L 03/04/2023 3:35 PM CDT [facility] Calcium 9.1 8.4 - 10.4 mg/dL 03/04/2023 3:35 PM CDT [facility] Anion Gap 9 6 - 16 mmol/L 03/04/2023 3:35 PM CDT [facility] BUN 28(H) 7 - 26 mg/dL 03/04/2023 3:35 PM CDT [facility] Creatinine 1.10 0.57 - 1.11 mg/dL 03/04/2023 3:35 PM CDT [facility] Alkaline Phosphatase 81 40 - 150 U/L 03/04/2023 3:35 PM CDT [facility] ALT 15 0 - 55 U/L 03/04/2023 3:35 PM CDT [facility] AST 18 5 - 34 U/L 03/04/2023 3:35 PM CDT [facility] Protein Total 9.4(H) 6.4 - 8.3 gm/dL 03/04/2023 3:35 PM CDT [facility] Albumin 3.4 3.4 - 5.0 gm/dL 03/04/2023 3:35 PM CDT [facility] Bilirubin Total 0.4 0.2 - 1.2 mg/dL 03/04/2023 3:35 PM CDT [facility] eGFR by CKD-EPI 52(L) >=90 mL/min/1.7 3 m2 03/04/2023 3:35 PM CDT [facility] Blood BLOOD SPECIMEN / Unknown Venipuncture / Unknown 03/04/2023 3:05 PM CDT 03/04/2023 3:15 PM CDT us Dangelo Haywood MD LAB - CHEMISTRY ORDERABLES Final Result [facility] [address] [place] [address] from Last 3 Months or Most Recently Relevant to Health Maintenance Insurance [facility] MANAGED MEDICARE ADV ANTHEM Care Teams Airline Hostess Relationship Specialty Start Date End Date Jm Bruno DO [address] [place] [address] PCP - General Family Medicine 09/23/21
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
[2024-12-23 15:49] LABS: MRSA (PCR) DETECTED (NOT DETECTE)
[2024-12-23] MEDS: ACETAMINOPHEN 325 MG TABLET 650 MG PO (15:53)
[2024-12-23] MEDS: MEROPENEM 1 GM/NS 100 ML 1 GM/100 ML BAG IVPB (16:04)
--- NOTE | 2024-12-23 16:08 | ECG_ITS ---
Test Date: 2024-12-23 16:14:48 Measurements Intervals [place] Rate: 104 P: 71 ID: 165 QRS: -38 QRSD: 142 T: 104 QT: 368 QTc: 485 Interpretive Statements SINUS TACHYCARDIA LEFT AXIS DEVIATION LEFT BUNDLE BRANCH BLOCK BASELINE ARTIFACT- I, II, III, AVR ABNORMAL ECG Compared to ECG 12/23/2024 12:56:34 NO SIGNIFICANT CHANGE Electronically Signed On 12-23-2024 16:50:31 CDT by Pablo Flores D.O.
[2024-12-23 16:27] LABS: Add Urine Microscopic? YES; Appearance Urine Clear (Clear); Bacteria Urine Rare /hpf; Bilirubin Urine Negative (Negative); Blood Urine Negative (Negative); Color Urine Yellow (Yellow); Glucose Urine UA Negative (Negative); Ketones Urine Negative (Negative); Leukocyte Esterase Ur 3+ LEU/UL (Negative); Need Manual Microscopic Reviewed; Nitrate Urine Negative (Negative); Non Pathogenic Casts 0-2; Protein Urine Negative (Negative); RBC Urine 0-2 /hpf (0-2); Specific Grav Ur 1.039 (1.001-1.035); Squamous Epithelial Cell Urine None Seen /hpf (Few); Urobilinogen Urine 0.2 mg/dL (<2.0); WBC Urine >100 /hpf (0-3)
[2024-12-23] MEDS: VANCOMYCIN 1,750 MG/NS 500 ML 1,750 MG/500 ML BAG 250 MG IVPB (16:35)
[2024-12-23 17:01] LABS: Troponin I 0.032 ng/mL (0.000-0.034)
[2024-12-23] MEDS: LACTATED RINGERS 1,000 ML 999 ML IV CONT ×2 (17:38→18:39)
[2024-12-23 18:27] LABS: Magnesium 1.1 mg/dL (1.6-2.3)
--- NOTE | 2024-12-23 18:30 | ADMGEN ---
This patient, Lynette Watson, was admitted to Medical Room 345-. Patient/family oriented to hospital policies and general routines including ID bracelet, bed and alarms, visiting hours, pain management, procedures, bathroom and other care routines, personal items, smoking policy, room service/diet, and visiting hours. Information on how to activate the Rapid Response Team has been discussed. Patient/Family are encouraged to report perceived risks to care and to ask questions if they do not understand what they are told or what they should do.
[2024-12-23] MEDS: MAGNESIUM SULF 2 GM/WATER 50ML 2 GM/50 ML BAG IVPB (19:44)
[2024-12-23] MEDS: IPRATROPIUM 0.5 MG/ALBUTEROL SULFATE 2.5 MG AMPUL.NEB 3 ML INHALATION (19:57)
[2024-12-23] MEDS: ZOLPIDEM TARTRATE (*CRX) 5 MG TABLET PO (21:22)
[2024-12-23] MEDS: carvediloL 3.125 MG TABLET PO (21:22)
[2024-12-23] MEDS: MUPIROCIN 2% OINT 22 GM TUBE 1 APPLIC EACH NARE (21:23)
[2024-12-23] MEDS: guaiFENesin 12 HR 600 MG TABCR PO (21:23)
[2024-12-23] MEDS: ALPRAZolam (*CRX) 0.125 MG TABLET PO (22:54)
[2024-12-24] VITALS (12 sets, daily range): BP systolic 122–133; BP diastolic 44–52; PULSE 65–90; RESP 14–20; TEMP 36.2–36.7; O2SAT 90–100
[2024-12-24] MEDS: IPRATROPIUM 0.5 MG/ALBUTEROL SULFATE 2.5 MG AMPUL.NEB 3 ML INHALATION ×2 (01:43→08:10)
[2024-12-24] MEDS: MEROPENEM 1 GM/NS 100 ML 1 GM/100 ML BAG IVPB ×2 (04:18→15:30)
[2024-12-24 05:32] LABS: Basophils Absolute Auto 0.1 K/mm3 (0.0-0.1); Basophils Percent Auto 0.3 % (0.2-1.2); Eosinophils Absolute Auto 0.2 K/mm3 (0-0.3); Eosinophils Percent Auto 0.9 % (0-4.4); Hematocrit 25.8 % (37.0-47.0); Hemoglobin 7.9 g/dL (12.0-15.0); Immature Granulocyte Absolute 0.23 K/mm3 (0.00-0.031); Lymphocytes Absolute Auto 2.67 K/mm3 (0.9-3.2); Mean Corpuscular HGB Conc 30.6 g/dl (32-36); Mean Corpuscular Hemoglobin 29.4 pg (26-34); Mean Corpuscular Volume 95.9 fl (80-100); Mean Platelet Volume 7.9 fl (7.4-10.4); Monocytes Absolute Auto 1.3 K/mm3 (0.1-0.6); Monocytes Percent Auto 5.6 % (2.6-8.5); Neutrophils Absolute Auto 17.8 K/mm3 (1.3-6.7); Neutrophils Percent Auto 80.2 % (45.5-73.1); Platelet Count Result 309 k/mm3 (150-375); Red Blood Count 2.69 M/mm3 (4.2-5.4); Red Cell Distribution Width 15.2 % (11.5-14.5); White Blood Count 22.2 K/mm3 (4.5-10.0)
[2024-12-24 05:48] LABS: Alanine Aminotransferase 12 U/L (6-35); Albumin Level 2.5 g/dL (3.5-5.1); Alkaline Phosphatase 91 U/L (38-126); Anion Gap 7 mmol/L (4-12); Aspartate Amino Transferase 20 U/L (14-36); Bilirubin,Total 0.3 mg/dL (0.2-1.3); Blood Urea Nitrogen 15 mg/dL (7-17); Carbon Dioxide 22 mmol/L (22-30); Chloride 105 mmol/L (98-107); Estimated CRCL calculation 45 ml/min; Estimated Glomerular Filt Rate > 60; Glucose 78 mg/dL (65-110); Magnesium 1.6 mg/dL (1.6-2.3); Potassium 4.6 mmol/L (3.4-5.0); Sodium 134 mmol/L (137-145); Total Protein 6.7 g/dL (6.3-8.2)
[2024-12-24] MEDS: PANTOPRAZOLE 40 MG TABLET PO (08:53)
[2024-12-24] MEDS: ATORVASTATIN 40 MG TABLET PO (08:53)
[2024-12-24] MEDS: guaiFENesin 12 HR 600 MG TABCR PO ×2 (08:53→20:34)
[2024-12-24] MEDS: carvediloL 3.125 MG TABLET PO ×2 (08:53→20:34)
[2024-12-24] MEDS: ENOXAPARIN 40 MG/0.4 ML SYRINGE SUB-Q (08:54)
[2024-12-24] MEDS: MUPIROCIN 2% OINT 22 GM TUBE 1 APPLIC EACH NARE ×2 (08:56→20:52)
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
[2024-12-24] MEDS: VANCOMYCIN 1,250 MG/NS 250 ML 1,250 MG/250 ML BAG 166.67 MG IVPB (15:30)
[2024-12-24] MEDS: diphenhydrAMINE HCl CAP 25 MG CAPSULE PO (17:34)
[2024-12-24] MEDS: ALPRAZolam (*CRX) 0.125 MG TABLET PO (18:24)
[2024-12-24] MEDS: ZOLPIDEM TARTRATE (*CRX) 5 MG TABLET PO (20:34)
--- NOTE | 2024-12-24 21:20 | PCRCNOTE ---
Patient states that she experiences headaches with Albuterol; recently and previously; refused the last couple of treatments
[2024-12-25] VITALS (7 sets, daily range): BP systolic 129–143; BP diastolic 47–72; PULSE 73–80; RESP 16–20; TEMP 36.3–36.9; O2SAT 95–99
[2024-12-25] MEDS: ALPRAZolam (*CRX) 0.125 MG TABLET PO ×3 (00:34→17:35)
[2024-12-25] MEDS: MEROPENEM 1 GM/NS 100 ML 1 GM/100 ML BAG IVPB (04:35)
[2024-12-25 05:34] LABS: Hematocrit 25.5 % (37.0-47.0); Hemoglobin 7.8 g/dL (12.0-15.0); Mean Corpuscular HGB Conc 30.6 g/dl (32-36); Mean Corpuscular Hemoglobin 29.5 pg (26-34); Mean Corpuscular Volume 96.6 fl (80-100); Mean Platelet Volume 8.1 fl (7.4-10.4); Platelet Count Result 321 k/mm3 (150-375); Red Blood Count 2.64 M/mm3 (4.2-5.4); White Blood Count 16.4 K/mm3 (4.5-10.0)
[2024-12-25 05:53] LABS: Anion Gap 6 mmol/L (4-12); Blood Urea Nitrogen 12 mg/dL (7-17); Calcium 7.9 mg/dL (8.4-10.2); Carbon Dioxide 23 mmol/L (22-30); Chloride 106 mmol/L (98-107); Estimated CRCL calculation 46 ml/min; Estimated Glomerular Filt Rate > 60; Glucose 77 mg/dL (65-110); Potassium 3.8 mmol/L (3.4-5.0); Sodium 135 mmol/L (137-145)
[2024-12-25] MEDS: guaiFENesin 12 HR 600 MG TABCR PO ×2 (08:54→21:24)
[2024-12-25] MEDS: ENOXAPARIN 40 MG/0.4 ML SYRINGE SUB-Q (08:54)
[2024-12-25] MEDS: ATORVASTATIN 40 MG TABLET PO (08:54)
[2024-12-25] MEDS: PANTOPRAZOLE 40 MG TABLET PO (08:55)
[2024-12-25] MEDS: carvediloL 3.125 MG TABLET PO ×2 (08:55→21:24)
[2024-12-25] MEDS: MUPIROCIN 2% OINT 22 GM TUBE 1 APPLIC EACH NARE ×2 (08:57→21:26)
[2024-12-25] MEDS: EUCERIN CREAM 120 GM JAR 1 APPLIC TOPICAL ×2 (08:58→21:43)
[2024-12-25] MEDS: LINEZOLID 600 MG TABLET PO ×2 (08:59→21:23)
--- NOTE | 2024-12-25 09:15 | PCPTNOTE ---
Attempted PT evaluation, pt stated not right now. Pt reports not feeling well enough. Pt coughing. Nursing present with pt. Will follow.
[2024-12-25 10:08] LABS: Magnesium 1.5 mg/dL (1.6-2.3); Phosphorus 4.5 mg/dL (2.5-4.5)
[2024-12-25] MEDS: MAGNESIUM SULF 2 GM/WATER 50ML 2 GM/50 ML BAG IVPB (11:34)
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
[2024-12-25] MEDS: PIPERACILLIN/TAZ 4.5G/NS 100ML 4.5 GM/100 ML BAG IVPB (17:17)
[2024-12-25] MEDS: BENZONATATE 100 MG CAPSULE PO (17:36)
[2024-12-25] MEDS: ZOLPIDEM TARTRATE (*CRX) 5 MG TABLET PO (21:24)
[2024-12-26] MEDS: PIPERACILLIN/TAZ 4.5G/NS 100ML 4.5 GM/100 ML BAG IVPB ×4 (00:26→17:46)
[2024-12-26] MEDS: ALPRAZolam (*CRX) 0.125 MG TABLET PO ×3 (03:30→21:31)
[2024-12-26 05:28] VITALS: BP 155/68; PULSE 76; RESP 16; TEMP 36.6; O2SAT 98
[2024-12-26 05:53] LABS: Basophils Absolute Auto 0.1 K/mm3 (0.0-0.1); Basophils Percent Auto 0.5 % (0.2-1.2); Eosinophils Absolute Auto 0.5 K/mm3 (0-0.3); Eosinophils Percent Auto 4.4 % (0-4.4); Hematocrit 25.5 % (37.0-47.0); Hemoglobin 7.9 g/dL (12.0-15.0); Immature Granulocyte Percent A 0.8 % (0-0.5); Lymphocytes Absolute Auto 2.41 K/mm3 (0.9-3.2); Lymphocytes Percent Auto 20.2 % (18.3-44.2); Mean Corpuscular Hemoglobin 29.8 pg (26-34); Mean Corpuscular Volume 96.2 fl (80-100); Mean Platelet Volume 8.2 fl (7.4-10.4); Monocytes Absolute Auto 0.9 K/mm3 (0.1-0.6); Monocytes Percent Auto 7.8 % (2.6-8.5); Neutrophils Absolute Auto 7.9 K/mm3 (1.3-6.7); Neutrophils Percent Auto 66.3 % (45.5-73.1); Platelet Count Result 343 k/mm3 (150-375); Red Blood Count 2.65 M/mm3 (4.2-5.4); Red Cell Distribution Width 14.7 % (11.5-14.5); White Blood Count 11.9 K/mm3 (4.5-10.0)
[2024-12-26 06:40] LABS: Alanine Aminotransferase 10 U/L (6-35); Albumin Level 2.5 g/dL (3.5-5.1); Alkaline Phosphatase 90 U/L (38-126); Anion Gap 5 mmol/L (4-12); Aspartate Amino Transferase 19 U/L (14-36); Bilirubin,Total 0.2 mg/dL (0.2-1.3); Blood Urea Nitrogen 11 mg/dL (7-17); Calcium 7.9 mg/dL (8.4-10.2); Carbon Dioxide 23 mmol/L (22-30); Chloride 106 mmol/L (98-107); Estimated CRCL calculation 44 ml/min; Estimated Glomerular Filt Rate > 60; Glucose 81 mg/dL (65-110); Magnesium 1.8 mg/dL (1.6-2.3); NT Pro B Type Natriuretic Pept 3120 pg/mL (19.9-100); Sodium 134 mmol/L (137-145); Total Protein 6.7 g/dL (6.3-8.2)
[2024-12-26 08:00] VITALS: O2SAT 96
[2024-12-26 10:06] VITALS: PULSE 75
[2024-12-26] MEDS: PANTOPRAZOLE 40 MG TABLET PO (10:06)
[2024-12-26] MEDS: BENZONATATE 100 MG CAPSULE PO (10:06)
[2024-12-26] MEDS: ATORVASTATIN 40 MG TABLET PO (10:06)
[2024-12-26] MEDS: ENOXAPARIN 40 MG/0.4 ML SYRINGE SUB-Q (10:06)
[2024-12-26] MEDS: LINEZOLID 600 MG TABLET PO ×2 (10:06→21:34)
[2024-12-26] MEDS: carvediloL 3.125 MG TABLET PO ×2 (10:06→21:32)
[2024-12-26] MEDS: guaiFENesin 12 HR 600 MG TABCR PO ×2 (10:07→21:34)
[2024-12-26] MEDS: EUCERIN CREAM 120 GM JAR 1 APPLIC TOPICAL ×2 (10:08→21:34)
[2024-12-26] MEDS: MUPIROCIN 2% OINT 22 GM TUBE 1 APPLIC EACH NARE ×2 (10:08→21:42)
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
[2024-12-26 14:00] VITALS: BP 138/67; PULSE 66; RESP 20; TEMP 36.4; O2SAT 100
--- NOTE | 2024-12-26 15:28 | PC.NURSE ---
RN spoke to patient's daughter, Nayeli, and provided an update.
[2024-12-26] MEDS: AMIKACIN SULFATE IVPB (17:32)
[2024-12-26] MEDS: DEXTROSE 5% IVPB (17:32)
[2024-12-26 19:51] VITALS: BP 138/62; PULSE 74; RESP 16; TEMP 36.4; O2SAT 99
[2024-12-26 21:32] VITALS: PULSE 76
[2024-12-26] MEDS: AMOXICILLIN/CLAVULANATE K 875-125 MG TAB 1 TABLET PO (21:32)
[2024-12-26] MEDS: ZOLPIDEM TARTRATE (*CRX) 5 MG TABLET PO (21:35)
[2024-12-27] VITALS (11 sets, daily range): BP systolic 112–152; BP diastolic 52–66; PULSE 73–81; RESP 16–24; TEMP 36.4–37.1; O2SAT 95–97
[2024-12-27] MEDS: PIPERACILLIN/TAZ 4.5G/NS 100ML 4.5 GM/100 ML BAG IVPB (01:36)
[2024-12-27 06:23] LABS: Basophils Absolute Auto 0.1 K/mm3 (0.0-0.1); Basophils Percent Auto 0.5 % (0.2-1.2); Eosinophils Absolute Auto 0.6 K/mm3 (0-0.3); Eosinophils Percent Auto 4.5 % (0-4.4); Hematocrit 26.8 % (37.0-47.0); Hemoglobin 8.3 g/dL (12.0-15.0); Immature Granulocyte Absolute 0.13 K/mm3 (0.00-0.031); Immature Granulocyte Percent A 1.1 % (0-0.5); Lymphocytes Absolute Auto 2.79 K/mm3 (0.9-3.2); Lymphocytes Percent Auto 22.6 % (18.3-44.2); Mean Corpuscular Hemoglobin 29.3 pg (26-34); Mean Corpuscular Volume 94.7 fl (80-100); Mean Platelet Volume 7.8 fl (7.4-10.4); Monocytes Absolute Auto 1.1 K/mm3 (0.1-0.6); Monocytes Percent Auto 8.9 % (2.6-8.5); Neutrophils Absolute Auto 7.7 K/mm3 (1.3-6.7); Neutrophils Percent Auto 62.4 % (45.5-73.1); Platelet Count Result 335 k/mm3 (150-375); Red Blood Count 2.83 M/mm3 (4.2-5.4); Red Cell Distribution Width 14.6 % (11.5-14.5); White Blood Count 12.4 K/mm3 (4.5-10.0)
[2024-12-27 06:45] LABS: Alanine Aminotransferase 12 U/L (6-35); Albumin Level 2.6 g/dL (3.5-5.1); Alkaline Phosphatase 88 U/L (38-126); Anion Gap 8 mmol/L (4-12); Aspartate Amino Transferase 19 U/L (14-36); Bilirubin,Total 0.2 mg/dL (0.2-1.3); Blood Urea Nitrogen 9 mg/dL (7-17); Calcium 7.8 mg/dL (8.4-10.2); Carbon Dioxide 23 mmol/L (22-30); Chloride 104 mmol/L (98-107); Estimated CRCL calculation 41 ml/min; Estimated Glomerular Filt Rate > 60; Glucose 91 mg/dL (65-110); Magnesium 1.4 mg/dL (1.6-2.3); Potassium 3.7 mmol/L (3.4-5.0); Sodium 135 mmol/L (137-145); Total Protein 6.8 g/dL (6.3-8.2)
[2024-12-27] MEDS: LINEZOLID 600 MG TABLET PO ×2 (08:39→20:52)
[2024-12-27] MEDS: ENOXAPARIN 40 MG/0.4 ML SYRINGE SUB-Q (08:39)
[2024-12-27] MEDS: carvediloL 3.125 MG TABLET PO ×2 (08:39→20:52)
[2024-12-27] MEDS: AMOXICILLIN/CLAVULANATE K 875-125 MG TAB 1 TABLET PO ×2 (08:39→20:52)
[2024-12-27] MEDS: BENZONATATE 100 MG CAPSULE PO (08:39)
[2024-12-27] MEDS: ALPRAZolam (*CRX) 0.125 MG TABLET PO ×3 (08:39→23:50)
[2024-12-27] MEDS: PANTOPRAZOLE 40 MG TABLET PO (08:40)
[2024-12-27] MEDS: ATORVASTATIN 40 MG TABLET PO (08:40)
[2024-12-27] MEDS: guaiFENesin 12 HR 600 MG TABCR PO ×2 (08:40→20:52)
[2024-12-27] MEDS: MUPIROCIN 2% OINT 22 GM TUBE 1 APPLIC EACH NARE ×2 (08:46→20:55)
[2024-12-27] MEDS: EUCERIN CREAM 120 GM JAR 1 APPLIC TOPICAL ×2 (08:46→20:54)
[2024-12-27 09:58] LABS: Glucose Point of Care 124 mg/dl (65-105)
[2024-12-27] MEDS: MAGNESIUM SULF 2 GM/WATER 50ML 2 GM/50 ML BAG IVPB (10:03)
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
[2024-12-27] MEDS: TRIAMTERENE 37.5 MG/HCTZ 25 MG (MAXZIDE) TABLET 2 TAB PO (12:59)
[2024-12-27] MEDS: ZOLPIDEM TARTRATE (*CRX) 5 MG TABLET PO (20:54)
[2024-12-28 05:34] VITALS: BP 150/50; PULSE 76; RESP 18; O2SAT 96
[2024-12-28 05:36] LABS: Basophils Absolute Auto 0.1 K/mm3 (0.0-0.1); Basophils Percent Auto 0.5 % (0.2-1.2); Eosinophils Absolute Auto 0.4 K/mm3 (0-0.3); Eosinophils Percent Auto 3.7 % (0-4.4); Hematocrit 26.1 % (37.0-47.0); Hemoglobin 8.3 g/dL (12.0-15.0); Immature Granulocyte Absolute 0.12 K/mm3 (0.00-0.031); Immature Granulocyte Percent A 1.1 % (0-0.5); Lymphocytes Absolute Auto 3.03 K/mm3 (0.9-3.2); Lymphocytes Percent Auto 28.4 % (18.3-44.2); Mean Corpuscular HGB Conc 31.8 g/dl (32-36); Mean Corpuscular Hemoglobin 29.5 pg (26-34); Mean Corpuscular Volume 92.9 fl (80-100); Mean Platelet Volume 7.8 fl (7.4-10.4); Monocytes Percent Auto 9.7 % (2.6-8.5); Neutrophils Percent Auto 56.6 % (45.5-73.1); Platelet Count Result 321 k/mm3 (150-375); Red Blood Count 2.81 M/mm3 (4.2-5.4); Red Cell Distribution Width 14.5 % (11.5-14.5); White Blood Count 10.7 K/mm3 (4.5-10.0)
[2024-12-28 05:54] LABS: Alanine Aminotransferase 10 U/L (6-35); Albumin Level 2.6 g/dL (3.5-5.1); Alkaline Phosphatase 86 U/L (38-126); Anion Gap 6 mmol/L (4-12); Aspartate Amino Transferase 22 U/L (14-36); Bilirubin,Total 0.2 mg/dL (0.2-1.3); Blood Urea Nitrogen 7 mg/dL (7-17); Carbon Dioxide 23 mmol/L (22-30); Chloride 107 mmol/L (98-107); Estimated CRCL calculation 45 ml/min; Estimated Glomerular Filt Rate > 60; Glucose 82 mg/dL (65-110); Magnesium 1.7 mg/dL (1.6-2.3); Potassium 3.7 mmol/L (3.4-5.0); Sodium 136 mmol/L (137-145); Total Protein 6.9 g/dL (6.3-8.2)
[2024-12-28 06:12] LABS: Vitamin D 25 Hydroxy 28.5 ng/mL
[2024-12-28 09:59] VITALS: PULSE 96
[2024-12-28] MEDS: ENOXAPARIN 40 MG/0.4 ML SYRINGE SUB-Q (09:59)
[2024-12-28] MEDS: BENZONATATE 100 MG CAPSULE PO (09:59)
[2024-12-28] MEDS: guaiFENesin 12 HR 600 MG TABCR PO (09:59)
[2024-12-28] MEDS: AMOXICILLIN/CLAVULANATE K 875-125 MG TAB 1 TABLET PO (09:59)
[2024-12-28] MEDS: carvediloL 3.125 MG TABLET PO (09:59)
[2024-12-28] MEDS: ATORVASTATIN 40 MG TABLET PO (10:00)
[2024-12-28] MEDS: ALPRAZolam (*CRX) 0.125 MG TABLET PO (10:00)
[2024-12-28] MEDS: CHOLECALCIFEROL (VITAMIN D3) 25 MCG (1,000 UNITS) TABLET PO (10:00)
[2024-12-28] MEDS: MAGNESIUM OXIDE 400 MG TABLET PO (10:00)
[2024-12-28] MEDS: TRIAMTERENE 37.5 MG/HCTZ 25 MG (MAXZIDE) TABLET 2 TAB PO (10:00)
[2024-12-28] MEDS: PANTOPRAZOLE 40 MG TABLET PO (10:00)
[2024-12-28] MEDS: LINEZOLID 600 MG TABLET PO (10:00)
[2024-12-28] MEDS: EUCERIN CREAM 120 GM JAR 1 APPLIC TOPICAL (10:01)
[2024-12-28] MEDS: MUPIROCIN 2% OINT 22 GM TUBE 1 APPLIC EACH NARE (10:01)
[2024-12-28 10:12] VITALS: O2SAT 96
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
[2025-01-02 23:03] LABS: Parathyroid HormoneRelated Pr. 9 pg/mL (11-20)
== END 2024-12-28 14:00 | DRG 193 ==
LOC: ANHED 13:49 → ANH3MEDSUR 16:22 → ANH3MED 16:54
PROVIDERS: Nurse Practitioner; Student in an Organized Health Care Education/Training Program; Admitting Provider General Practice; Emergency Provider Emergency Medicine; Visit Provider Nurse Practitioner Family
DX: J18.9 Pneumonia, unspecified organism (principal); J96.01 Acute respiratory failure with hypoxia; N39.0 Urinary tract infection, site not specified; I10 Essential (primary) hypertension; E83.42 Hypomagnesemia; E78.5 Hyperlipidemia, unspecified; K21.9 Gastro-esophageal reflux disease without esophagitis; B96.5 Pseudomonas (aeruginosa) (mallei) (pseudomallei) as the cause of diseases classified elsewhere; Z20.822 Contact with and (suspected) exposure to COVID-19
CPT/HCPCS: 36415; 36600; 71045; 71275; 74230; 80048; 80053; 81001; 82306; 82805; 82948; 83519; 83605; 83735; 83880; 84100; 84145; 84484; 85018; 85025; 85027; 85610; 85730; 87040; 87070; 87086; 87186; 87205; 87637; 87641; 92610; 92611; 93005; 94640; 96361; 96365; 96366; 96367; 96368; 96372; 96375; 97110; 97116; 97162; 97166; 97530; 97535; 99285; A9270; G0378; J0278; J1650; J2185; J2543; J3370; J3475; J7120; Q9967

== ENCOUNTER 2025-01-23 13:12 | Emergency (ER) | payer MEDICARE, SELFPAY ==
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
== END 2025-01-23 13:45 | disposition short-term general hospital (02) ==
LOC: EXPGOSH 13:17
PROVIDERS: Emergency Provider Nurse Practitioner Family; PCP Family Medicine
DX: R22.43 Localized swelling, mass and lump, lower limb, bilateral (principal); I10 Essential (primary) hypertension; E78.5 Hyperlipidemia, unspecified; K21.9 Gastro-esophageal reflux disease without esophagitis; I27.20 Pulmonary hypertension, unspecified
CPT/HCPCS: 99212; G0463

== ENCOUNTER 2025-01-23 14:15 | Emergency (ER) | payer MEDICARE, SELFPAY ==
--- OUTSIDE RECORDS SUMMARY | 2025-01-23 14:18 | XMS_ITS | Referral Summary ---
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 Gender Identity Not on file Sexual Orientation [...] on file Medical Devices Implanted Type Area Counter Supervisor Device Identifier Shelf Expiration Date Model / Serial / Lot [employer] [place] R High Viscosity Cement 40gm Bone Green [id number] - [id number] Implanted:Qty: 1 on 01/18/2022 by Brent Russell MD at [facility] Right: Knee [employer] 12/07/2023 [id number] / / [id number] [employer] Persona Cemented Posterior Stabilize Knee Right 5 Standard [id number] - [id number] Implanted:Qty: 1 on 01/18/2022 by Brent Russell MD at [facility] Right: Knee [employer] [id number] 01/04/2031 [id number] / / [id number] [employer] [id number] Persona Cemented Stem Knee Right 5d C Baseplate Tibial Tivanium - [id number] Implanted:Qty: 1 on 01/18/2022 by Brent Russell MD at [facility] Right: Knee [employer] [id number] 02/28/2031 [id number] / / [id number] [employer] [id number] Persona 13mm Posterior Stabilized Knee Right 3-5 C-D Insert - [id number] Implanted:Qty: 1 on 01/18/2022 by Brent Russell MD at [facility] Right: Knee [employer] [id number] 05/10/2029 [id number] / / [id number] Synthes 3.5mm 6mm 34mm 2.5mm Self Tap Small Hexagonal Socket Low Profile 204.834 - [id number] Implanted:Qty: 1 on 01/18/2022 by Brent Russell MD at [facility] Right: Knee Synthes I 204.834 / / Synthes 3.5mm 6mm 28mm 2.5mm Self Tap Small Hexagonal Socket Low Profile 204.828 - [id number] Implanted:Qty: 1 on 01/18/2022 by Brent Russell MD at [facility] Right: Knee Synthes I 204.828 / / Synthes Lcp Combi [id number] 4 Hole Head 4 Hole Shaft Right Angle T 241.141 - [id number] Implanted:Qty: 1 on 01/18/2022 by Brent Russell MD at [facility] Right: Knee Synthes I 241.141 / / Insurance [facility] Address: [address] [place] [id number] [facility] Address: [address] [address] [place] [id number] [facility] Address: [address] [address] Advance Directives For more information, please contact: [phone] * Full Code (Latest Code Status on File) Date Activated Date Inactivated Comments 01/26/2022 9:01 PM 01/30/2022 6:39 PM * Full Code Date Activated Date Inactivated Comments 01/18/2022 3:00 PM 01/22/2022 9:37 PM Care Teams Parts Analyst Relationship Specialty Start Date End Date Evelyn Lopes DO [address] [facility] [address] [place] [id number] PCP - General 01/30/22 Brent Russell MD Surgeon Orthopedic Surgery 01/18/22 Evelyn Lopes DO [address] [facility] [address] [place] [address] Consulting Physician Family Medicine 01/30/22
[2025-01-23 14:19] VITALS: BP 158/66; PULSE 75; RESP 16; TEMP 36.6; O2SAT 97
--- OUTSIDE RECORDS SUMMARY | 2025-01-23 14:19 | XMS_ITS | Clinical Summary ---
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 Result [facility]# [id number] [address] [facility] [place] [address] * HEPATITIS B SURFACE ANTIGEN (11/20/2024 3:10 PM CDT) [facility] HEPATITIS B SURFACE AG NON-REACT JEFF Non-react jeff 11/20/2024 4:11 PM CDT [facility] Comment:A non-reactive test result does not exclude the possibility of exposure to or infection with hepatitis B. Blood Venipuncture / Unknown 11/20/2024 3:10 PM CDT 11/20/2024 3:20 PM CDT Kate Aleman MD CHEMISTRY ORDERABLES Final Resu lt [facility] SERVICES - [facility] CLIA# [id number] [address] [place] [address] * (ABNORMAL) HEPATIC FUNCTION PANEL (11/20/2024 8:47 AM CDT) [facility] TOTAL PROTEIN 7.9 6.7 - 8.6 g/dL 11/20/2024 10:09 AM T [facility] - [facility] [place] ALBUMIN 2.6(L) 3.5 - 5.2 g/dL 11/20/2024 10:09 AM T [facility] - [facility] [place] BILIRUBIN TOTAL 0.2 0.0 - 1.1 mg/dL 11/20/2024 10:09 AM ON LICENSE OF [facility]ATORY SERVICES - . [place] BILIRUBIN DIRECT <0.2 <0.4 mg/dL 11/21/19 10:09 AM ON LICENSE OF [facility] SERVICES - [facility] [place] ALKALINE PHOSPHATASE 95 35 - 104 U/L 11/20/2024 10:09 AM T [facility] - [facility] [place] AST 20 <33 U/L 11/20/2024 10:09 AM T [facility] - [facility] [place] ALT 19 <34 U/L 11/20/2024 10:09 AM ON LICENSE OF [facility] [place] Blood Venipuncture / Unknown 11/20/2024 8:47 AM CDT 11/20/2024 9:12 AM CDT [facility] LABORATORY SERVICES - [facility] [place] - 11/20/2024 10:09 AM CDT Samples containing indocyanine green cause interferences on Total and/or Direct Bilirubin and must not be measured. Alban WATSON CHEMISTRY ORDERABLES Final Resul t [facility] - [facility] CLIA# [id number] [address] [place] [address] * CT HEAD WO CONTRAST (11/18/2024 12:56 PM CDT) Anatomical Region Laterality Modality Head Computed Tomogra phy 11/18/2024 12:5 6 PM CDT Impressions 11/18/2024 1:02 PM CDT IMPRESSION: 1. No acute intracranial process. DICTATION LOCATION: Location 1 - [facility] 11/18/2024 1:02 PM CDT EXAMINATION: CT HEAD [...] intracranial process. DICTATION LOCATION: Location 1 - [facility] Alban WATSON CT ORDERABLES Final Result * TSH REFLEXIVE (11/18/2024 3:21 AM CDT) Pathologist [facility] TSH 3.32 0.27 - 4.20 uIU/mL 11/18/2024 3:25 PM CDT [facility] - [facility] Blood Venipuncture / Unknown 11/18/2024 3:21 AM CDT 11/18/2024 3:35 AM CDT Dee Dee Echols PA-C CHEMISTRY ORDERABLES Final Result [facility] CLIA# [id number] [address] [facility] [place] [address] * (ABNORMAL) URINALYSIS WITH REFLEX MICROSCOPIC (11/17/2024 6:14 PM CDT) COLOR UA Yellow Pale to Dark Yellow 11/17/2024 7:01 PM T [facility] SERVICES - [facility] CLARITY UA Clear Clear 11/17/2024 7:01 PM T [facility] SERVICES - [facility] SPECIFIC GRAVITY UA 1.016 1.003 - 1.035 11/17/2024 7:01 PM T [facility] PH UA 6.0 5.0 - 8.0 11/17/2024 7:01 PM T [facility] SERVICES - [facility] LEUKOCYTE ESTERASE UA Trace(A) Negative 11/17/2024 7:01 PM T [facility] NITRITE UA Negative Negative 11/17/2024 7:01 PM T [facility] PROTEIN UA 1+(A) Negative 11/17/2024 7:01 PM ON LICENSE OF [facility] GLUCOSE UA Negative Negative 11/17/2024 7:01 PM CDT [facility] KETONES UA Negative Negative 11/17/2024 7:01 PM T [facility] UROBILINOGEN UA Normal <2.0 mg/dL 7:01 PM T [facility] BILIRUBIN UA Negative Negative 11/17/2024 7:01 PM CDT [facility] BLOOD UA Negative Negative 11/17/2024 7:01 PM T [facility] Comment:Ascorbic acid may ca use false negative results for blood. A microscopic review was reflexed to rule out this interference. WBC UA 11-25(A) 0 - 2 /hpf 11/17/2024 7:01 PM [facility] RBC UA 0-2 0 - 2 /hpf 11/17/2024 7:01 PM [facility] BACTERIA UA 1+(A) Negative /hpf 11/17/2024 7:01 PM [facility] EPITHELIAL CELLS, URINE 0-5 0 - 5 /hpf 11/17/2024 7:01 PM T [facility] Ascorbic Acid UA Positive(A) Negative 025 7:01 PM [facility] Urine URINE SPECIMEN OBTAINED BY CLEAN CATCH PROCEDURE / Unknown Collection / Unknown 11/17/2024 6:14 PM CDT 11/17/2024 6:31 PM CDT Elsi Nur INSTRUCTOR KNITTING URINE ORDERABLES Final Res ult [facility] CLIA# [id number] [address] [place] [address] * URINE CULTURE (11/17/2024 6:14 PM CDT) CULTURE Polymicrobial growth consistent with normal urethral segundo and/or colonizing bacteria 11/19/2024 6:41 AM CDT [facility] Urine URINE SPECIMEN OBTAINED BY CLEAN CATCH PROCEDURE / Unknown Collection / Unknown 11/17/2024 6:14 PM CDT 11/17/2024 6:31 PM CDT Dee Dee Echols PA-C MICROBIOLOGY - GENERAL ORD ERABLES Final Result Performing Organization Address [facility]/ZIP Co de Phone Number [facility]# [id number] [address] [place] [address] * (ABNORMAL) OCCULT BLOOD GUAIAC DIAGNOSTIC (11/17/2024 1:26 PM CDT) OCCULT BLOOD, STOOL Positive(A ) Negative 11/17/2024 2:14 PM CDT [facility] Stool STOOL SPECIMEN / Unknown Collection / Unknown 11/17/2024 1:26 PM CDT 11/17/2024 1:30 PM CDT Elsi Nur INSTRUCTOR KNITTING BODY FLUIDS AND STOOLS Fin al Result Performing Organization Address [facility] Co de Phone Number [facility]# [id number] [address] [place] [address] * (ABNORMAL) BRAIN NATRIURETIC PEPTIDE, BNP OR PROBNP (11/17/2024 12:13 PM CDT) PROBNP, N TERMINAL 22,930(H) <449 pg/mL 11/17/2024 1:06 PM CDT [facility] Comment: INTERPRETIVE COMMENT based on diagnosis: [...] CDT 11/17/2024 12:22 PM CDT Elsi Nur INSTRUCTOR KNITTING CHEMISTRY ORDERABLES Final Result [facility]# [id number] [address] [place] [address] * AMMONIA LEVEL (11/17/2024 12:07 PM CDT) AMMONIA 40.1 11.0 - 51.0 umol/L 11/17/2024 12:48 PM CDT [facility] Blood, venous Venipuncture / Unknown 11/17/2024 12:07 PM CDT 11/17/2024 12:22 PM CDT Elsi Nur INSTRUCTOR KNITTING CHEMISTRY ORDERABLES Final Result Performing Organization Address City/[facility]/ZIP Co de Phone Number [facility]# [id number] [facility] [place] [address] [place] [address] * (ABNORMAL) BASIC METABOLIC PANEL PLUS (ADD ON CMP TO BMP) (11/16/2024 5:09 AM CDT) TOTAL PROTEIN 7.1 6.7 - 8.6 g/dL 11/16/2024 10:33 AM CDT [facility] ALBUMIN 2.3(L) 3.5 - 5.2 g/dL 11/16/2024 10:33 AM CDT [facility]ORY SERVICES [facility] BILIRUBIN TOTAL <0.2 0.0 - 1.1 mg/dL 11/16/2024 10:33 AM CDT [facility] ALKALINE PHOSPHATASE 84 35 - 104 U/L 11/16/2024 10:33 AM CDT [facility] SERVICES [facility] AST 23 <33 U/L 11/16/2024 10:33 AM CDT [facility] ALT 19 <34 U/L 11/16/2024 10:33 AM CDT [facility] Blood Capillary / Unknown 11/16/2024 5:09 AM CDT 11/16/2024 5:13 AM CDT Narrative [facility] - 11/16/2024 10:33 AM CDT Samples containing indocyanine green cause interferences on Total and/or Direct Bilirubin and must not be measured. Yue Pepe MD CHEMISTRY ORDERABLES Final Result Performing Organization Address City/[facility]/ZIP Co de Phone Number [facility] CLUT# [id number] [address] [place] [address] * PHOSPHORUS (11/15/2024 5:42 AM CDT) Only the most recent of25 resultswithin the time period is included. PHOSPHORUS 2.6 2.5 - 4.5 mg/dL 11/15/2024 6:40 AM CDT [facility] Blood Capillary / Unknown 11/15/2024 5:42 AM CDT 11/15/2024 5:48 AM CDT Yue Pepe MD CHEMISTRY ORDERABLES Final Result Performing Organization Address City/[facility]/ZIP Co de Phone Number [facility]# [id number] [address] [place] [address] [place] [address] * MAGNESIUM LEVEL (11/15/2024 5:42 AM CDT) Only the most recent of24 resultswithin the time period is included. MAGNESIUM 2.1 1.6 - 2.4 mg/dL 11/15/2024 6:40 AM CDT [facility] Blood Capillary / Unknown 11/15/2024 5:42 AM CDT 11/15/2024 5:48 AM CDT Yue Pepe MD CHEMISTRY ORDERABLES Final Result Performing Organization Address [facility] Co de Phone Number [facility] CLIA# [id number] [address] [place] [address] * (ABNORMAL) CALCIUM IONIZED (11/15/2024 5:42 AM CDT) Only the most recent of20 resultswithin the time period is included. PH, VENOUS 7.30(L) 7.32 - 7.43 11/15/2024 5:59 AM CDT [facility] CALCIUM IONIZED 4.8 4.8 - 5.2 mg/dL 11/15/2024 5:59 AM CDT [facility] Blood Capillary / Unknown 11/15/2024 5:42 AM CDT 11/15/2024 5:48 AM CDT Yue Pepe MD CHEMISTRY ORDERABLES Final Result Performing Organization Address City/[facility] Co de Phone Number [facility] CLIA# [id number] [facility] [place] [address] [place] [address] * (ABNORMAL) RESPIRATORY CULTURE WITH GRAM STAIN (11/11/2024 10:59 AM CDT) CULTURE PSEUDOMONAS AERUGINOSA(A) TEA MCG/ML 11/13/2024 7:48 AM CDT [facility] Comment:Susceptibility on pr evious culture. CULTURE Absent Normal Segundo TEA MCG/ML 11/13/2024 7:48 AM CDT [facility] GRAM STAIN Non diagnostic pattern 11/13/2024 7:48 AM CDT [facility] GRAM STAIN 4+ (Heavy) Polymorphonuclear WBC 11/13/2024 7:48 AM CDT [facility] Washings (Other, specify) Collection / Unknown 11/11/2024 10:59 AM CDT 11/11/2024 11:21 AM CDT Sera Hair DNP MICROBIOLOGY - GENERAL OR DERABLES Final Result Performing Organization Address [facility] Co de Phone Number [facility] CLIA# [id number] [address] [facility] [place] [address] * (ABNORMAL) HEMOGLOBIN AND HEMATOCRIT (11/10/2024 10:51 PM CDT) HEMOGLOBIN 7.1(L) 11.8 - 14.8 g/dL 11/10/2024 11:03 PM CDT [facility] HEMATOCRIT 22.8(L) 35.5 - 44.0 % 11/10/2024 11:03 PM CDT [facility] Blood Venipuncture / Unknown 11/10/2024 10:51 PM CDT 11/10/2024 10:56 PM CDT Reina Xavier INSTRUCTOR KNITTING HEMATOLOGY ORDERABLES Final Result Performing Organization Address [facility] Co de Phone Number [facility]# [id number] [address] [facility] [place] [address] * (ABNORMAL) SPUTUM CULTURE WITH GRAM STAIN (11/10/2024 12:35 PM CDT) Only the most recent of2 resultswithin the time period is included. CULTURE HAEMOPHILUS INFLUENZAE(A) TEA MCG/ML 11/12/2024 9:26 AM CDT [facility] Comment:This Haemophilus inf luenzae is beta-lactamase positive, indicating probable resistance to penicillin or ampicillin. For serious infections use ceftriaxone. BETA LACTAMASE Positive 11/12/2024 9:26 AM CDT [facility] CULTURE PSEUDOMONAS AERUGINOSA(A) TEA MCG/ML 11/12/2024 9:26 AM CDT [facility] CULTURE Absent Normal Segundo TEA MCG/ML 11/12/2024 9:26 AM CDT [facility] GRAM STAIN Non diagnostic pattern 11/12/2024 9:26 AM CDT [facility] GRAM STAIN 4+ (Heavy) Polymorphonuclear WBC 11/12/2024 9:26 AM CDT [facility] Sputum SPUTUM SPECIMEN OBTAINED BY ASPIRATION [...] MICROBIOLOGY - GENERAL ORD ERABLES Final Result [facility]# [id number] [address] [facility] [place] [address] * POC LACTIC ACID (11/10/2024 9:40 AM CDT) Only the most recent of6 resultswithin the time period is included. LACTIC ACID POC 1.0 <=2.0 mmol/L 11/10/2024 9:40 AM CDT [facility] SPECIMEN SOURCE, GASES POC Arterial 11/10/2024 9:40 AM CDT [facility] COMMENT, GASES POC Responsible Clinical Caregiver notified 11/10/2024 9:40 AM CDT [facility] Blood 11/10/2024 9:4 0 AM CDT 11/10/2024 9:41 AM CDT Yue Pepe MD POINT OF CARE TESTING Final Result [id number] [address] [place] [address] * (ABNORMAL) BLOOD GAS,(INCL. H+H, LYTES, GLUC) (11/10/2024 9:40 AM CDT) Only the most recent of6 resultswithin the time period is included. [facility] PH BLOOD POC 7.41 7.35 - 7.45 11/10/2024 9:40 AM T [facility] PCO2 POC 44 35 - 48 mm Hg 11/10/2024 9:40 AM ON LICENSE OF [facility] PO2 POC 210(H) 83 - 108 mm Hg 11/10/2024 9:40 AM ON LICENSE OF [facility] TCO2 (CALC) POC 29(H) 19 - 24 mmol/L 11/10/2024 9:40 AM T [facility] HCO3 (CALC) POC 28(H) 22 - 26 mmol/L 11/10/2024 9:40 AM T [facility] O2 SATURATION POC 99(H) 94 - 98 % 11/10/2024 9:40 AM ON LICENSE OF [facility] BASE EXCESS POC 3 -2 - 3 mmol/L 11/10/2024 9:40 AM ON LICENSE OF [facility] HEMOGLOBIN POC 7.2(L) 11.8 - 14.8 g/dL 11/10/2024 9:40 AM T [facility] HEMATOCRIT POC 22(L) 36 - 44 % 11/10/2024 9:40 AM ON LICENSE OF [facility] Comment:Estimated Value GLUCOSE POC 92 74 - 99 mg/dL 11/10/2024 9:40 AM ON LICENSE OF [facility] SODIUM POC 140 136 - 145 mmol/L 11/10/2024 9:40 AM [facility] [employer] [facility]ORAT[facility] POTASSIUM POC 3.4(L) 3.5 - 5.0 mmol/L 11/10/2024 9:40 AM [facility] CHLORIDE POC 109(H) 98 - 107 mmol/L 11/10/2024 9:40 AM T [facility] CALCIUM IONIZED POC 4.4(L) 4.7 - 5.1 mg/dL 11/10/2024 9:40 AM T [facility] PH TEMP CORRECT 7.41 7.35 - 7.45 11/10/2024 9:40 AM T [facility] PCO2 TEMP CORRECT 44 35 - 48 mm Hg 11/10/2024 9:40 AM T [facility] PO2 TEMP CORRECT 210(H) 83 - 108 mm Hg 11/10/2024 9:40 AM T [facility] SPECIMEN SOURCE, GASES POC Arterial 11/10/2024 9:40 AM [facility] PATIENT'S TEMPERATURE POC 37.0 degrees 11/10/2024 9:40 AM [facility] COMMENT, GASES POC Responsible Clinical Caregiver notified 11/10/2024 9:40 AM [facility] Blood, arterial 11/10/2024 9 :40 AM CDT 11/10/2024 9:41 AM CDT us Yue Pepe MD ABG ORDERABLES Final Resul t [facility]# [id number] [address] [place] [address] [place] [address] * [place] ANES INSERT ENDOTRACHEAL AIRWAY (11/10/2024 7:41 AM CDT) Narrative Lucas Kowalski AA-C - 11/10/2024 7:41 AM CDT Lucas Kowalski AA-C 11/10/2024 8:50 AM Airway Date/Time: 11/10/2024 7:41 AM Location: OR Plan: elective intubation Patient Identity Confirmed by: Verbally with patient and armband Airway: not difficult Staffing Performed: Student NA/AA Authorized by: Oleg Garsia MD Performed by: Lucas Kowalski AA-C Assistant Manager Retail: Lucas Kowalski AA-C Indications and Patient Condition: [...] Additional Comments: Intubation performed by Hector SIMPSON. us Oleg Garsia MD PROCEDURE/MINOR SURGICAL ORDE HEATH Final Result * (ABNORMAL) COMPREHENSIVE METABOLIC PANEL (11/08/2024 11:03 AM CDT) Only the most recent of2 resultswithin the time period is included. SODIUM 148(H) 136 - 145 mmol/L 11/08/2024 12:04 PM ON LICENSE OF [facility] POTASSIUM 3.7 3.5 - 5.0 mmol/L 11/08/2024 12:04 PM ON LICENSE OF [facility] CHLORIDE 110(H) 98 - 107 mmol/L 11/08/2024 12:04 PM ON LICENSE OF [facility] CO2 27 22 - 29 mmol/L 11/08/2024 12:04 PM ON LICENSE OF [facility] CALCIUM 8.1(L) 8.6 - 10.2 mg/dL 11/08/2024 12:04 PM ON LICENSE OF [facility] BUN 64(H) 8 - 23 mg/dL 11/08/2024 12:04 PM [facility] CREATININE 1.34(H) 0.51 - 0.95 mg/dL 11/08/2024 12:04 PM [facility] Comment:The GFR result is no t clinically significant on patients <18 or >70 years of age. GLUCOSE 126(H) 74 - 99 mg/dL 11/08/2024 12:04 PM [facility] TOTAL PROTEIN 7.0 6.7 - 8.6 g/dL 11/08/2024 12:04 PM [facility] ALBUMIN 2.2(L) 3.5 - 5.2 g/dL 11/08/2024 12:04 PM [facility] BILIRUBIN TOTAL 0.2 0.0 - 1.1 mg/dL 11/08/2024 12:04 PM [facility] ALKALINE PHOSPHATASE 112(H) 35 - 104 U/L 11/08/2024 12:04 PM [facility] AST 29 <33 U/L 11/08/2024 12:04 PM [facility] ALT 19 <34 U/L 11/08/2024 12:04 PM [facility] GFR 41 mL/min/1.7 3 sq meter 11/08/2024 12:04 PM [facility] Comment:eGFR calculated with 2020 CKD-EPI equation. Vegetarian diet, extremely high or low muscle mass, and may affect results. Cystatin C with Glomerular Filtration Rate is a suitable alternative for these patients. ANION GAP 11 8 - 16 mmol/L 11/08/2024 12:04 PM [facility] Blood Venipuncture / Unknown 11/08/2024 11:03 AM CDT 11/08/2024 11:07 AM [facility] - 11/08/2024 12:04 PM [facility] Samples containing indocyanine green cause interferences on Total and/or Direct Bilirubin and must not be measured. us Chi Valentine MD CHEMISTRY ORDERABLES Final Re sult [facility] CLIA# [id number] [address] [place] [address] * XR ABDOMEN FOR FEEDING TUBE 1 VW (11/01/2024 11:25 AM CDT) Only the most recent of14 resultswithin the time period is included. Anatomical Region Laterality Modality Abdomen Computed Radiogr aphy 11/01/2024 11:2 5 AM CDT Impressions 11/01/2024 11:30 AM CDT IMPRESSION: An enteric tube courses through the stomach terminating at the pylorus. DICTATION LOCATION: [address] Narrative 11/01/2024 11:30 AM CDT EXAMINATION: XR [...] stomach terminating at the pylorus. DICTATION LOCATION: [address] us Petr Treviño MD DIAGNOSTIC IMAGING ORDERABLE S Final Result * UPPER ENDOSCOPY REPORT (10/31/2024 2:39 PM CDT) Narrative Procedure Note Elfego Bay MD - 10/31/2024 2:39 PM CDT [facility] Endoscopy Patient Name: Lynette Lyle Procedure Date: [...] Number of Addenda: [address]; [place] [address] Elfego Bay MD GI PROCEDURE ORDERABLES Final Re sult * (ABNORMAL) BLOOD GAS VENOUS (10/28/2024 7:11 PM CDT) PH, VENOUS 7.31(L) 7.32 - 7.43 10/28/2024 7:49 PM CDT [facility] - [facility] PCO2 VENOUS 49 38 - 50 mm Hg 10/28/2024 7:49 PM CDT [facility] LAB[facility] - . [facility] PO2 VENOUS 37 25 - 40 mm Hg 10/28/2024 7:49 PM CDT [facility] - . [facility] HCO3 VENOUS 24 22 - 29 mmol/L 7:49 PM CDT [facility] - [facility] BASE EXCESS VENOUS -1.6 Reference Range Not Established mmol/L 10/28/2024 7:49 PM CDT [facility] - [facility] HEMOGLOBIN VENOUS 9.4 No Ref Range Estab g/dL 10/28/2024 7:49 PM CDT [facility]AT[facility] O2 SAT EST VENOUS 68 40 - 70 % 10/28/2024 7:49 PM CDT [facility] OXYGEN MODE Venturi Mask 10/28/2024 7:49 PM CDT [facility] FIO2 40.0 21.0 - 100.0 % 10/28/2024 7:49 PM CDT [facility] LAB[facility]ATORY [facility] Blood, venous Venipuncture / Unknown 10/28/2024 7:11 PM CDT 10/28/2024 7:45 PM CDT Alban WATSON ABG ORDERABLES Final Result [facility]# [id number] [address] [place], [place] [id number] * IR VENOUS ACCESS (10/28/2024 2:41 PM CDT) Narrative 10/28/2024 2:41 PM CDT Order information only. Exam was auto-finalized. Alban MEEKS ORDERABLES Final Result * ECHO COMPLETE - CONTRAST AND STRAIN IF INDICATED (10/28/2024 11:13 AM CDT) EJECTION FRACTION 60 INTERFACE SYSTEM 10/28/2024 10:4 5 AM CDT Narrative INTERFACE SYSTEM - 10/28/2024 11:16 AM CDT [facility] [address] [place] [address] [email or web address] Transthoracic Echocardiogram Patient: Lynette Lyle Study ID: ECHO COMPLETE - Gender: F : 1950 Age: 74 Race: CAU Height 160cm Study Date: 10/28/2024 Weight: 77.3kg Access. #: [id number] BP: *Referring Physician:* Chi Valentine *Ordering Physician:* Chi Valentine repairer veneer sheet: Nurse: STUDY CONCLUSIONS: SUMMARY: - Left ventricle: [...] AM. Prepared and Electronically Authenticated Lonny Mckinley [id number] Procedure Note Lonny Mckinley MD - 10/28/[address] [address] [email or web address] Transthoracic Echocardiogram Patient: Lynette Lyle Study ID: ECHO COMPLETE - Gender: F : 1950 Age: 74 Race: CAU Height 160cm Study Date: 10/28/2024 Weight: 77.3kg Access. #: [id number] BP: *Referring Physician:* Chi Valentine *Ordering Physician:* Chi Valentine repairer veneer sheet: Nurse: STUDY CONCLUSIONS: SUMMARY: - Left ventricle: [...] AM. Prepared and Electronically Authenticated Lonny Mckinley [id number]:15 us Chi Valentine MD US ORDERABLES Final Result Performing Organization Address [facility] Phone Number INTERFACE SYSTEM Refer to clinic/hospital department * EXTRA TUBE (GREEN) (10/26/2024 8:10 PM CDT) Blood Venipuncture / Unknown 10/26/2024 8:10 PM CDT 10/26/2024 8:18 PM CDT Trent Vizcaino MD CHEMISTRY ORDERAB LES Final Result Performing Organization Address [facility] Co de Phone Number [facility] [id number] [address] [place] [address] * EXTRA TUBE (LAV) (10/26/2024 8:10 PM CDT) Blood Venipuncture / Unknown 10/26/2024 8:10 PM CDT 10/26/2024 8:18 PM CDT Trent Vizcaino MD HEMATOLOGY ORDERA BLES Final Result Performing Organization Address [facility] Co de Phone Number [facility] CLIA# [id number] [address] [place] [address] * EXTRA TUBE (RED) (10/26/2024 8:10 PM CDT) Blood Venipuncture / Unknown 10/26/2024 8:10 PM CDT 10/26/2024 8:18 PM CDT Trent Vizcaino MD CHEMISTRY ORDERAB LES Final Result [facility] CLIA# [id number] [address] [place] [address] * EXTRA TUBE (BLUE) (10/26/2024 8:10 PM CDT) Blood Venipuncture / Unknown 10/26/2024 8:10 PM CDT 10/26/2024 8:18 PM CDT us Trent Vizcaino MD HEMATOLOGY ORDERA BLES Final Result Performing Organization Address City/[facility]/ZIP Co de Phone Number [facility] CLIA# [id number] [address] [place] [address] * EXTRA TUBE (SST/GOLD) (10/26/2024 8:10 PM CDT) Blood Venipuncture / Unknown 10/26/2024 8:10 PM CDT 10/26/2024 8:18 PM CDT us Trent Vizcaino MD CHEMISTRY ORDERAB LES Final Result Performing Organization Address City/[facility]/ZIP Co de Phone Number [facility] CLIA# [id number] [address] [place] [address] * EXTRA TUBE (PINK) (10/26/2024 8:10 PM CDT) Blood Venipuncture / Unknown 10/26/2024 8:10 PM CDT 10/26/2024 8:18 PM CDT Trent Vizcaino MD CHEMISTRY ORDERAB LES Final Result Performing Organization Address [facility]/ZIP Co de Phone Number [facility]# [id number] [address] [place] [address] * EXTRA TUBE (CRAIG) (10/26/2024 8:10 PM CDT) Blood Venipuncture / Unknown 10/26/2024 8:10 PM CDT 10/26/2024 8:18 PM CDT Trent Vizcanio MD CHEMISTRY ORDERAB LES Final Result Performing Organization Address [facility] Co de Phone Number [facility] CLIA# [id number] [address] [place] [address] * EXTRA TUBE (GREEN NO GEL) (10/26/2024 8:10 PM CDT) Blood Venipuncture / Unknown 10/26/2024 8:10 PM CDT 10/26/2024 8:19 PM CDT Trent Vizcaino MD CHEMISTRY ORDERAB LES Final Result Performing Organization Address [facility] de Phone Number [facility]# [id number] [address] [place] [address] * CARBOXYHEMOGLOBIN (10/25/2024 10:19 PM CDT) Only the most recent of4 resultswithin the time period is included. [facility] CARBOXYHEMOGLOBIN 2.4 <=7.0 % 025 10:33 PM CDT [facility] Comment: Reference Range: Non-Smokers: 0-2% Smokers: < or = 9% Toxic: > 15% HEMOGLOBIN ABG 12.3 11.8 - 14.8 g/dL 10/25/2024 10:33 PM CDT [facility] Blood Venipuncture / Unknown 10/25/2024 10:19 PM CDT 10/25/2024 10:28 PM CDT Kirk Olesn PA-C ABG ORDERABLES Final Resul t [facility]# [id number] [address] [place] [address] * LACTIC ACID (10/25/2024 1:35 AM CDT) LACTIC ACID 1.3 <=2.0 mmol/L 10/25/2024 2:10 AM CDT [facility] Blood Venipuncture / Unknown 10/25/2024 1:35 AM CDT 10/25/2024 1:48 AM CDT Kirk Olsen PA-C CHEMISTRY ORDERABLES Final Result Performing Organization Address City/[facility]/ZIP Co de Phone Number [facility]# [id number] [facility] [place] [place] [address] * (ABNORMAL) OXIMETRY (10/24/2024 10:03 PM CDT) Only the most recent of2 resultswithin the time period is included. OXYHEMOGLOBIN POC 89.5(L) 94.0 - 97.0 % 10/24/2024 10:03 PM CDT [facility] HEMOGLOBIN POC 12.4 11.8 - 14.8 g/dL 10/24/2024 10:03 PM CDT [facility] O2 SATURATION POC 100(H) 40 - 70 % 10/24/2024 10:03 PM CDT [facility] SPECIMEN SOURCE, GASES POC Venous 10/24/2024 10:03 PM T [facility] SAMPLE SITE, GASES POC N-SY 10/24/2024 10:03 PM CDT [facility] LABORATORY [facility] COMMENT, GASES POC Responsible Clinical Caregiver notified 10/24/2024 10:03 PM CDT [facility] Blood 10/24/2024 10:0 3 PM CDT 10/24/2024 10:05 PM CDT Trent Vizcaino MD ABG ORDERABLES F inal Result [facility] CLIA# [id number] [address] [place] [address] * (ABNORMAL) METHEMOGLOBIN QUANTITATIVE (10/24/2024 10:03 PM CDT) Only the most recent of2 resultswithin the time period is included. METHEMOGLOBIN QUANT POC 1.6(H) <1.5 % 10/24/2024 10:03 PM CDT [facility] HEMOGLOBIN POC 12.4 11.8 - 14.8 g/dL 10/24/2024 10:03 PM CDT [facility] LAB[facility]AT[facility] COMMENT, GASES POC Responsible Clinical Caregiver notified 10/24/2024 10:03 PM CDT [facility] Blood 10/24/2024 10:0 3 PM CDT 10/24/2024 10:05 PM CDT Trent Vizcaino MD ABG ORDERABLES F inal Result Performing Organization Address City/[facility]/ZIP Co de Phone Number [facility] CLIA# [id number] [address] [place] [address] * VERIFICATION BLOOD GROUP (10/24/2024 9:42 PM CDT) ABO GROUP O 10/24/2024 10:23 PM CDT [facility] LABORATORY [facility] RH (D) TYPE Positive 10/24/2024 10:23 PM CDT [facility]ORATORY SERVICES -- [facility] Blood Venipuncture / Unknown 10/24/2024 9:42 PM CDT 10/24/2024 9:44 PM CDT Delfin Landin MD BLOOD BANK ORDERABLES Final Result [facility] [id number] [address] [facility] [place] [address] * (ABNORMAL) DRUG SCREEN, URINE (10/24/2024 9:29 PM CDT) [facility] AMPHETAMINE QUAL, URINE Negative Negative 10/24/2024 10:15 PM CDT [facility] - [facility] BARBITURATE QUAL, URINE Negative Negative 10/24/2024 10:15 PM CDT [facility] - [facility] BENZODIAZEPINE QUAL, URINE Presumptive Positive(A) Negative 10/24/2024 10:15 PM CDT [facility] - [facility] COCAINE QUAL URINE Negative Negative 10/24/2024 10:15 PM CDT [facility] - [facility] OPIATE QUAL, URINE Negative Negative 10/24/2024 10:15 PM CDT [facility] - [facility] CANNABINOIDS QUAL, URINE Negative Negative 10/24/2024 10:15 PM CDT [facility] - [facility] PCP QUAL, URINE Negative Negative 10:15 PM CDT [facility] - [facility] OXYCODONE QUAL, URINE Negative Negative 10/24/2024 10:15 PM CDT [facility] - [facility] METHADONE QUAL, URINE Negative Negative 10/24/2024 10:15 PM CDT [facility] - [facility] FENTANYL QUAL, URINE Presumptive Positive(A) Negative 10/24/2024 10:15 PM CDT [facility] - [facility] CREATININE, URINE 85.4 29.0 - 226.0 mg/dL 10/24/2024 10:15 PM CDT [facility] - [facility] Comment:Reference Range vari es with fluid intake and diet. Urine (Urine, indwelling (Mccollum) catheter) Collection / Unknown 10/24/2024 9:29 PM CDT 10/24/2024 9:31 PM CDT [facility] - 10/24/2024 10:15 PM CDT This [...] Negative 25 ng/mL Fentanyl Negative 5 ng/mL Trent Vizcaino MD URINE ORDERABLES Final Result [facility]# [id number] [address] [place] [address] * PROTIME-INR (10/24/2024 9:18 PM CDT) PROTIME 14.2 12.7 - 15.1 Seconds 10/24/2024 9:49 PM CDT [facility] INR 1.1 0.9 - 1.1 10/24/2024 9:49 PM CDT [facility] Blood Venipuncture / Unknown 10/24/2024 9:18 PM CDT 10/24/2024 9:20 PM CDT [facility] - 10/24/2024 9:49 PM CDT INR Therapeutic Range: Adult: 2.0 - 3.0 for pulmonary embolism or prophylaxis against venous thrombosis or systemic embolization. 2.0 - 3.0 for patients with tissue heart valves. 2.5 - 3.5 for patients with mechanical heart valves or post [place]. Pediatric (12 years and under): 1.5 - 3.0 Although the target range in children is not well established, INR values of 1.5 - 3.0 are recommended for most patients. Higher values have been used in children with prosthetic cardiac valves and hereditary clotting disorders. Dixie (<3 days) therapeutic ranges have not been established. Trent Vizcaino MD HEMATOLOGY ORDERA BLES Final Result Performing Organization Address [facility]/ZIP Co de Phone Number [facility]# [id number] [address] [place] [address] * FIBRINOGEN QUANTITATIVE (10/24/2024 9:18 PM CDT) FIBRINOGEN 322 205 - 450 mg/dL 10/24/2024 9:49 PM CDT [facility] LAB[facility]AT[facility] Blood Venipuncture / Unknown 10/24/2024 9:18 PM CDT 10/24/2024 9:20 PM CDT Trent Vizcaino MD HEMATOLOGY ORDERA BLES Final Result Performing Organization Address [facility] Co de Phone Number [facility]# [id number] [address] [place] [address] * ETHANOL LEVEL (10/24/2024 9:18 PM CDT) ETHANOL <10.10 <10.10 mg/dL 10/24/2024 10:09 PM CDT [facility] LAB[facility] ETHANOL % <0.01 %w/v 10/24/2024 10:09 PM CDT [facility] Blood Venipuncture / Unknown 10/24/2024 9:18 PM CDT 10/24/2024 9:30 PM CDT Result [facility] Trent Vizcaino MD CHEMISTRY ORDERAB LES Final Result Performing Organization Address [facility]/ZIP Co de Phone Number [facility]# [id number] [address] [place] [address] * Critical Care (10/24/2024 8:46 PM CDT) [...] response to treatment and examination of patient Trent Vizcaino MD PROCEDURE/MINOR S URGICAL ORDERABLES Final Result from Last 3 Months Additional Health Concerns Infection Onset Date Last Indicated Multi Drug Resistant Organism (MDRO) 11/18/2024 11/18/2024 [place] [address] Advance Directives For more information, please contact: [phone] * Full Code (Latest Code Status on File) Date Activated Date Inactivated Comments 10/24/2024 10:57 PM 12/04/2024 6:20 PM Care Teams Land Clearer Relationship Specialty Start Date End Date Christian Forte MD [address] [facility] [address] [place] [phone] PCP - General 03/13/18
--- OUTSIDE RECORDS SUMMARY | 2025-01-23 14:19 | XMS_ITS | Encounter Summary ---
Author Organization [facility] Address [address] [place] [address] Care Team Providers Care Planner Internship Name Role Phone Christian Forte MD Primary Care Provider Encounter Details Date Type Department Care Team (Late st Contact Info) Description 01/21/2025 External Device Data [facility] ABSTRACTION Provider, Abstract NO ADDRESS ON FILE Social History Tobacco Use Types Packs/Day Years Used Date Smoking Tobacco: Former Cigarettes 0.3 3 1 968 - 1970 Smokeless Tobacco: Never Comments Unknown Sex and Gender Information Value Date Recorded Sex Assigned at Not on file Legal Sex Female 7:23 PM [employer] Gender Identity Not on file Sexual Orientation Not on file documented as of this encounter Plan of Treatment Upcoming Encounters Date Type Department Care Team (Late st Contact Info) Description 01/28/2025 10:45 AM CDT Office Visit [facility] [address] [address] Petr Treviño MD [address] [facility] [address] [place] [address] documented as of this encounter Visit Diagnoses Not on filedocumented in this encounter Additional Health Concerns Infection Onset Date Last Indicated Resolved Time Multi Drug Resistant Organism (MDRO) 11/18/202411/06 documented as of this encounter Care Teams Planner Internship Relationship Specialty Start Date End Date Christian Forte MD [address] [place] [address] PCP - General 03/13/18 documented as of this encounter
--- OUTSIDE RECORDS SUMMARY | 2025-01-23 14:19 | XMS_ITS | Clinical Summary ---
Author Organization [facility] [employer] Address [address] [place] [address] Care Team Providers Care Electric Motor Repairing Supervisor Name Role Phone KianaJm cheng Primary Care Provider [phone] [facility] [employer],non-owned Affiliates and Associated Physician Practices is amultiple site organization consisting of ambulatory clinics and hospital sitesin [place], [place], [place] and [place]. This disclosure is being madepursuant to the Care Everywhere program and may not contain all information available regarding this patient. Last updated 18.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 Glucose 93 70 - 105 mg/dL 03/04/2023 3:35 PM CDT [facility] Sodium 135(L) 136 - 145 mmol/L 03/04/2023 3:35 PM CDT [facility] Potassium 4.8 3.5 - 5.1 mmol/L 03/04/2023 3:35 PM CDT [facility] Chloride 105 98 - 107 mmol/L 03/04/2023 3:35 PM CDT [facility] CO2 21(L) 22 - 29 mmol/L 03/04/2023 3:35 PM CDT [facility] Calcium 9.1 8.4 - 10.4 mg/dL 03/04/2023 3:35 PM CDT [facility] Anion Gap 9 6 - 16 mmol/L 03/04/2023 3:35 PM CDT [facility] BUN 28(H) 7 - 26 mg/dL 03/04/2023 3:35 PM CDT [facility] Creatinine 1.10 0.57 - 1.11 mg/dL 03/04/2023 3:35 PM CDT [facility] Alkaline Phosphatase 81 40 - 150 U/L 03/04/2023 3:35 PM CDT [facility] ALT 15 0 - 55 U/L 03/04/2023 3:35 PM CDT [facility] AST 18 5 - 34 U/L 03/04/2023 3:35 PM CDT [facility] Protein Total 9.4(H) 6.4 - 8.3 gm/dL 03/04/2023 3:35 PM CDT [facility] Albumin 3.4 3.4 - 5.0 gm/dL 03/04/2023 3:35 PM CDT [facility] Bilirubin Total 0.4 0.2 - 1.2 mg/dL 03/04/2023 3:35 PM CDT [facility] eGFR by CKD-EPI 52(L) >=90 mL/min/1.7 3 m2 03/04/2023 3:35 PM CDT [facility] Blood BLOOD SPECIMEN / Unknown Venipuncture / Unknown 03/04/2023 3:05 PM CDT 03/04/2023 3:15 PM CDT us Dangelo Haywood MD LAB - CHEMISTRY ORDERABLES Final Result [facility] [address] [place] [address] from Last 3 Months or Most Recently Relevant to Health Maintenance Insurance [facility] MANAGED MEDICARE ADV ANTHEM Care Teams Electric Motor Repairing Supervisor Relationship Specialty Start Date End Date Jm Bruno DO [address] [place] [address] PCP - General Family Medicine 09/23/21
--- OUTSIDE RECORDS SUMMARY | 2025-01-23 14:19 | XMS_ITS | Clinical Summary ---
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 Gender Identity Not on file Sexual Orientation [...] 04/28/2021 Fall Risk Assessment 01/30/2023 01/30/2022, 04/28/20 Covid-19 Vaccine (5 2023-2 5 season) 2024 11/25/2021, 04/28/2021, 10/20/2020, Additional history exists DTaP/Tdap/Td Vaccine (2 - Td or Tdap) 11/18/2024 11/18/2014 Influenza Vaccine (#1) 2025 , 03/07/2020, 04/09/2019, Additional history exists Pneumococcal vaccine 65+ Completed 020, 05/13/2018, 11/18/2014, Additional history exists Medical Devices Implanted Type Area Senior International Tax Manager Device Identifier Shelf Expiration Date Model / Serial / Lot [employer] [place] R High Viscosity Cement 40gm Bone Green [id number] - [id number] Implanted:Qty: 1 on 01/18/2022 by Brent Russell MD at [facility] Right: Knee [employer] 12/07/2023 [id number] / / [id number] Mark [employer] Inc Persona Cemented Posterior Stabilize Knee Right 5 Standard [id number] - [id number] Implanted:Qty: 1 on 01/18/2022 by Brent Russell MD at [facility] Right: Knee [employer] [id number] 01/04/2031 [id number] / / [id number] Mark Us Inc [id number] Persona Cemented Stem Knee Right 5d C Baseplate Tibial Tivanium - [id number] Implanted:Qty: 1 on 01/18/2022 by Brent Russell MD at [facility] Right: Knee [employer] [id number] 02/28/2031 [id number] / / [id number] [employer] [id number] Persona 13mm Posterior Stabilized Knee Right 3-5 C-D Insert - [id number] Implanted:Qty: 1 on 01/18/2022 by Brent Russell MD at [facility] Right: Knee [employer] [id number] 05/10/2029 [id number] / / [id number] Synthes 3.5mm 6mm 34mm 2.5mm Self Tap Small Hexagonal Socket Low Profile 204.834 - [id number] Implanted:Qty: 1 on 01/18/2022 by Brent Russell MD at [facility] Right: Knee Synthes I 204.834 / / Synthes 3.5mm 6mm 28mm 2.5mm Self Tap Small Hexagonal Socket Low Profile 204.828 - [id number] Implanted:Qty: 1 on 01/18/2022 by Brent Russell MD at [facility] Right: Knee Synthes I 204.828 / / Synthes Lcp Combi [id number] 4 Hole Head 4 Hole Shaft Right Angle T 241.141 - [id number] Implanted:Qty: 1 on 01/18/2022 by Brent Russell MD at [facility] Right: Knee Synthes I 241.141 / / Insurance [facility] RE[facility] [place] [id number] [facility] REF [facility] RE[facility] Advance Directives For more information, please contact: [phone] * Full Code (Latest Code Status on File) Date Activated Date Inactivated Comments 01/26/2022 9:01 PM 01/30/2022 6:39 PM * Full Code Date Activated Date Inactivated Comments 01/18/2022 3:00 PM 01/22/2022 9:37 PM Care Teams Airport Planner Relationship Specialty Start Date End Date Evelyn Lopes DO [address] [facility] [address] [place] [address] PCP - General 01/30/22 Brent Russell MD Surgeon Orthopedic Surgery 01/18/22 Evelyn Lopes DO [address] [place] [address] Consulting Physician Family Medicine 01/30/22
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
[2025-01-23 16:40] LABS: Hematocrit 27.8 % (37.0-47.0); Hemoglobin 8.6 g/dL (12.0-15.0); Immature Granulocyte Percent A 0.2 % (0-0.5); Lymphocytes Absolute Auto 2.24 K/mm3 (0.9-3.2); Mean Corpuscular HGB Conc 30.9 g/dl (32-36); Mean Corpuscular Hemoglobin 29.8 pg (26-34); Mean Corpuscular Volume 96.2 fl (80-100); Nucleated Red Blood Cells Absolute Auto 0.000 K/mm3 (0.0-0.012); Nucleated Red Blood Cells Perc 0.0 % (0.0-0.2); Platelet Count Result 302 k/mm3 (150-375); Red Blood Count 2.89 M/mm3 (4.2-5.4); White Blood Count 5.8 K/mm3 (4.5-10.0)
[2025-01-23 16:57] LABS: INR 1.1; Partial Thromboplastin Time 30.4 Seconds (22.3-36.8); Prothrombin Time 14.2 Seconds (11.1-14.7)
[2025-01-23 17:04] LABS: Alanine Aminotransferase 15 U/L (6-35); Albumin Level 3.4 g/dL (3.5-5.1); Alkaline Phosphatase 89 U/L (38-126); Anion Gap 8 mmol/L (4-12); Aspartate Amino Transferase 28 U/L (14-36); Bilirubin,Total 0.3 mg/dL (0.2-1.3); Blood Urea Nitrogen 13 mg/dL (7-17); Calcium 8.1 mg/dL (8.4-10.2); Carbon Dioxide 24 mmol/L (22-30); Chloride 108 mmol/L (98-107); Estimated Glomerular Filt Rate 55; Glucose 97 mg/dL (65-110); Potassium 4.2 mmol/L (3.4-5.0); Sodium 140 mmol/L (137-145); Total Protein 8.7 g/dL (6.3-8.2)
[2025-01-23 17:08] LABS: NT Pro B Type Natriuretic Pept 3130 pg/mL (19.9-100)
[2025-01-23 17:48] VITALS: BP 156/61; PULSE 67; RESP 18; O2SAT 100
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
[2025-01-23 18:01] VITALS: BP 159/68; PULSE 70; RESP 24; O2SAT 99
--- OUTSIDE RECORDS SUMMARY | 2025-01-23 18:57 | XMS_ITS | Referral Summary ---
Author Organization [facility] Address [address] [place] [address] Phone Care Team Providers Care Ball Mill Mixer Name Role Phone Brent Russell MD Unavailable [phone] Evelyn Lopes DO Unavailable [phone] Evelyn Lopes DO Primary Care Provider [phone] Allergies Active Allergy Reactions Criticality Noted Date [...] mg by mouth daily 2 Active multivit gjsjtfkh-jxzf-EW -calcium (THERA-M) 9 mg iron-400 mcg tablet [...] since returning back to his early from [place]. 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 Gender Identity Not on file Sexual Orientation [...] on file Medical Devices Implanted Type Area Linux System Administrator Device Identifier Shelf Expiration Date Model / Serial / Lot [employer] [place] R High Viscosity Cement 40gm Bone Green [id number] - [id number] Implanted:Qty: 1 on 01/18/2022 by Brent Russell MD at [facility] Right: Knee [employer] 12/07/2023 [id number] / / [id number] [employer] Persona Cemented Posterior Stabilize Knee Right 5 Standard [id number] - [id number] Implanted:Qty: 1 on 01/18/2022 by Brent Russell MD at [facility] Right: Knee [employer] [id number] 01/04/2031 [id number] / / [id number] [employer] Us Inc [id number] Persona Cemented Stem Knee Right 5d C Baseplate Tibial Tivanium - [id number] Implanted:Qty: 1 on 01/18/2022 by Brent Russell MD at [facility] Right: Knee [employer] [id number] 02/28/2031 [id number] / / [id number] [employer] [id number] Persona 13mm Posterior Stabilized Knee Right 3-5 C-D Insert - [id number] Implanted:Qty: 1 on 01/18/2022 by Brent Russell MD at [facility] Right: Knee [employer] [id number] 05/10/2029 [id number] / / [id number] Synthes 3.5mm 6mm 34mm 2.5mm Self Tap Small Hexagonal Socket Low Profile 204.834 - [id number] Implanted:Qty: 1 on 01/18/2022 by Brent Russell MD at [facility] Right: Knee Synthes I 204.834 / / Synthes 3.5mm 6mm 28mm 2.5mm Self Tap Small Hexagonal Socket Low Profile 204.828 - [id number] Implanted:Qty: 1 on 01/18/2022 by Brent Russell MD at [facility] Right: Knee Synthes I 204.828 / / Synthes Lcp Combi [id number] 4 Hole Head 4 Hole Shaft Right Angle T 241.141 - [id number] Implanted:Qty: 1 on 01/18/2022 by Brent Russell MD at [facility] Right: Knee Synthes I 241.141 / / Insurance [facility] RE[facility] [place] [id number] [facility] HMO REF Advance Directives For more information, please contact: [phone] * Full Code (Latest Code Status on File) Date Activated Date Inactivated Comments 01/26/2022 9:01 PM 01/30/2022 6:39 PM * Full Code Date Activated Date Inactivated Comments 01/18/2022 3:00 PM 01/22/2022 9:37 PM Care Teams Ball Mill Mixer Relationship Specialty Start Date End Date Evelyn Lopes DO [address] [facility] [address] [address] [place] [address] PCP - General 01/30/22 Brent Russell MD Surgeon Orthopedic Surgery 01/18/22 Evelyn Lopes DO [address] [facility] [address] [place] [address] Consulting Physician Family Medicine 01/30/22
--- OUTSIDE RECORDS SUMMARY | 2025-01-23 18:58 | XMS_ITS | Clinical Summary ---
Author Organization [facility] Address [address] [place] [address] Care Team Providers Care Supervisor Partial Denture Department Name Role Phone KianaJm cheng Primary Care Provider [phone] Source Comments [facility],non-owned Affiliates and Associated Physician Practices is amultiple site organization consisting of ambulatory clinics and hospital sitesin [place], [place], [place] and [place]. This disclosure is being madepursuant to the Care Everywhere program and may not contain all information available regarding this patient. 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 Gender Identity Female 11/17/2021 11:10 AM CDT [...] COMPREHENSIVE METABOLIC PANEL (03/04/2023 3:05 PM CDT) [facility] Glucose 93 70 - 105 mg/dL 03/04/2023 3:35 PM CDT [facility] Sodium 135(L) 136 - 145 mmol/L 03/04/2023 3:35 PM CDT [facility] Potassium 4.8 3.5 - 5.1 mmol/L 03/04/2023 3:35 PM CDT [facility] Chloride 105 98 - 107 mmol/L 03/04/2023 3:35 PM CDT [facility] CO2 21(L) 22 - 29 mmol/L 03/04/2023 3:35 PM CDT [facility] Calcium 9.1 8.4 - 10.4 mg/dL 03/04/2023 3:35 PM CDT [facility] Anion Gap 9 6 - 16 mmol/L 03/04/2023 3:35 PM CDT [facility] BUN 28(H) 7 - 26 mg/dL 03/04/2023 3:35 PM CDT [facility] Creatinine 1.10 0.57 - 1.11 mg/dL 03/04/2023 3:35 PM CDT [facility] Alkaline Phosphatase 81 40 - 150 U/L 03/04/2023 3:35 PM CDT [facility] ALT 15 0 - 55 U/L 03/04/2023 3:35 PM CDT [facility] AST 18 5 - 34 U/L 03/04/2023 3:35 PM CDT [facility] Protein Total 9.4(H) 6.4 - 8.3 gm/dL 03/04/2023 3:35 PM CDT [facility] Albumin 3.4 3.4 - 5.0 gm/dL 03/04/2023 3:35 PM CDT [facility] Bilirubin Total 0.4 0.2 - 1.2 mg/dL 03/04/2023 3:35 PM CDT [facility] eGFR by CKD-EPI 52(L) >=90 mL/min/1.7 3 m2 03/04/2023 3:35 PM CDT [facility] Blood BLOOD SPECIMEN / Unknown Venipuncture / Unknown 03/04/2023 3:05 PM CDT 03/04/2023 3:15 PM CDT us Dangelo Haywood MD LAB - CHEMISTRY ORDERABLES Final Result [facility] [address] [place] [address] from Last 3 Months or Most Recently Relevant to Health Maintenance Insurance [facility] MANAGED MEDICARE ADV ANTHEM Care Teams Supervisor Partial Denture Department Relationship Specialty Start Date End Date Jm Bruno DO [address] [facility] [address] [place] [address] PCP - General Family Medicine 09/23/21
--- OUTSIDE RECORDS SUMMARY | 2025-01-23 18:58 | XMS_ITS | Encounter Summary ---
Author Organization [facility] Address 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 Gender Identity Not on file Sexual Orientation Not on file documented as of this encounter Plan of Treatment Upcoming Encounters Date Type Department Care Team (Late st Contact Info) Description 01/28/2025 10:45 AM CDT Office Visit [facility] [address] [address] Petr Treviño MD [address] [facility] [address] [place] [address] documented as of this encounter Visit Diagnoses Not on filedocumented in this encounter Additional Health Concerns Infection Onset Date Last Indicated Resolved Time Multi Drug Resistant Organism (MDRO) 11/18/202411/06 documented as of this encounter Care Teams Director Of Hospitality Relationship Specialty Start Date End Date Christian Forte MD [address] [place] [address] PCP - General 03/13/18 documented as of this encounter
--- OUTSIDE RECORDS SUMMARY | 2025-01-23 18:58 | XMS_ITS | Clinical Summary ---
Author Organization [facility] Address [address] [place] [address] Phone Care Team Providers Care Financial Investigator Name Role Phone Brent Russell MD Unavailable [phone] Evelyn Lopes DO Unavailable [phone] Evelyn Lopes DO Primary Care Provider [phone] Allergies Active Allergy Reactions Criticality Noted Date [...] mg by mouth daily 2 Active multivit judtdoks-cmik-WI -calcium (THERA-M) 9 mg iron-400 mcg tablet [...] since returning back to his early from [place]. 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 Gender Identity Not on file Sexual Orientation [...] history exists Medical Devices Implanted Type Area Service Delivery Management Consultant Device Identifier Shelf Expiration Date Model / Serial / Lot Touch[employer] [place] R High Viscosity Cement 40gm Bone Green [id number] - [id number] Implanted:Qty: 1 on 01/18/2022 by Brent Russell MD at [facility] Right: Knee [employer] 12/07/2023 [id number] / / [id number] [employer] Persona Cemented Posterior Stabilize Knee Right 5 Standard [id number] - [id number] Implanted:Qty: 1 on 01/18/2022 by Brent Russell MD at [facility] Right: Knee [employer] [id number] 01/04/2031 [id number] / / [id number] [employer] [id number] Persona Cemented Stem Knee Right 5d C Baseplate Tibial Tivanium - [id number] Implanted:Qty: 1 on 01/18/2022 by rBent Russell MD at [facility] Right: Knee [employer] [id number] 02/28/2031 [id number] / / [id number] [employer] [id number] Persona 13mm Posterior Stabilized Knee Right 3-5 C-D Insert - [id number] Implanted:Qty: 1 on 01/18/2022 by Brent Russell MD at [facility] Right: Knee [employer] [id number] 05/10/2029 [id number] / / [id number] Synthes 3.5mm 6mm 34mm 2.5mm Self Tap Small Hexagonal Socket Low Profile 204.834 - [id number] Implanted:Qty: 1 on 01/18/2022 by Brent Russell MD at [facility] Right: Knee Synthes I 204.834 / / Synthes 3.5mm 6mm 28mm 2.5mm Self Tap Small Hexagonal Socket Low Profile 204.828 - [id number] Implanted:Qty: 1 on 01/18/2022 by Brent Russell MD at [facility] Right: Knee Synthes I 204.828 / / Synthes Lcp Combi [id number] 4 Hole Head 4 Hole Shaft Right Angle T 241.141 - [id number] Implanted:Qty: 1 on 01/18/2022 by Brent Russell MD at [facility] Right: Knee Synthes I 241.141 / / Insurance [facility] RE[facility] [place] [id number] [facility] RE[facility] Advance Directives For more information, please contact: [phone] * Full Code (Latest Code Status on File) Date Activated Date Inactivated Comments 01/26/2022 9:01 PM 01/30/2022 6:39 PM * Full Code Date Activated Date Inactivated Comments 01/18/2022 3:00 PM 01/22/2022 9:37 PM Care Teams Financial Investigator Relationship Specialty Start Date End Date Evelyn Lopes DO [address] [facility] [address] [place] [address] PCP - General 01/30/22 Brent Russell MD Surgeon Orthopedic Surgery 01/18/22 Evelyn Lopes DO [address] [facility] [address] [place] [address] Consulting Physician Family Medicine 01/30/22
--- OUTSIDE RECORDS SUMMARY | 2025-01-23 18:58 | XMS_ITS | Clinical Summary ---
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 11/17/2024 1:30 PM CDT Elsi Nur WET POUR MIXER BODY FLUIDS AND STOOLS Fin al Result Performing Organization Address [facility] Co de Phone Number [facility]# [id number] [address] [place] [address] * (ABNORMAL) BRAIN NATRIURETIC PEPTIDE, BNP OR PROBNP (11/17/2024 12:13 PM CDT) PROBNP, N TERMINAL 22,930(H) <449 pg/mL 11/17/2024 1:06 PM CDT [facility] Comment: INTERPRETIVE COMMENT based on diagnosis: Diagnostic [...] CDT 11/17/2024 12:22 PM CDT Elsi Nur WET POUR MIXER CHEMISTRY ORDERABLES Final Result [facility]# [id number] [address] [place] [address] * AMMONIA LEVEL (11/17/2024 12:07 PM CDT) AMMONIA 40.1 11.0 - 51.0 umol/L 11/17/2024 12:48 PM CDT [facility] Blood, venous Venipuncture / Unknown 11/17/2024 12:07 PM CDT 11/17/2024 12:22 PM CDT Elsi Nur WET POUR MIXER CHEMISTRY ORDERABLES Final Result Performing Organization Address City/[facility]/ZIP Co de Phone Number [facility]# [id number] [facility] [place] [address] [place] [address] * (ABNORMAL) BASIC METABOLIC PANEL PLUS (ADD ON CMP TO BMP) (11/16/2024 5:09 AM CDT) TOTAL PROTEIN 7.1 6.7 - 8.6 g/dL 11/16/2024 10:33 AM CDT [facility] ALBUMIN 2.3(L) 3.5 - 5.2 g/dL 11/16/2024 10:33 AM CDT [facility] BILIRUBIN TOTAL <0.2 0.0 - 1.1 mg/dL 11/16/2024 10:33 AM CDT [facility] ALKALINE PHOSPHATASE 84 35 - 104 U/L 11/16/2024 10:33 AM CDT [facility]. [facility] AST 23 <33 U/L 11/16/2024 10:33 AM CDT [facility] ALT 19 <34 U/L 11/16/2024 10:33 AM CDT [facility] Blood Capillary / Unknown 11/16/2024 5:09 AM CDT 11/16/2024 5:13 AM CDT Narrative [facility] - 11/16/2024 10:33 AM CDT Samples containing indocyanine green cause interferences on Total and/or Direct Bilirubin and must not be measured. Yue Pepe MD CHEMISTRY ORDERABLES Final Result Performing Organization Address City/[facility]/ZIP Co de Phone Number [facility] CLCA# [id number] [address] [address] * PHOSPHORUS (11/15/2024 5:42 AM CDT) Only the most recent of25 resultswithin the time period is included. PHOSPHORUS 2.6 2.5 - 4.5 mg/dL 11/15/2024 6:40 AM CDT [facility] Blood Capillary / Unknown 11/15/2024 5:42 AM CDT 11/15/2024 5:48 AM CDT Yue Pepe MD CHEMISTRY ORDERABLES Final Result Performing Organization Address City/[facility]/ZIP Co de Phone Number [facility]# [id number] [address] [place] [address] [place] [address] * MAGNESIUM LEVEL (11/15/2024 5:42 AM CDT) Only the most recent of24 resultswithin the time period is included. MAGNESIUM 2.1 1.6 - 2.4 mg/dL 11/15/2024 6:40 AM CDT [facility] Blood Capillary / Unknown 11/15/2024 5:42 AM CDT 11/15/2024 5:48 AM CDT Yue Pepe MD CHEMISTRY ORDERABLES Final Result Performing Organization Address [facility] Co de Phone Number [facility] CLIA# [id number] [address] [place] [address] * (ABNORMAL) CALCIUM IONIZED (11/15/2024 5:42 AM CDT) Only the most recent of20 resultswithin the time period is included. PH, VENOUS 7.30(L) 7.32 - 7.43 11/15/2024 5:59 AM CDT [facility] CALCIUM IONIZED 4.8 4.8 - 5.2 mg/dL 11/15/2024 5:59 AM CDT [facility] Blood Capillary / Unknown 11/15/2024 5:42 AM CDT 11/15/2024 5:48 AM CDT Yue Pepe MD CHEMISTRY ORDERABLES Final Result Performing Organization Address City/[facility] Co de Phone Number [facility] CLIA# [id number] [facility] [place] [address] [place] [address] * (ABNORMAL) RESPIRATORY CULTURE WITH GRAM STAIN (11/11/2024 10:59 AM CDT) CULTURE PSEUDOMONAS AERUGINOSA(A) TEA MCG/ML 11/13/2024 7:48 AM CDT [facility] Comment:Susceptibility on pr evious culture. CULTURE Absent Normal Segundo TEA MCG/ML 11/13/2024 7:48 AM CDT [facility] GRAM STAIN Non diagnostic pattern 11/13/2024 7:48 AM CDT [facility] GRAM STAIN 4+ (Heavy) Polymorphonuclear WBC 11/13/2024 7:48 AM CDT [facility] Washings (Other, specify) Collection / Unknown 11/11/2024 10:59 AM CDT 11/11/2024 11:21 AM CDT Sera Hair DNP MICROBIOLOGY - GENERAL OR DERABLES Final Result Performing Organization Address [facility] Co de Phone Number [facility] CLIA# [id number] [address] [facility] [address] * (ABNORMAL) HEMOGLOBIN AND HEMATOCRIT (11/10/2024 10:51 PM CDT) HEMOGLOBIN 7.1(L) 11.8 - 14.8 g/dL 11/10/2024 11:03 PM CDT [facility] HEMATOCRIT 22.8(L) 35.5 - 44.0 % 11/10/2024 11:03 PM CDT [facility] Blood Venipuncture / Unknown 11/10/2024 10:51 PM CDT 11/10/2024 10:56 PM CDT Reina Xavier WET POUR MIXER HEMATOLOGY ORDERABLES Final Result Performing Organization Address [facility] Co de Phone Number [facility]# [id number] [address] [facility] [place] [address] * (ABNORMAL) SPUTUM CULTURE WITH GRAM STAIN (11/10/2024 12:35 PM CDT) Only the most recent of2 resultswithin the time period is included. CULTURE HAEMOPHILUS INFLUENZAE(A) TEA MCG/ML 11/12/2024 9:26 AM CDT [facility] Comment:This Haemophilus inf luenzae is beta-lactamase positive, indicating probable resistance to penicillin or ampicillin. For serious infections use ceftriaxone. BETA LACTAMASE Positive 11/12/2024 9:26 AM CDT [facility] CULTURE PSEUDOMONAS AERUGINOSA(A) TEA MCG/ML 11/12/2024 9:26 AM CDT [facility] CULTURE Absent Normal Segundo TEA MCG/ML 11/12/2024 9:26 AM CDT [facility] GRAM STAIN Non diagnostic pattern 11/12/2024 9:26 AM CDT [facility] GRAM STAIN 4+ (Heavy) Polymorphonuclear WBC 11/12/2024 9:26 AM CDT [facility] Sputum SPUTUM SPECIMEN OBTAINED BY ASPIRATION / [...] MICROBIOLOGY - GENERAL ORD ERABLES Final Result [facility]# [id number] [address] [facility] [place] [address] * POC LACTIC ACID (11/10/2024 9:40 AM CDT) Only the most recent of6 resultswithin the time period is included. LACTIC ACID POC 1.0 <=2.0 mmol/L 11/10/2024 9:40 AM CDT [facility] SPECIMEN SOURCE, GASES POC Arterial 11/10/2024 9:40 AM CDT [facility] COMMENT, GASES POC Responsible Clinical Caregiver notified 11/10/2024 9:40 AM CDT [facility] Blood 11/10/2024 9:4 0 AM CDT 11/10/2024 9:41 AM CDT Yue Pepe MD POINT OF CARE TESTING Final Result [id number] [address] [place] [address] * (ABNORMAL) BLOOD GAS,(INCL. H+H, LYTES, GLUC) (11/10/2024 9:40 AM CDT) Only the most recent of6 resultswithin the time period is included. [facility] PH BLOOD POC 7.41 7.35 - 7.45 11/10/2024 9:40 AM T [facility] PCO2 POC 44 35 - 48 mm Hg 11/10/2024 9:40 AM [facility] PO2 POC 210(H) 83 - 108 mm Hg 11/10/2024 9:40 AM [facility] TCO2 (CALC) POC 29(H) 19 - 24 mmol/L 11/10/2024 9:40 AM T [facility] HCO3 (CALC) POC 28(H) 22 - 26 mmol/L 11/10/2024 9:40 AM T [facility] O2 SATURATION POC 99(H) 94 - 98 % 11/10/2024 9:40 AM [facility] BASE EXCESS POC 3 -2 - 3 mmol/L 11/10/2024 9:40 AM [facility] HEMOGLOBIN POC 7.2(L) 11.8 - 14.8 g/dL 11/10/2024 9:40 AM T [facility] HEMATOCRIT POC 22(L) 36 - 44 % 11/10/2024 9:40 AM [facility] Comment:Estimated Value GLUCOSE POC 92 74 - 99 mg/dL 11/10/2024 9:40 AM [facility] SODIUM POC 140 136 - 145 mmol/L 11/10/2024 9:40 AM [facility] POTASSIUM POC 3.4(L) 3.5 - 5.0 mmol/L 11/10/2024 9:40 AM [facility] CHLORIDE POC 109(H) 98 - 107 mmol/L 11/10/2024 9:40 AM T [facility] CALCIUM IONIZED POC 4.4(L) 4.7 - 5.1 mg/dL 11/10/2024 9:40 AM T [facility] PH TEMP CORRECT 7.41 7.35 - 7.45 11/10/2024 9:40 AM T [facility] PCO2 TEMP CORRECT 44 35 - 48 mm Hg 11/10/2024 9:40 AM T [facility] PO2 TEMP CORRECT 210(H) 83 - 108 mm Hg 11/10/2024 9:40 AM T [facility] SPECIMEN SOURCE, GASES POC Arterial 11/10/2024 9:40 AM [facility] PATIENT'S TEMPERATURE POC 37.0 degrees 11/10/2024 9:40 AM [facility] COMMENT, GASES POC Responsible Clinical Caregiver notified 11/10/2024 9:40 AM [facility] Blood, arterial 11/10/2024 9 :40 AM CDT 11/10/2024 9:41 AM CDT us Yue Pepe MD ABG ORDERABLES Final Resul t [facility]# [id number] [address] [place] [address] [place] [address] * [place] ANES INSERT ENDOTRACHEAL AIRWAY (11/10/2024 7:41 AM CDT) Narrative Lucas Kowalski AA-C - 11/10/2024 7:41 AM CDT Lucas Kowalski AA-C 11/10/2024 8:50 AM Airway Date/Time: 11/10/2024 7:41 AM Location: OR Plan: elective intubation Patient Identity Confirmed by: Verbally with patient and armband Airway: not difficult Staffing Performed: Student NA/AA Authorized by: Oleg Garsia MD Performed by: Lucas Kowalski AA-C Desk Operator: Lucas Kowalski AA-C Indications and Patient Condition: [...] 136 - 145 mmol/L 11/08/2024 12:04 PM [facility] POTASSIUM 3.7 3.5 - 5.0 mmol/L 11/08/2024 12:04 PM [facility] CHLORIDE 110(H) 98 - 107 mmol/L 11/08/2024 12:04 PM [facility] CO2 27 22 - 29 mmol/L 11/08/2024 12:04 PM [facility] CALCIUM 8.1(L) 8.6 - 10.2 mg/dL 11/08/2024 12:04 PM [facility] BUN 64(H) 8 - 23 mg/dL 11/08/2024 12:04 PM [facility] CREATININE 1.34(H) 0.51 - 0.95 mg/dL 11/08/2024 12:04 PM [facility] Comment:The GFR result is no t clinically significant on patients <18 or >70 years of age. GLUCOSE 126(H) 74 - 99 mg/dL 11/08/2024 12:04 PM [facility] TOTAL PROTEIN 7.0 6.7 - 8.6 g/dL 11/08/2024 12:04 PM [facility] ALBUMIN 2.2(L) 3.5 - 5.2 g/dL 11/08/2024 12:04 PM [facility] BILIRUBIN TOTAL 0.2 0.0 - 1.1 mg/dL 11/08/2024 12:04 PM [facility] ALKALINE PHOSPHATASE 112(H) 35 - 104 U/L 11/08/2024 12:04 PM [facility] AST 29 <33 U/L 11/08/2024 12:04 PM [facility] ALT 19 <34 U/L 11/08/2024 12:04 PM [facility] GFR 41 mL/min/1.7 3 sq meter 11/08/2024 12:04 PM [facility] Comment:eGFR calculated with 2020 CKD-EPI equation. Vegetarian diet, extremely high or low muscle mass, and may affect results. Cystatin C with Glomerular Filtration Rate is a suitable alternative for these patients. ANION GAP 11 8 - 16 mmol/L 11/08/2024 12:04 PM [facility] Blood Venipuncture / Unknown 11/08/2024 11:03 AM CDT 11/08/2024 11:07 AM [facility] - 11/08/2024 12:04 PM [facility] Samples containing indocyanine green cause interferences on Total and/or Direct Bilirubin and must not be measured. us Chi Valentine MD CHEMISTRY ORDERABLES Final Re sult [facility] SERVICES [facility] CLIA# [id number] [address] [place] [place] [address] * XR ABDOMEN FOR FEEDING TUBE 1 VW (11/01/2024 11:25 AM CDT) Only the most recent of14 resultswithin the time period is included. Anatomical Region Laterality Modality Abdomen Computed Radiogr aphy 11/01/2024 11:2 5 AM CDT Impressions 11/01/2024 11:30 AM CDT IMPRESSION: An enteric tube courses through the stomach terminating at the pylorus. DICTATION LOCATION: [address] Narrative 11/01/2024 11:30 AM CDT EXAMINATION: [...] stomach terminating at the pylorus. DICTATION LOCATION: [address] us Petr Treviño MD DIAGNOSTIC IMAGING ORDERABLE S Final Result * UPPER ENDOSCOPY REPORT (10/31/2024 2:39 PM CDT) Narrative Procedure Note Elfego Bay MD - 10/31/2024 2:39 PM CDT [facility] Patient Name: Lynette Lyle Procedure Date: [...] of Addenda: [address]; [place] [address] Elfego Bay MD GI PROCEDURE ORDERABLES Final Re sult * (ABNORMAL) BLOOD GAS VENOUS (10/28/2024 7:11 PM CDT) PH, VENOUS 7.31(L) 7.32 - 7.43 10/28/2024 7:49 PM CDT [facility] PCO2 VENOUS 49 38 - 50 mm Hg 10/28/2024 7:49 PM CDT [facility] . [facility] PO2 VENOUS 37 25 - 40 mm Hg 10/28/2024 7:49 PM CDT [facility] . [facility] HCO3 VENOUS 24 22 - 29 mmol/L 7:49 PM CDT [facility] BASE EXCESS VENOUS -1.6 Reference Range Not Established mmol/L 10/28/2024 7:49 PM CDT [facility] HEMOGLOBIN VENOUS 9.4 No Ref Range Estab g/dL 10/28/2024 7:49 PM CDT [facility] O2 SAT EST VENOUS 68 40 - 70 % 10/28/2024 7:49 PM CDT [facility] OXYGEN MODE Venturi Mask 10/28/2024 7:49 PM CDT [facility] FIO2 40.0 21.0 - 100.0 % 10/28/2024 7:49 PM CDT [facility] Blood, venous Venipuncture / Unknown 10/28/2024 7:11 PM CDT 10/28/2024 7:45 PM CDT Alban WATSON ABG ORDERABLES Final Result [facility]# [id number] [address] [place], [place] [id number] * IR VENOUS ACCESS (10/28/2024 2:41 PM CDT) Narrative 10/28/2024 2:41 PM CDT Order information only. Exam was auto-finalized. Alban MEEKS ORDERABLES Final Result * ECHO COMPLETE - CONTRAST AND STRAIN IF INDICATED (10/28/2024 11:13 AM CDT) EJECTION FRACTION 60 INTERFACE SYSTEM 10/28/2024 10:4 5 AM CDT Narrative INTERFACE SYSTEM - 10/28/2024 11:16 AM CDT [facility] [address] [place] [address] [email or web address] Echocardiogram Patient: Lynette Lyle Study ID: ECHO COMPLETE - Gender: F : 1950 Age: 74 Race: CAU Height 160cm Study Date: 10/28/2024 Weight: 77.3kg Access. #: [id number] BP: *Referring Physician:* Chi Valentine *Ordering Physician:* Chi Valentine company doctor: Nurse: STUDY CONCLUSIONS: SUMMARY: - Left ventricle: [...] AM. Prepared and Electronically Authenticated Lonny Mckinley [id number]:16:15 Procedure Note Lonny Mckinley MD - 10/28/[address] [address] [email or web address] Echocardiogram Patient: Lynette Lyle Study ID: ECHO COMPLETE - Gender: F : 1950 Age: 74 Race: CAU Height 160cm Study Date: 10/28/2024 Weight: 77.3kg Access. #: [id number] BP: *Referring Physician:* Chi Valentine *Ordering Physician:* Chi Valentine company doctor: Nurse: STUDY CONCLUSIONS: SUMMARY: - Left ventricle: [...] AM. Prepared and Electronically Authenticated Lonny Mckinley [id number] us Chi Valentine MD US ORDERABLES Final Result Performing Organization Address [facility] Phone Number INTERFACE SYSTEM Refer to clinic/hospital department * EXTRA TUBE (GREEN) (10/26/2024 8:10 PM CDT) Blood Venipuncture / Unknown 10/26/2024 8:10 PM CDT 10/26/2024 8:18 PM CDT Trent Vizcaino MD CHEMISTRY ORDERAB LES Final Result Performing Organization Address [facility] Co de Phone Number [facility] [id number] [address] [place] [address] * EXTRA TUBE (LAV) (10/26/2024 8:10 PM CDT) Blood Venipuncture / Unknown 10/26/2024 8:10 PM CDT 10/26/2024 8:18 PM CDT Trent Vizcaino MD HEMATOLOGY ORDERA BLES Final Result Performing Organization Address [facility] Co de Phone Number [facility] CLIA# [id number] [address] [place] [address] * EXTRA TUBE (RED) (10/26/2024 8:10 PM CDT) Blood Venipuncture / Unknown 10/26/2024 8:10 PM CDT 10/26/2024 8:18 PM CDT Trent Vizcaino MD CHEMISTRY ORDERAB LES Final Result [facility] CLIA# [id number] [address] [place] [address] * EXTRA TUBE (BLUE) (10/26/2024 8:10 PM CDT) Blood Venipuncture / Unknown 10/26/2024 8:10 PM CDT 10/26/2024 8:18 PM CDT us Trent Vizcaino MD HEMATOLOGY ORDERA BLES Final Result Performing Organization Address City/[facility]/ZIP Co de Phone Number [facility] CLIA# [id number] [address] [place] [address] * EXTRA TUBE (SST/GOLD) (10/26/2024 8:10 PM CDT) Blood Venipuncture / Unknown 10/26/2024 8:10 PM CDT 10/26/2024 8:18 PM CDT us Trent Vizcaino MD CHEMISTRY ORDERAB LES Final Result Performing Organization Address City/[facility]/ZIP Co de Phone Number [facility] CLIA# [id number] [address] [place] [address] * EXTRA TUBE (PINK) (10/26/2024 8:10 PM CDT) Blood Venipuncture / Unknown 10/26/2024 8:10 PM CDT 10/26/2024 8:18 PM CDT Trent Vizcaino MD CHEMISTRY ORDERAB LES Final Result Performing Organization Address [facility]/ZIP Co de Phone Number [facility]# [id number] [address] [place] [address] * EXTRA TUBE (CRAIG) (10/26/2024 8:10 PM CDT) Blood Venipuncture / Unknown 10/26/2024 8:10 PM CDT 10/26/2024 8:18 PM CDT Trent Vizcaino MD CHEMISTRY ORDERAB LES Final Result Performing Organization Address [facility] Co de Phone Number [facility] CLIA# [id number] [address] [place] [address] * EXTRA TUBE (GREEN NO GEL) (10/26/2024 8:10 PM CDT) Blood Venipuncture / Unknown 10/26/2024 8:10 PM CDT 10/26/2024 8:19 PM CDT Trent Vizcaino MD CHEMISTRY ORDERAB LES Final Result Performing Organization Address [facility] de Phone Number [facility] [id number] [address] [place] [address] * CARBOXYHEMOGLOBIN (10/25/2024 10:19 PM CDT) Only the most recent of4 resultswithin the time period is included. [facility] CARBOXYHEMOGLOBIN 2.4 <=7.0 % 025 10:33 PM CDT [facility] Comment: Reference Range: Non-Smokers: 0-2% Smokers: < or = 9% Toxic: > 15% HEMOGLOBIN ABG 12.3 11.8 - 14.8 g/dL 10/25/2024 10:33 PM CDT [facility] Blood Venipuncture / Unknown 10/25/2024 10:19 PM CDT 10/25/2024 10:28 PM CDT Kirk Olsen PA-C ABG ORDERABLES Final Resul t [facility]# [id number] [address] [place] [address] * LACTIC ACID (10/25/2024 1:35 AM CDT) LACTIC ACID 1.3 <=2.0 mmol/L 10/25/2024 2:10 AM CDT [facility] Blood Venipuncture / Unknown 10/25/2024 1:35 AM CDT 10/25/2024 1:48 AM CDT Kirk Olsen PA-C CHEMISTRY ORDERABLES Final Result Performing Organization Address City/[facility]/ZIP Co de Phone Number [facility]# [id number] [facility] [place] [address] [place] [address] * (ABNORMAL) OXIMETRY (10/24/2024 10:03 PM CDT) Only the most recent of2 resultswithin the time period is included. OXYHEMOGLOBIN POC 89.5(L) 94.0 - 97.0 % 10/24/2024 10:03 PM CDT [facility] HEMOGLOBIN POC 12.4 11.8 - 14.8 g/dL 10/24/2024 10:03 PM CDT [facility] O2 SATURATION POC 100(H) 40 - 70 % 10/24/2024 10:03 PM CDT [facility] SPECIMEN SOURCE, GASES POC Venous 10/24/2024 10:03 PM T [facility] SAMPLE SITE, GASES POC N-SY 10/24/2024 10:03 PM CDT [facility] COMMENT, GASES POC Responsible Clinical Caregiver notified 10/24/2024 10:03 PM CDT [facility] Blood 10/24/2024 10:0 3 PM CDT 10/24/2024 10:05 PM CDT Trent Vizcaino MD ABG ORDERABLES F inal Result [facility] CLIA# [id number] [address] [place] [address] * (ABNORMAL) METHEMOGLOBIN QUANTITATIVE (10/24/2024 10:03 PM CDT) Only the most recent of2 resultswithin the time period is included. METHEMOGLOBIN QUANT POC 1.6(H) <1.5 % 10/24/2024 10:03 PM CDT [facility] HEMOGLOBIN POC 12.4 11.8 - 14.8 g/dL 10/24/2024 10:03 PM CDT [facility] COMMENT, GASES POC Responsible Clinical Caregiver notified 10/24/2024 10:03 PM CDT [facility] Blood 10/24/2024 10:0 3 PM CDT 10/24/2024 10:05 PM CDT Trent Vizcaino MD ABG ORDERABLES F inal Result Performing Organization Address City/[facility]/ZIP Co de Phone Number [facility] CLIA# [id number] [address] [place] [address] * VERIFICATION BLOOD GROUP (10/24/2024 9:42 PM CDT) ABO GROUP O 10/24/2024 10:23 PM CDT [facility] (D) TYPE Positive 10/24/2024 10:23 PM CDT [facility] Blood Venipuncture / Unknown 10/24/2024 9:42 PM CDT 10/24/2024 9:44 PM CDT Delfin Landin MD BLOOD BANK ORDERABLES Final Result [id number] [address] [facility] [place] [address] * (ABNORMAL) DRUG SCREEN, URINE (10/24/2024 9:29 PM CDT) [facility] AMPHETAMINE QUAL, URINE Negative Negative 10/24/2024 10:15 PM CDT [facility] BARBITURATE QUAL, URINE Negative Negative 10/24/2024 10:15 PM CDT [facility] BENZODIAZEPINE QUAL, URINE Presumptive Positive(A) Negative 10/24/2024 10:15 PM CDT [facility] COCAINE QUAL URINE Negative Negative 10/24/2024 10:15 PM CDT [facility] OPIATE QUAL, URINE Negative Negative 10/24/2024 10:15 PM CDT [facility] CANNABINOIDS QUAL, URINE Negative Negative 10/24/2024 10:15 PM CDT [facility] PCP QUAL, URINE Negative Negative 10:15 PM CDT [facility] OXYCODONE QUAL, URINE Negative Negative 10/24/2024 10:15 PM CDT [facility] METHADONE QUAL, URINE Negative Negative 10/24/2024 10:15 PM CDT [facility] FENTANYL QUAL, URINE Presumptive Positive(A) Negative 10/24/2024 10:15 PM CDT [facility] CREATININE, URINE 85.4 29.0 - 226.0 mg/dL 10/24/2024 10:15 PM CDT [facility] Comment:Reference Range vari es with fluid intake and diet. Urine (Urine, indwelling (Mccollum) catheter) Collection / Unknown 10/24/2024 9:29 PM CDT 10/24/2024 9:31 PM CDT [facility] - 10/24/2024 10:15 PM CDT [...] Trent Vizcaino MD URINE ORDERABLES Final Result [facility]# [id number] [address] [place] [address] * PROTIME-INR (10/24/2024 9:18 PM CDT) PROTIME 14.2 12.7 - 15.1 Seconds 10/24/2024 9:49 PM CDT [facility] INR 1.1 0.9 - 1.1 10/24/2024 9:49 PM CDT [facility] Blood Venipuncture / Unknown 10/24/2024 9:18 PM CDT 10/24/2024 9:20 PM CDT [facility] - 10/24/2024 9:49 PM CDT INR Therapeutic Range: Adult: 2.0 - 3.0 for pulmonary embolism or prophylaxis against venous thrombosis or systemic embolization. 2.0 - 3.0 for patients with tissue heart valves. 2.5 - 3.5 for patients with mechanical heart valves or post NE. Pediatric (12 years and under): 1.5 - 3.0 Although the target range in children is not well established, INR values of 1.5 - 3.0 are recommended for most patients. Higher values have been used in children with prosthetic cardiac valves and hereditary clotting disorders. [place] (<3 days) therapeutic ranges have not been established. Trent Vizcaino MD HEMATOLOGY ORDERA BLES Final Result Performing Organization Address [facility]/ZIP Co de Phone Number [facility]# [id number] [address] [place] [address] * FIBRINOGEN QUANTITATIVE (10/24/2024 9:18 PM CDT) FIBRINOGEN 322 205 - 450 mg/dL 10/24/2024 9:49 PM CDT [facility] Blood Venipuncture / Unknown 10/24/2024 9:18 PM CDT 10/24/2024 9:20 PM CDT Trent Vizcaino MD HEMATOLOGY ORDERA BLES Final Result Performing Organization Address [facility] Co de Phone Number [facility]# [id number] [address] [place] [address] * ETHANOL LEVEL (10/24/2024 9:18 PM CDT) ETHANOL <10.10 <10.10 mg/dL 10/24/2024 10:09 PM CDT [facility] ETHANOL % <0.01 %w/v 10/24/2024 10:09 PM CDT [facility] Blood Venipuncture / Unknown 10/24/2024 9:18 PM CDT 10/24/2024 9:30 PM CDT Result [facility] Trent Vizcaino MD CHEMISTRY ORDERAB LES Final Result Performing Organization Address [facility]/ZIP Co de Phone Number [facility]# [id number] [address] [place] [address] * Critical Care (10/24/2024 8:46 PM CDT) [...] Drug Resistant Organism (MDRO) 11/18/2024 11/18/2024 Insurance Advance Directives For more information, please contact: [phone] * Full Code (Latest Code Status on File) Date Activated Date Inactivated Comments 10/24/2024 10:57 PM 12/04/2024 6:20 PM Care Teams Sample Shoe Inspector And Reworker Relationship Specialty Start Date End Date Christian Forte MD [address] [facility] [address] [place] [id number] PCP - General 03/13/18
[2025-01-23] MEDS: TRIAMTERENE 37.5 MG/HCTZ 25 MG (MAXZIDE) TABLET 2 TAB PO (19:00)
[2025-01-23 19:02] VITALS: BP 153/58; PULSE 67; RESP 20; O2SAT 100
== END 2025-01-23 19:05 | disposition home or self-care (01) ==
PROVIDERS: Physician Assistant; Emergency Provider Emergency Medicine; PCP Family Medicine
DX: R60.0 Localized edema (principal); I10 Essential (primary) hypertension; E78.5 Hyperlipidemia, unspecified; K21.9 Gastro-esophageal reflux disease without esophagitis; Z87.01 Personal history of pneumonia (recurrent)
CPT/HCPCS: 36415; 80053; 83880; 85025; 85610; 85730; 99283; A9270

== ENCOUNTER 2025-05-12 03:56 | Inpatient (IN) | payer MEDICARE, SELFPAY ==
[2025-05-12] VITALS (34 sets, daily range): BP systolic 115–153; BP diastolic 44–71; PULSE 63–160; RESP 14–96; TEMP 36.7–37.6; O2SAT 91–99; BMI 31.4
--- NOTE | ~2025-05-12 | XR_ITS ---
Examination: XR chest 1V portable Clinical History: coarse lung sounds Comparison: 1 day prior Technique: Portable AP Findings: Heart size enlarged. Pleural effusions persist, as do interstitial markings. No acute bony abnormality. IMPRESSION: 1. No significant change. 2. Pleural effusions with bibasilar atelectasis and/or airspace disease. 3. Interstitial pulmonary edema.. Reviewed, dictated and finalized at location R. ER STUDIES PROFESSOR
--- NOTE | ~2025-05-12 | CT_ITS ---
EXAMINATION: CTA chest PE protocol, 05/17/2025 13:35 SALES TEAM RECRUITER HISTORY: hypoxia COMPARISON: No comparisons available. TECHNIQUE: CTA examination is obtained with contrast CTA examination technique is performed with arterial phase of contrast-enhancement. 3-D reconstruction with thin MIP axial and MPR coronal imaging is provided Isovue 300, 92cc injected IV. One or more of the following dose reduction techniques were used: automated exposure control, adjustment of the mA and/or kV according to patient size, use of iterative reconstruction technique. FINDINGS: No significant coronary calcification is present ([id number]) LUNGS: The contrast bolus is adequate, there is no pulmonary embolism identified. No tracheomalacia. No bronchiectasis. Dense inspissated mucus noted in the distal trachea. Moderate left basilar infiltrate and pleural effusion. Small right basilar infiltrate and pleural effusion. Scattered small infiltrates are noted bilaterally. Moderate pulmonary venous congestion. HEART AND PERICARDIUM: Moderate cardiomegaly. Trace pericardial effusion. AORTA: No aneurysm is identified.. PULMONARY ARTERIES: No pulmonary embolism ADENOPATHY/MEDIASTINUM: None. LIMITED VIEWS OF THE ABDOMEN: There is thickening of the esophagus. No acute process within the visualized abdomen. There is hyperemia of the gastric wall which may reflect underlying gastritis. OSSEOUS STRUCTURES: No sclerotic or lytic lesions. No acute rib fractures. OVERLYING SOFT TISSUES: Mild probable soft tissue anasarca. THYROID: The thyroid is unremarkable. IMPRESSION: Negative for pulmonary embolism. CHF with superimposed probable moderate to severe bronchopneumonia. Follow-up recommended to assess resolution. Reviewed, dictated and finalized at location P. S TEAM RECRUITER IMPRESSION: Negative for pulmonary embolism. CHF with superimposed probable moderate to sev ere bronchopneumonia. Follow-up recommended to assess resolution.
--- NOTE | ~2025-05-12 | XR_ITS ---
Examination: XR chest 1V portable Clinical History: difficulty breathing Comparison: 12/24/2024 Technique: Portable AP Findings: Heart size enlarged. Pleural effusions. Mildly increased interstitial markings. Bibasilar opacities. No acute bony abnormality. IMPRESSION: 1. Pleural effusions, with bibasilar atelectasis and/or airspace disease. 2. Interstitial pulmonary edema. Reviewed, dictated and finalized at location R. GAMES DEALER
--- NOTE | 2025-05-12 04:00 | ECG_ITS ---
Test Date: 2025-05-12 04:10:03 Measurements Intervals [place] Rate: 117 P: 82 LA: 174 QRS: -35 QRSD: 135 T: 116 QT: 342 QTc: 477 Interpretive Statements SINUS TACHYCARDIA LEFT AXIS DEVIATION [QRS AXIS < -30] INTRAVENTRICULAR CONDUCTION DELAY [130+ ms QRS DURATION] LEFT VENTRICULAR HYPERTROPHY AND ST-T CHANGE [VOLTAGE CRITERIA PLUS ST/T ABNORMALITY] Electronically Signed On 05-12-2025 06:40:11 CABLE FERRYBOAT OPERATOR by Lewis Lopez M.D.
--- NOTE | 2025-05-12 04:05 | PC.NURSE ---
1st set of blood cultures drawn with iv start by ed anderson senior.Kurin device used.
[2025-05-12 04:17] LABS: Hematocrit 38.2 % (37.0-47.0); Hemoglobin 12.0 g/dL (12.0-15.0); Immature Granulocyte Percent A 0.3 % (0-0.5); Lymphocytes Absolute Auto 0.43 K/mm3 (0.9-3.2); Mean Corpuscular HGB Conc 31.4 g/dl (32-36); Mean Corpuscular Hemoglobin 29.0 pg (26-34); Mean Corpuscular Volume 92.3 fl (80-100); Nucleated Red Blood Cells Absolute Auto 0.000 K/mm3 (0.0-0.012); Nucleated Red Blood Cells Perc 0.0 % (0.0-0.2); Platelet Count Result 262 k/mm3 (150-375); Red Blood Count 4.14 M/mm3 (4.2-5.4); White Blood Count 12.2 K/mm3 (4.5-10.0)
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
[2025-05-12] MEDS: ALBUTEROL SULFATE NEB 2.5 MG/3 ML INH 10 MG INHALATION (04:19)
[2025-05-12] MEDS: IPRATROPIUM BR 0.02% INH SOLN 0.5 MG/2.5 ML VIAL 1 MG INHALATION (04:20)
[2025-05-12] MEDS: MAGNESIUM SULF 2 GM/WATER 50ML 2 GM/50 ML BAG IVPB (04:33)
[2025-05-12] MEDS: dexAMETHasone SOD PHOS INJ 10 MG/ML 1 ML VIAL IV PUSH (04:34)
[2025-05-12] MEDS: LACTATED RINGERS 1,000 ML 999 ML IV CONT (04:34)
[2025-05-12 04:35] LABS: Fractional Inspired Oxygen 30 %; HCO3 VBG 26.2 mEq/l (24.0-30.0); PCO2 VBG 54.5 mmHg (42.0-48.0); PO2 VBG 40.8 mmHg (35.0-45.0); pH VBG 7.300 (7.300-7.400)
[2025-05-12 04:35] LABS: Alanine Aminotransferase 15 U/L (6-35); Albumin Level 4.1 g/dL (3.5-5.1); Alkaline Phosphatase 84 U/L (38-126); Anion Gap 7 mmol/L (4-12); Aspartate Amino Transferase 33 U/L (14-36); Bilirubin,Total 0.6 mg/dL (0.2-1.3); Blood Urea Nitrogen 21 mg/dL (7-17); Calcium 8.4 mg/dL (8.4-10.2); Carbon Dioxide 25 mmol/L (22-30); Chloride 103 mmol/L (98-107); Estimated CRCL calculation 36 ml/min; Estimated Glomerular Filt Rate 52; Glucose 98 mg/dL (65-110); Potassium 4.4 mmol/L (3.4-5.0); Sodium 135 mmol/L (137-145); Total Protein 10.7 g/dL (6.3-8.2)
[2025-05-12 04:53] LABS: Influenza A QL RT-PCR Negative (Negative); Influenza B QL RT-PCR Negative (Negative); RSV RNA, RT-PCR Negative (Negative); SARS-CoV-2 RNA PCR Negative (Negative)
[2025-05-12] MEDS: cefTRIAXone 1 GM in SODIUM CHLORIDE 0.9% IV 50 ML 100 ML IVPB (05:50)
[2025-05-12] MEDS: AZITHROMYCIN IV 500 MG in SODIUM CHLORIDE 0.9% IV 250 ML IVPB (06:21)
[2025-05-12] MEDS: LACTATED RINGERS 1,000 ML 125 ML IV CONT ×3 (06:21→21:42)
--- NOTE | 2025-05-12 07:00 | ADMGEN ---
This patient, Lynette Watson, was admitted to IMU Room 201-01. Patient/family oriented to hospital policies and general routines including ID bracelet, bed and alarms, visiting hours, pain management, procedures, bathroom and other care routines, personal items, smoking policy, room service/diet, and visiting hours. Information on how to activate the Rapid Response Team has been discussed. Patient/Family are encouraged to report perceived risks to care and to ask questions if they do not understand what they are told or what they should do.
[2025-05-12] MEDS: IPRATROPIUM 0.5 MG/ALBUTEROL SULFATE 2.5 MG (BASE) AMPUL.NEB 3 ML INHALATION ×3 (07:40→20:06)
[2025-05-12] MEDS: ACETAMINOPHEN 325 MG TABLET 650 MG PO ×3 (08:39→20:50)
[2025-05-12] MEDS: ONDANSETRON INJ 4 MG/2 ML VIAL IV PUSH (13:53)
[2025-05-12] MEDS: HYDROcodone/acetaminophen (*CRX) 5-325 MG TABLET 1 TAB PO (15:15)
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
[2025-05-12] MEDS: guaiFENesin 600 MG/DEXTROMETHORPHAN 30 MG SR TAB 12 HR 1 TAB PO (20:49)
[2025-05-12] MEDS: ZOLPIDEM TARTRATE (*CRX) 5 MG TABLET PO (20:50)
[2025-05-13] VITALS (26 sets, daily range): BP systolic 118–149; BP diastolic 48–82; PULSE 66–91; RESP 19–25; TEMP 36.3–36.8; O2SAT 7–100
--- NOTE | 2025-05-13 | ECHO_ITS ---
Patient Info Name: Lynette Watson Age: 75 years : 1950 Gender: Female Ht: 60 in Wt: 165 lbs BSA: 1.81 m2 HR: 83 bpm BP: 147 / 51 mmHg Heart Rhythm: Sinus Rhythm Technical Quality: Good Exam Date: 05/13/2025 1:21 PM Patient Status: I Admit Date: 05/13/2025 Exam Type: CA echo doppler color flow Complete two-dimensional, color flow and Doppler transthoracic echocardiogram is performed. Staff Referring Physician: Jocelynn Ferro HANDICRAFTS TEACHER Garment Sewing Machine Operator: Melita Agustin Attending Provider: Heather Cummings Summary 1. Complete two-dimensional, color flow and Doppler transthoracic echocardiogram is performed. 2. Left ventricular chamber dimension is mildly enlarged. 3. Left ventricular systolic function is low normal, estimated at 50-55. 4. There is mildly increased left ventricular wall thickness. 5. The left ventricular diastolic function is grade I diastolic dysfunction. 6. Left atrial chamber dimension is mildly enlarged. 7. There is mild mitral valve regurgitation. 8. There is mild tricuspid valve regurgitation. 9. Moderate pulmonary hypertension, estimated pulmonary arterial systolic pressure is 50 mmHg. 10. There is mild pulmonic regurgitation. Left Ventricle Left ventricular chamber dimension is mildly enlarged. Left ventricular systolic function is low normal, estimated at 50-55. There is mildly increased left ventricular wall thickness. The left ventricular diastolic function is grade I diastolic dysfunction. Right Ventricle Right ventricular chamber dimension is normal. Right ventricular systolic function is normal. Left Atria Left atrial chamber dimension is mildly enlarged. Right Atria Right atrial chamber dimension is normal. Atrial Septum Intact interatrial septum visualized by color flow imaging. Aortic Valve The aortic valve is trileaflet. There is mild aortic valve sclerosis. There is no aortic valve stenosis. There is trace aortic valve regurgitation. Pulmonic Valve The pulmonic valve is normal. There is no pulmonic valve stenosis. There is mild pulmonic regurgitation. Mitral Valve The mitral valve has normal leaflets. There is no mitral valve stenosis. There is mild mitral valve regurgitation. Tricuspid Valve The tricuspid valve leaflets are normal. There is no significant tricuspid valve stenosis. There is mild tricuspid valve regurgitation. Moderate pulmonary hypertension, estimated pulmonary arterial systolic pressure is 50 mmHg. Pericardium/Pleural The pericardium appears normal. There is trivial pericardial effusion. Inferior Vena Cava Normal inferior vena cava with >50% collapse upon inspiration consistent with normal right atrial pressure, 5 mmHg. Aorta The aortic root size at the sinus of Valsalva is normal. Left Ventricular Outflow Tract Name Value Normal LVOT 2D LVOT Diameter 2.0 cm LVOT Doppler LVOT Peak Velocity 142 cm/s LVOT Peak Gradient 8 mmHg LVOT Mean Gradient 6 mmHg LVOT VTI 32 cm LVOT VTI/AV VTI Ratio 0.8 LVOT Stroke Volume 99 ml LVOT CO 8.4 l/min LVOT CI 4.6 l/min/m2 Pulmonic Valve Name Value Normal RVOT Doppler RVOT Peak Velocity 70 cm/s RVOT Peak Gradient 2 mmHg PV Doppler PV Peak Velocity 106 cm/s PV Peak Gradient 5 mmHg Mitral Valve Name Value Normal MV Doppler MV Peak Gradient 6 mmHg MV Mean Gradient 4 mmHg MV Area (Cont Eq VTI) 2.6 cm2 MV Diastolic Function MV E Peak Velocity 104 cm/s MV A Peak Velocity 99 cm/s MV E/A 1.0 MV Decel Time (PW) 279 ms MV Annular TDI MV E/e' (Septal) 13.5 MV E/e' (Lateral) 7.1 MV E/e' (Average) 10.3 Tricuspid Valve Name Value Normal TV Regurgitation Doppler TR Peak Velocity 334 cm/s TR Peak Gradient 43 mmHg Estimated PAP/RSVP RA Pressure 5 mmHg <=5 PA Systolic Pressure 50 mmHg <36 RV Systolic Pressure 50 mmHg <36 Aortic Valve Name Value Normal AV Doppler AV Peak Velocity 187 cm/s AV Peak Gradient 14 mmHg AV Mean Gradient 8 mmHg AV VTI 42 cm AV Area (Cont Eq VTI) 2.3 cm2 >=3.0 AV Area (Cont Eq Zeeshan) 2.4 cm2 AV DI (Zeeshan) 0.76 AV Regurgitation 2D LVOT Area 3.1 cm2 Ventricles Name Value Normal LV Dimensions 2D/MM IVS Diastolic Thickness (2D) 1.0 cm 0.6-1.0 LVID Diastole (2D) 5.0 cm 3.8-5.2 LVIW Diastolic Thickness (2D) 1.0 cm 0.6-0.9 LVID Systole (2D) 3.2 cm 2.2-3.5 LVOT Diameter 2.0 cm LV Mass (2D Cubed) 181.75 g 67.00-162.00 LV Mass Index (2D Cubed) 100 g/m2 43-95 Relative Wall Thickness (2D) 0.40 <=0.42 LV Fractional Shortening/Ejection Fraction 2D/MM LV Fractional Shortening (2D) 36 % 27-45 LV EF (2D Teichholz) 65 % LV Diastolic Volume (4C MOD) 97 ml LV EF (4C MOD) 49 % LV Diastolic Volume (2C MOD) 131 ml LV EF (2C MOD) 61 % LV Diastolic Volume (BP MOD) 115 ml 46-106 LV Diastolic Volume Index (BP MOD) 63 ml/m2 29-61 LV Systolic Volume (BP MOD) 52 ml 14-42 LV Systolic Volume Index (BP MOD) 28 ml/m2 8-24 LV EF (BP MOD) 55 % 54-74 LV Diastolic Length (4C) 8.2 cm LV Systolic Length (4C) 6.9 cm LV Stroke Volume (4C MOD) 48 ml Atria Name Value Normal LA Dimensions LA Volume (4C A-L) 59 ml LA Volume (BP A-L) 70 ml RA Dimensions RA Systolic Major [place] Length (4C) 5.3 cm 2.2-2.8 RA Area (4C) 17.5 cm2 <=18.0 Report Signatures
[2025-05-13] MEDS: IPRATROPIUM 0.5 MG/ALBUTEROL SULFATE 2.5 MG (BASE) AMPUL.NEB 3 ML INHALATION ×3 (01:59→14:21)
[2025-05-13 04:43] LABS: Hematocrit 31.6 % (37.0-47.0); Hemoglobin 9.6 g/dL (12.0-15.0); Immature Granulocyte Percent A 0.8 % (0-0.5); Lymphocytes Absolute Auto 1.33 K/mm3 (0.9-3.2); Mean Corpuscular HGB Conc 30.4 g/dl (32-36); Mean Corpuscular Hemoglobin 29.1 pg (26-34); Mean Corpuscular Volume 95.8 fl (80-100); Nucleated Red Blood Cells Absolute Auto 0.000 K/mm3 (0.0-0.012); Nucleated Red Blood Cells Perc 0.0 % (0.0-0.2); Platelet Count Result 218 k/mm3 (150-375); Red Blood Count 3.30 M/mm3 (4.2-5.4); White Blood Count 22.5 K/mm3 (4.5-10.0)
[2025-05-13 05:07] LABS: Alanine Aminotransferase 9 U/L (6-35); Albumin Level 3.2 g/dL (3.5-5.1); Alkaline Phosphatase 50 U/L (38-126); Anion Gap 5 mmol/L (4-12); Aspartate Amino Transferase 21 U/L (14-36); Bilirubin,Total 0.6 mg/dL (0.2-1.3); Blood Urea Nitrogen 23 mg/dL (7-17); Calcium 8.0 mg/dL (8.4-10.2); Carbon Dioxide 24 mmol/L (22-30); Chloride 103 mmol/L (98-107); Estimated CRCL calculation 40 ml/min; Estimated Glomerular Filt Rate 58; Glucose 115 mg/dL (65-110); Potassium 5.0 mmol/L (3.4-5.0); Sodium 132 mmol/L (137-145); Total Protein 8.7 g/dL (6.3-8.2)
[2025-05-13] MEDS: LACTATED RINGERS 1,000 ML 125 ML IV CONT (05:46)
[2025-05-13] MEDS: FUROSEMIDE INJ 40 MG/4 ML VIAL 20 MG IV PUSH ×3 (06:12→17:29)
[2025-05-13] MEDS: FLUTICASONE/UMECLIDIN/VILANTER 100-62.5-25 MCG ELLIPTA 1 PUFF INHALATION (08:31)
--- NOTE | 2025-05-13 08:44 | P.PNIM_ITS ---
Progress Note: A&P Assessment and Plan (1) HTN (hypertension): Qualifiers: Hypertension type: primary hypertension Qualified Code(s): I10 - Essential (primary) hypertension Code(s): I10 - Essential (primary) hypertension Status: Chronic (2) CKD (chronic kidney disease): Code(s): N18.9 - Chronic kidney disease, unspecified Status: Acute (3) Pneumonia: Qualifiers: Pneumonia type: due to unspecified organism Laterality: bilateral Lung location: unspecified part of lung Qualified Code(s): J18.9 - Pneumonia, unspecified organism Code(s): J18.9 - Pneumonia, unspecified organism Status: Acute (4) Acute hypoxic respiratory failure: Code(s): J96.01 - Acute respiratory failure with hypoxia Status: Acute (5) COPD (chronic obstructive pulmonary disease): Code(s): J44.9 - Chronic obstructive pulmonary disease, unspecified Status: Acute (6) CHF (congestive heart failure): Code(s): I50.9 - Heart failure, unspecified Status: Acute Plan 75-year-old female with history of COPD, prior tobacco use disorder, hypertension, CKD, núñez with skin graft with recurrent pneumonias followed by pulmonology in the outpatient setting. Presents to [facility] ER on 05/12/2025 complaining of several days of shortness of breath and headache. Last had pneumonia several months ago. SpO2 on home monitor 92%. Placed on BiPAP in the emergency room. Patient reports productive cough. Denies fever or chills and does not use home oxygen. Patient transition to nasal cannula the floor. Chest x-ray demonstrating multifocal opacities greater on the right than left. Started on ceftriaxone and azithromycin. Quad viral screen negative. ----- Acute hypoxic respiratory failure with hypoxia and hypercapnia/Bilateral p neumonia/CHF exacerbation -ABG demonstrates pCO2 55 on admission. Patient breathing comfortably. Currently on 1 L nasal cannula. Continue to titrate. -producing sputum, check sputum culture. Check Legionella, mycoplasma, strep pneumococcus. Continue ceftriaxone and azithromycin started on 05/12/2025. Continue Mucinex DM 12 hour. Pending blood cultures. Monitor leukocytosis, rec eived steroids in the ER. Check procalcitonin. -patient reports history of CHF. Check BNP and echocardiogram. Chest x-ray reveals pulmonary edema, lung auscultation with rales and rhonchi. Received Lasix 40 mg IV x1 morning of 05/13/2025. Continue Lasix 20 mg IV b.i.d. and titrate medications based on echo results. Daily weights, intake/output. Heart healthy diet. 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 Hyperproteinemia -SPEP and urine immunofixation pending. CKD -presents with serum creatinine 1.03, continue to monitor. ----- Patient wishes to be full code Daily weights, intake/output recording. Healthy diet. Saline lock IV. 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 Stable. Heparin 5000 units subQ q.12h Time Spent With Patient Time: Greater than 50 minutes spent Subjective Date/time seen: 05/13/25 08:44 Interval history: Overnight patient was given Lasix. This morning, she reports no breathing difficulties. She has a productive cough, started out as brown and now more clear. Denies fever. No chest pain. Review of Systems Review of Systems: All systems reviewed & are unremarkable except as noted in HPI and below (Subjective) Exam Const: General: comfortable and no acute distress HENMT: Mouth: Yes moist mucous membranes Eyes: Pupils: Equal, round and reactive pupils present Neck: Neck: supple Resp: Effort & Inspection: normal respiratory effort Other: Bilateral rhonchi, crackles, diminished lung sounds. Cardio: Rate: regular rate Rhythm: regular rhythm Heart sounds: Murmur heart sound present GI: Inspection: non-distended GI Palp: Yes Soft to palpation Auscultation: normal bowel sounds Neuro: Motor exam (neuro): 5/5 motor strength present throughout Extrem: Other: Trace pitting edema bilateral lower extremities below the knees Objective Data Vital Signs Vital Signs: Vital Signs - 24 hr 05/12/25 10:00 05/12/25 12:00 05/12/25 12:00 Temperature 99.6 F Pulse Rate 99 95 Respiratory Rate Blood Pressure 152/66 H Pulse Oximetry 98 99 Oxygen Delivery Nasal Cannula Oxygen Flow Rate 4 Fraction of Inspired Oxygen 05/12/25 12:00 05/12/25 13:30 05/12/25 14:00 Temperature Pulse Rate 99 92 Respiratory Rate Blood Pressure Pulse Oximetry 98 Oxygen Delivery Nasal Cannula Oxygen Flow Rate 2 Fraction of Inspired Oxygen 05/12/25 14:46 05/12/25 14:51 05/12/25 16:00 Temperature 98.0 F Pulse Rate 81 63 95 Respiratory Rate 18 18 24 H Blood Pressure 120/44 L Pulse Oximetry 95 Oxygen Delivery Oxygen Flow Rate Fraction of Inspired Oxygen 05/12/25 16:00 05/12/25 16:00 05/12/25 16:39 Temperature Pulse Rate 95 95 Respiratory Rate Blood Pressure Pulse Oximetry 93 Oxygen Delivery Nasal Cannula Oxygen Flow Rate 2 Fraction of Inspired Oxygen 05/12/25 18:00 05/12/25 20:00 05/12/25 20:00 Temperature 98.2 F Pulse Rate 86 84 Respiratory Rate 24 H Blood Pressure 137/63 Pulse Oximetry 97 97 Oxygen Delivery Nasal Cannula Oxygen Flow Rate 2 Fraction of Inspired Oxygen 05/12/25 20:00 05/12/25 20:06 05/12/25 20:06 Temperature Pulse Rate 86 85 84 Respiratory Rate 18 18 Blood Pressure Pulse Oximetry 95 Oxygen Delivery Nasal Cannula Oxygen Flow Rate 2 Fraction of Inspired Oxygen 05/12/25 20:19 05/12/25 22:00 05/12/25 22:45 Temperature Pulse Rate 84 73 85 Respiratory Rate 16 18 Blood Pressure Pulse Oximetry 95 Oxygen Delivery BiPAP Oxygen Flow Rate Fraction of Inspired Oxygen 05/12/25 23:40 05/13/25 00:00 05/13/25 00:00 Temperature 98.0 F Pulse Rate 73 66 Respiratory Rate 26 H Blood Pressure 153/53 H Pulse Oximetry 98 98 Oxygen Delivery Nasal Cannula Oxygen Flow Rate 2 Fraction of Inspired Oxygen 05/13/25 02:00 05/13/25 02:04 05/13/25 02:04 Temperature Pulse Rate 73 79 79 Respiratory Rate 21 H 21 H Blood Pressure Pulse Oximetry 97 97 Oxygen Delivery BiPAP BiPAP Oxygen Flow Rate Fraction of Inspired Oxygen 30 05/13/25 02:04 05/13/25 04:00 05/13/25 04:00 Temperature 98.2 F Pulse Rate 79 78 Respiratory Rate 21 H 25 H Blood Pressure 140/54 L Pulse Oximetry 99 98 Oxygen Delivery Nasal Cannula Oxygen Flow Rate 2 Fraction of Inspired Oxygen 05/13/25 04:00 05/13/25 06:00 05/13/25 06:11 Temperature Pulse Rate 73 68 Respiratory Rate Blood Pressure 131/48 L Pulse Oximetry Oxygen Delivery Oxygen Flow Rate Fraction of Inspired Oxygen 05/13/25 07:35 05/13/25 07:39 05/13/25 07:43 Temperature Pulse Rate 77 77 73 Respiratory Rate 19 19 Blood Pressure Pulse Oximetry 7 L Oxygen Delivery Nasal Cannula Oxygen Flow Rate 2 Fraction of Inspired Oxygen 28 05/13/25 08:00 05/13/25 08:09 05/13/25 08:33 Temperature 97.3 F L Pulse Rate 76 74 Respiratory Rate 20 19 Blood Pressure 147/51 H Pulse Oximetry 96 100 Oxygen Delivery Nasal Cannula Oxygen Flow Rate 2 Fraction of Inspired Oxygen Intake/Output Intake/Output: Intake & Output 05/10/25 05/11/25 05/12/25 05/13/25 22:59 23:59 23:59 23:59 Intake Total 4141.7 1500.8 Output Total 500 400 Balance 3641.7 1100.8 Meds/Results Medications: Active Medications Generic Name Dose Route Start Last Admin Trade Name Freq PRN Reason Stop Dose Admin Acetaminophen 650 mg 05/12/25 05:45 05/12/25 20:50 Acetaminophen 325 Mg Tablet PO 650 mg Q4H PRN Administration Mild Pain (1-3) or Fever Hydrocodone Bitart/Acetaminophen 1 tab 05/12/25 15:42 Hydrocodone/Acetaminophen (*Crx) 5-325 Mg Tablet PO Q4H PRN Moderate Pain (4-6) Albuterol/Ipratropium 3 ml 05/12/25 08:00 05/13/25 07:31 Ipratropium 0.5 Mg/Albuterol Sulfate 2.5 Mg (Base) Ampul.Neb 3 Ml INHALATION 3 ml Q6HRT ALVIN Administration Atorvastatin Calcium 40 mg 05/13/25 09:00 Atorvastatin 40 Mg Tablet PO DAILY ALVIN Bisacodyl 5 mg 05/12/25 15:42 Bisacodyl 5 Mg Tablet Ec PO DAILY PRN Constipation Carvedilol 3.125 mg 05/12/25 17:00 05/12/25 16:39 Carvedilol 3.125 Mg Tablet PO 3.125 mg BID ALVIN Administration Docusate Sodium 100 mg 05/12/25 17:00 05/12/25 16:39 Docusate Sodium 100 Mg Capsule PO Not Given BID ALVIN Duloxetine HCl 60 mg 05/13/25 09:00 Duloxetine Hcl 60 Mg Capsule.Dr PO DAILY ALVIN Fluticasone/Umeclidinium/Vilanterol 1 puff 05/13/25 09:00 05/13/25 08:31 Fluticasone/Umeclidin/Vilanter 100-62.5-25 Mcg Ellipta INHALATION 1 puff DAILY ALVNI Administration Guaifenesin/Dextromethorphan 1 tab 05/12/25 21:00 05/12/25 20:49 Guaifenesin 600 Mg/Dextromethorphan 30 Mg Sr Tab 12 Hr PO 1 tab Q12HR ALVIN Administration Heparin Sodium (Porcine) 5,000 units 05/12/25 21:00 05/12/25 20:49 Heparin Sodium 5,000 Units/Ml Vial SUB-Q 5,000 units Q12HR AVLIN Administration Ceftriaxone Sodium 1 gm/ 50 mls @ 100 mls/hr 05/13/25 06:00 Sodium Chloride IVPB 05/16/25 05:59 Q24H ALVIN Azithromycin 250 mg in 250 mls @ 250 mls/hr 05/13/25 09:00 Zithromax IVPB Q24H [facility] Irbesartan 75 mg 05/13/25 09:00 Irbesartan 75 Mg Tablet PO DAILY [facility] Naloxone HCl 0.1 mg 05/12/25 15:42 Naloxone Hcl 0.4 Mg/Ml Vial IV PUSH Q2M PRN Opiate Reversal Ondansetron HCl 4 mg 05/12/25 05:45 05/12/25 13:53 Ondansetron Inj 4 Mg/2 Ml Vial IV PUSH 4 mg Q4H PRN Administration Nausea Pantoprazole Sodium 40 mg 05/13/25 09:00 Pantoprazole 40 Mg Tablet PO QAM [facility] Triamterene/Hydrochlorothiazide 2 tab 05/13/25 09:00 Triamterene 37.5 Mg/Hctz 25 Mg (Maxzide) Tablet PO QAM [facility] Vitamin D 125 mcg 05/13/25 09:00 Cholecalciferol (Vitamin D3) 125 Mcg (5,000 Units) Tablet PO DAILY [facility] Zolpidem Tartrate 5 mg 05/12/25 21:00 05/12/25 20:50 Zolpidem Tartrate (*Crx) 5 Mg Tablet PO 5 mg HS ALVIN Administration Radiology Results: ITS Impressions Chest X-Ray 05/13/25 06:35 IMPRESSION: 1. No significant change. 2. Pleural effusions with bibasilar atelectasis and/or airspace disease. 3. Interstitial pulmonary edema.. Labs Labs: Laboratory Results - last 24 hr 05/13/25 03:49 WBC 22.5 H RBC 3.30 L Hgb 9.6 L Hct 31.6 L MCV 95.8 MCH 29.1 MCHC 30.4 L RDW 14.7 H Plt Count 218 MPV 9.3 Immature Gran % (Auto) 0.8 H Neut % (Auto) 87.9 H Lymph % (Auto) 5.9 L [place] % (Auto) 5.3 Eos % (Auto) 0.0 Baso % (Auto) 0.1 L Lymph # (Auto) 1.33 [place] # (Auto) 1.2 H Eos # (Auto) 0.0 Baso # (Auto) 0.0 Abs Immat Gran (auto) 0.19 H Absolute Neuts (auto) 19.7 H Absolute Nucleated RBC 0.000 Nucleated RBC % 0.0 Sodium 132 L Potassium 5.0 Chloride 103 Carbon Dioxide 24 Anion Gap 5 BUN 23 H Creatinine 0.94 Estim Creat Clear Calc 40 Estimated GFR 58 L Glucose 115 H Calcium 8.0 L Total Bilirubin 0.6 AST 21 ALT 9 Alkaline Phosphatase 50 Total Protein 8.7 H Albumin 3.2 L
[2025-05-13] MEDS: CHOLECALCIFEROL (VITAMIN D3) 125 MCG (5,000 UNITS) TABLET PO (08:47)
[2025-05-13] MEDS: IRBESARTAN 75 MG TABLET PO (08:47)
[2025-05-13] MEDS: guaiFENesin 600 MG/DEXTROMETHORPHAN 30 MG SR TAB 12 HR 1 TAB PO ×2 (08:47→20:45)
[2025-05-13] MEDS: HYDROcodone/acetaminophen (*CRX) 5-325 MG TABLET 1 TAB PO ×3 (08:47→20:45)
[2025-05-13] MEDS: PANTOPRAZOLE 40 MG TABLET PO (08:48)
[2025-05-13] MEDS: DULoxetine HCL 60 MG CAPSULE.DR PO (08:48)
[2025-05-13] MEDS: ATORVASTATIN 40 MG TABLET PO (08:48)
[2025-05-13] MEDS: cefTRIAXone 1 GM in SODIUM CHLORIDE 0.9% IV 50 ML 100 ML IVPB (08:49)
[2025-05-13] MEDS: AZITHROMYCIN 250 MG/NS 250 ML 250 MG/250 ML BAG IVPB (08:49)
[2025-05-13] MEDS: TRIAMTERENE 37.5 MG/HCTZ 25 MG (MAXZIDE) TABLET 2 TAB PO (08:50)
[2025-05-13 09:19] LABS: NT Pro B Type Natriuretic Pept 6610 pg/mL (19.9-100)
[2025-05-13] MEDS: ZOLPIDEM TARTRATE (*CRX) 5 MG TABLET PO (20:45)
--- NOTE | 2025-05-13 22:51 | PC.NURSE ---
This patient, Lynette Watson, was transferred to [facility] on 05/13/25 at 2245 Personal belongings sent with patient. Report given to RODY Harmon. Appropriate documentation sent with patient.
--- NOTE | 2025-05-13 23:02 | PC.NURSE ---
Pt transferred from IMU Room 201-1 to [facility] Medical Room 259-1 via bed on 1L O2. All appropriate belongings, equipment, and charting brought with pt. Report received from RODY Henderson in IMU.
[2025-05-14] VITALS (17 sets, daily range): BP systolic 138–156; BP diastolic 56–62; PULSE 72–90; RESP 16–20; TEMP 36.4–36.6; O2SAT 90–97
[2025-05-14] MEDS: HYDROcodone/acetaminophen (*CRX) 5-325 MG TABLET 1 TAB PO ×4 (01:10→20:47)
[2025-05-14 05:26] LABS: Hematocrit 31.8 % (37.0-47.0); Hemoglobin 9.5 g/dL (12.0-15.0); Immature Granulocyte Percent A 0.8 % (0-0.5); Lymphocytes Absolute Auto 1.65 K/mm3 (0.9-3.2); Mean Corpuscular HGB Conc 29.9 g/dl (32-36); Mean Corpuscular Hemoglobin 28.7 pg (26-34); Mean Corpuscular Volume 96.1 fl (80-100); Nucleated Red Blood Cells Absolute Auto 0.000 K/mm3 (0.0-0.012); Nucleated Red Blood Cells Perc 0.0 % (0.0-0.2); Platelet Count Result 212 k/mm3 (150-375); Red Blood Count 3.31 M/mm3 (4.2-5.4); White Blood Count 15.5 K/mm3 (4.5-10.0)
[2025-05-14 05:51] LABS: Anion Gap 4 mmol/L (4-12); Blood Urea Nitrogen 30 mg/dL (7-17); Calcium 8.2 mg/dL (8.4-10.2); Carbon Dioxide 28 mmol/L (22-30); Chloride 101 mmol/L (98-107); Estimated CRCL calculation 33 ml/min; Estimated Glomerular Filt Rate 46; Glucose 83 mg/dL (65-110); Magnesium 1.6 mg/dL (1.6-2.3); Potassium 4.3 mmol/L (3.4-5.0); Sodium 133 mmol/L (137-145)
[2025-05-14 05:59] LABS: Procalcitonin 6.6 ng/mL
[2025-05-14] MEDS: IPRATROPIUM 0.5 MG/ALBUTEROL SULFATE 2.5 MG (BASE) AMPUL.NEB 3 ML INHALATION (06:55)
[2025-05-14] MEDS: FLUTICASONE/UMECLIDIN/VILANTER 100-62.5-25 MCG ELLIPTA 1 PUFF INHALATION (08:26)
[2025-05-14] MEDS: PANTOPRAZOLE 40 MG TABLET PO (08:56)
[2025-05-14] MEDS: CHOLECALCIFEROL (VITAMIN D3) 125 MCG (5,000 UNITS) TABLET PO (08:56)
[2025-05-14] MEDS: guaiFENesin 600 MG/DEXTROMETHORPHAN 30 MG SR TAB 12 HR 1 TAB PO ×2 (08:56→20:46)
[2025-05-14] MEDS: ATORVASTATIN 40 MG TABLET PO (08:56)
[2025-05-14] MEDS: IRBESARTAN 75 MG TABLET PO (08:56)
[2025-05-14] MEDS: TRIAMTERENE 37.5 MG/HCTZ 25 MG (MAXZIDE) TABLET 2 TAB PO (08:57)
[2025-05-14] MEDS: DULoxetine HCL 60 MG CAPSULE.DR PO (08:58)
[2025-05-14] MEDS: FUROSEMIDE INJ 40 MG/4 ML VIAL 20 MG IV PUSH (08:58)
[2025-05-14] MEDS: cefTRIAXone 1 GM in SODIUM CHLORIDE 0.9% IV 50 ML 100 ML IVPB (09:02)
[2025-05-14] MEDS: AZITHROMYCIN 250 MG/NS 250 ML 250 MG/250 ML BAG IVPB (09:23)
--- NOTE | 2025-05-14 15:30 | P.PNIM_ITS ---
Progress Note: A&P Assessment and Plan (1) HTN (hypertension): Qualifiers: Hypertension type: primary hypertension Qualified Code(s): I10 - Essential (primary) hypertension Code(s): I10 - Essential (primary) hypertension Status: Chronic (2) CKD (chronic kidney disease): Code(s): N18.9 - Chronic kidney disease, unspecified Status: Acute (3) Pneumonia: Qualifiers: Pneumonia type: due to unspecified organism Laterality: bilateral Lung location: unspecified part of lung Qualified Code(s): J18.9 - Pneumonia, unspecified organism Code(s): J18.9 - Pneumonia, unspecified organism Status: Acute (4) Acute hypoxic respiratory failure: Code(s): J96.01 - Acute respiratory failure with hypoxia Status: Acute (5) COPD (chronic obstructive pulmonary disease): Code(s): J44.9 - Chronic obstructive pulmonary disease, unspecified Status: Acute (6) CHF (congestive heart failure): Code(s): I50.9 - Heart failure, unspecified Status: Acute Plan 75-year-old female with history of COPD, prior tobacco use disorder, hypertension, CKD, núñez with skin graft with recurrent pneumonias followed by pulmonology in the outpatient setting. Presents to [facility] ER on 05/12/2025 complaining of several days of shortness of breath and headache. Last had pneumonia several months ago. SpO2 on home monitor 92%. Placed on BiPAP in the emergency room. Patient reports productive cough. Denies fever or chills and does not use home oxygen. Patient transition to nasal cannula the floor. Chest x-ray demonstrating multifocal opacities greater on the right than left. Started on ceftriaxone and azithromycin. Quad viral screen negative. ----- Acute hypoxic respiratory failure with hypoxia and hypercapnia/Bilateral p neumonia/CHF exacerbation -ABG demonstrates pCO2 55 on admission. Patient breathing comfortably. Currently on 1 L nasal cannula. Continue to titrate. -producing sputum, check sputum culture. Check Legionella, mycoplasma, strep pneumococcus. Continue ceftriaxone and azithromycin started on 05/12/2025. Continue Mucinex DM 12 hour. Continue PEP therapy Pending blood cultures. -procalcitonin on 05/14/2025 elevated at 6.6. Did receive steroids in the ER, leukocytosis is downtrending. -patient reports history of CHF. Check BNP and echocardiogram. Chest x-ray reveals pulmonary edema, lung auscultation with rales and rhonchi. Received Lasix 40 mg IV x1 morning of 05/13/2025. Continue Lasix 20 mg IV b.i.d. and titrate medications based on echo results. Daily weights, intake/output. Heart healthy diet. -05/14/2025: Patient with tacky mucous membranes. Lower extremity edema is improved. Serum creatinine elevated. Change Lasix 20 mg IV b.i.d. to 20 mg p.o. q.day. Hypertension -continue RO[employer] Coreg, irbesartan, Lasix. Discontinue triamterene hydrochlorothiazide. COPD -scheduled DuoNebs q.6 hours p.r.n.. Hyperproteinemia -SPEP and urine immunofixation pending. CKD -presents with serum creatinine 1.03, continue to monitor. ----- Patient wishes to be full code Daily weights, intake/output recording. Healthy diet. Saline lock IV. 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 Heparin 5000 units subQ q.12h, SCDs Time Spent With Patient Time with patient: Greater than 35 minutes Subjective Date/time seen: 05/14/25 15:30 Interval history: No major acute overnight events. Patient denies shortness of breath, cough, chest pain. Review of Systems Review of Systems: All systems reviewed & are unremarkable except as noted in HPI and below (Subjective) Exam Const: General: comfortable and no acute distress HENMT: Mouth: Yes moist mucous membranes Eyes: Pupils: Equal, round and reactive pupils present Neck: Neck: supple Resp: Effort & Inspection: normal respiratory effort Other: Bilateral rhonchi. Diminished breath sounds. Cardio: Rate: regular rate Rhythm: regular rhythm Heart sounds: Murmur heart sound present GI: Inspection: non-distended GI Palp: Yes Soft to palpation Auscultation: normal bowel sounds Neuro: Motor exam (neuro): 5/5 motor strength present throughout Extrem: Other: Trace pitting edema bilateral lower extremities below the knees Objective Data Vital Signs Vital Signs: Vital Signs - 24 hr 05/13/25 16:00 05/13/25 16:00 05/13/25 17:29 Temperature 98 F Pulse Rate 82 81 80 Respiratory Rate 22 H Blood Pressure 133/51 L Pulse Oximetry 94 Oxygen Delivery Oxygen Flow Rate 05/13/25 20:00 05/13/25 20:00 05/13/25 20:00 Temperature 98.3 F Pulse Rate 79 79 Respiratory Rate 20 Blood Pressure 149/82 H Pulse Oximetry 95 95 Oxygen Delivery Nasal Cannula Oxygen Flow Rate 1 05/13/25 20:07 05/13/25 23:02 05/13/25 23:07 Temperature 97.6 F Pulse Rate 78 75 74 Respiratory Rate 20 Blood Pressure 130/51 L Pulse Oximetry 95 92 Oxygen Delivery Nasal Cannula Oxygen Flow Rate 1 05/13/25 23:08 05/14/25 00:00 05/14/25 00:40 Temperature Pulse Rate 73 72 Respiratory Rate 19 Blood Pressure Pulse Oximetry 92 95 Oxygen Delivery Nasal Cannula BiPAP Oxygen Flow Rate 1 05/14/25 04:00 05/14/25 05:23 05/14/25 06:57 Temperature 98 F Pulse Rate 82 83 88 Respiratory Rate 18 19 Blood Pressure 150/62 H Pulse Oximetry 94 Oxygen Delivery Oxygen Flow Rate 05/14/25 06:58 05/14/25 07:40 05/14/25 07:45 Temperature Pulse Rate 90 Respiratory Rate 20 Blood Pressure Pulse Oximetry 90 Oxygen Delivery Nasal Cannula Nasal Cannula Oxygen Flow Rate 1 1 05/14/25 08:56 05/14/25 08:58 05/14/25 12:04 Temperature Pulse Rate 90 90 81 Respiratory Rate 20 Blood Pressure Pulse Oximetry 90 Oxygen Delivery Nasal Cannula Oxygen Flow Rate 2 05/14/25 13:47 Temperature 97.6 F Pulse Rate 76 Respiratory Rate 16 Blood Pressure 138/58 L Pulse Oximetry 97 Oxygen Delivery Oxygen Flow Rate Intake/Output Intake/Output: Intake & Output 05/11/25 05/12/25 05/13/25 05/14/25 23:59 23:59 23:59 23:59 Intake Total 4141.7 2880.8 880 Output Total 500 3550 250 Balance 3641.7 -669.2 630 Meds/Results Medications: Active Medications Generic Name Dose Route Start Last Admin Trade Name Freq PRN Reason Stop Dose Admin Acetaminophen 650 mg 05/12/25 05:45 05/12/25 20:50 Acetaminophen 325 Mg Tablet PO 650 mg Q4H PRN Administration Mild Pain (1-3) or Fever Hydrocodone Bitart/Acetaminophen 1 tab 05/12/25 15:42 05/14/25 13:18 Hydrocodone/Acetaminophen (*Crx) 5-325 Mg Tablet PO 1 tab Q4H PRN Administration Moderate Pain (4-6) Albuterol/Ipratropium 3 ml 05/12/25 08:00 05/14/25 14:17 Ipratropium 0.5 Mg/Albuterol Sulfate 2.5 Mg (Base) Ampul.Neb 3 Ml INHALATION Not Given Q6HRT ALVIN Atorvastatin Calcium 40 mg 05/13/25 09:00 05/14/25 08:56 Atorvastatin 40 Mg Tablet PO 40 mg DAILY ALVIN Administration Bisacodyl 5 mg 05/12/25 15:42 Bisacodyl 5 Mg Tablet Ec PO DAILY PRN Constipation Carvedilol 3.125 mg 05/12/25 17:00 05/14/25 08:56 Carvedilol 3.125 Mg Tablet PO 3.125 mg BID ALVIN Administration Docusate Sodium 100 mg 05/12/25 17:00 05/14/25 08:57 Docusate Sodium 100 Mg Capsule PO Not Given BID [facility] Duloxetine HCl 60 mg 05/13/25 09:00 05/14/25 08:58 Duloxetine Hcl 60 Mg Capsule.Dr PO 60 mg DAILY ALVIN Administration Fluticasone/Umeclidinium/Vilanterol 1 puff 05/13/25 09:00 05/14/25 08:26 Fluticasone/Umeclidin/Vilanter 100-62.5-25 Mcg Ellipta INHALATION 1 puff DAILY ALVIN Administration Furosemide 20 mg 05/13/25 09:00 05/14/25 08:58 Furosemide Inj 40 Mg/4 Ml Vial IV PUSH 20 mg BID ALVIN Administration Guaifenesin/Dextromethorphan 1 tab 05/12/25 21:00 05/14/25 08:56 Guaifenesin 600 Mg/Dextromethorphan 30 Mg Sr Tab 12 Hr PO 1 tab Q12HR ALVIN Administration Heparin Sodium (Porcine) 5,000 units 05/12/25 21:00 05/14/25 08:57 Heparin Sodium 5,000 Units/Ml Vial SUB-Q 5,000 units Q12HR ALVIN Administration Azithromycin 250 mg in 250 mls @ 250 mls/hr 05/13/25 09:00 05/14/25 10:23 Zithromax IVPB Infused Q24H ALVIN Infusion Ceftriaxone Sodium 1 gm/ 50 mls @ 100 mls/hr 05/14/25 09:00 05/14/25 09:30 Sodium Chloride IVPB 05/15/25 09:29 Infused Q24H ALVIN Infusion Irbesartan 75 mg 05/13/25 09:00 05/14/25 08:56 Irbesartan 75 Mg Tablet PO 75 mg DAILY ALVIN Administration Naloxone HCl 0.1 mg 05/12/25 15:42 Naloxone Hcl 0.4 Mg/Ml Vial IV PUSH Q2M PRN Opiate Reversal Ondansetron HCl 4 mg 05/12/25 05:45 05/12/25 13:53 Ondansetron Inj 4 Mg/2 Ml Vial IV PUSH 4 mg Q4H PRN Administration Nausea Pantoprazole Sodium 40 mg 05/13/25 09:00 05/14/25 08:56 Pantoprazole 40 Mg Tablet PO 40 mg QAM ALVIN Administration Perflutren Lipid Microsphere 0 ml 05/13/25 08:47 Perflutren Lipid Microspheres 1.5 Ml Vial Diluted To 10 Ml Total Volume IV PUSH 05/16/25 08:47 ONCE PRN adequate visualization Protocol Triamterene/Hydrochlorothiazide 2 tab 05/13/25 09:00 05/14/25 08:57 Triamterene 37.5 Mg/Hctz 25 Mg (Maxzide) Tablet PO 2 tab QAM ALVIN Administration Vitamin D 125 mcg 05/13/25 09:00 05/14/25 08:56 Cholecalciferol (Vitamin D3) 125 Mcg (5,000 Units) Tablet PO 125 mcg DAILY ALVIN Administration Zolpidem Tartrate 5 mg 05/12/25 21:00 05/13/25 20:45 Zolpidem Tartrate (*Crx) 5 Mg Tablet PO 5 mg HS ALVIN Administration Radiology Results: ITS Impressions Chest X-Ray 05/13/25 06:35 IMPRESSION: 1. No significant change. 2. Pleural effusions with bibasilar atelectasis and/or airspace disease. 3. Interstitial pulmonary edema.. Labs Labs: Laboratory Results - last 24 hr 05/14/25 05:18 WBC 15.5 H RBC 3.31 L Hgb 9.5 L Hct 31.8 L MCV 96.1 MCH 28.7 MCHC 29.9 L RDW 14.9 H Plt Count 212 MPV 8.6 Immature Gran % (Auto) 0.8 H Neut % (Auto) 83.2 H Lymph % (Auto) 10.6 L [place] % (Auto) 5.2 Eos % (Auto) 0.1 Baso % (Auto) 0.1 L Lymph # (Auto) 1.65 [place] # (Auto) 0.8 H Eos # (Auto) 0.0 Baso # (Auto) 0.0 Abs Immat Gran (auto) 0.12 H Absolute Neuts (auto) 12.9 H Absolute Nucleated RBC 0.000 Nucleated RBC % 0.0 Sodium 133 L Potassium 4.3 Chloride 101 Carbon Dioxide 28 Anion Gap 4 BUN 30 H Creatinine 1.15 H Estim Creat Clear Calc 33 Estimated GFR 46 L Glucose 83 Calcium 8.2 L Magnesium 1.6 Procalcitonin 6.6
[2025-05-14] MEDS: ZOLPIDEM TARTRATE (*CRX) 5 MG TABLET PO (20:46)
[2025-05-15] VITALS (23 sets, daily range): BP systolic 137–175; BP diastolic 50–74; PULSE 67–80; RESP 16–20; TEMP 36.4–37.1; O2SAT 90–97
[2025-05-15] MEDS: HYDROcodone/acetaminophen (*CRX) 5-325 MG TABLET 1 TAB PO ×4 (00:23→23:06)
[2025-05-15] MEDS: ACETAMINOPHEN 325 MG TABLET 650 MG PO (03:11)
--- NOTE | 2025-05-15 03:43 | ECG_ITS ---
Test Date: 2025-05-15 03:54:40 Measurements Intervals [place] Rate: 65 P: 50 NC: 194 QRS: -47 QRSD: 145 T: 81 QT: 417 QTc: 435 Interpretive Statements SINUS RHYTHM LEFT BUNDLE BRANCH BLOCK Electronically Signed On 05-15-2025 10:04:10 CHIEF INFORMATION OFFICER by Talon Rhoades D.O
[2025-05-15 03:47] LABS: Hematocrit 30.5 % (37.0-47.0); Hemoglobin 9.4 g/dL (12.0-15.0); Immature Granulocyte Percent A 0.5 % (0-0.5); Lymphocytes Absolute Auto 1.42 K/mm3 (0.9-3.2); Mean Corpuscular HGB Conc 30.8 g/dl (32-36); Mean Corpuscular Hemoglobin 29.6 pg (26-34); Mean Corpuscular Volume 95.9 fl (80-100); Nucleated Red Blood Cells Absolute Auto 0.000 K/mm3 (0.0-0.012); Nucleated Red Blood Cells Perc 0.0 % (0.0-0.2); Platelet Count Result 258 k/mm3 (150-375); Red Blood Count 3.18 M/mm3 (4.2-5.4); White Blood Count 12.3 K/mm3 (4.5-10.0)
[2025-05-15 03:59] LABS: Anion Gap 4 mmol/L (4-12); Blood Urea Nitrogen 29 mg/dL (7-17); Calcium 8.4 mg/dL (8.4-10.2); Carbon Dioxide 32 mmol/L (22-30); Chloride 96 mmol/L (98-107); Estimated CRCL calculation 40 ml/min; Estimated Glomerular Filt Rate 58; Glucose 84 mg/dL (65-110); Magnesium 1.4 mg/dL (1.6-2.3); Potassium 4.4 mmol/L (3.4-5.0); Sodium 132 mmol/L (137-145)
[2025-05-15 04:15] LABS: Procalcitonin 3.1 ng/mL
[2025-05-15] MEDS: MAGNESIUM SULF 2 GM/WATER 50ML 2 GM/50 ML BAG IVPB (06:02)
[2025-05-15] MEDS: FLUTICASONE/UMECLIDIN/VILANTER 100-62.5-25 MCG ELLIPTA 1 PUFF INHALATION (08:14)
[2025-05-15] MEDS: cefTRIAXone 1 GM in SODIUM CHLORIDE 0.9% IV 50 ML 100 ML IVPB (08:23)
[2025-05-15] MEDS: ATORVASTATIN 40 MG TABLET PO (08:24)
[2025-05-15] MEDS: CHOLECALCIFEROL (VITAMIN D3) 125 MCG (5,000 UNITS) TABLET PO (08:24)
[2025-05-15] MEDS: guaiFENesin 600 MG/DEXTROMETHORPHAN 30 MG SR TAB 12 HR 1 TAB PO ×2 (08:24→21:01)
[2025-05-15] MEDS: FUROSEMIDE 20 MG TABLET PO (08:24)
[2025-05-15] MEDS: IRBESARTAN 75 MG TABLET PO (08:24)
[2025-05-15] MEDS: DULoxetine HCL 60 MG CAPSULE.DR PO (08:24)
[2025-05-15] MEDS: PANTOPRAZOLE 40 MG TABLET PO (08:25)
--- NOTE | 2025-05-15 08:36 | P.PNIM_ITS ---
Progress Note: A&P Assessment and Plan (1) HTN (hypertension): Qualifiers: Hypertension type: primary hypertension Qualified Code(s): I10 - Essential (primary) hypertension Code(s): I10 - Essential (primary) hypertension Status: Chronic (2) CKD (chronic kidney disease): Code(s): N18.9 - Chronic kidney disease, unspecified Status: Acute (3) Pneumonia: Qualifiers: Pneumonia type: due to unspecified organism Laterality: bilateral Lung location: unspecified part of lung Qualified Code(s): J18.9 - Pneumonia, unspecified organism Code(s): J18.9 - Pneumonia, unspecified organism Status: Acute (4) Acute hypoxic respiratory failure: Code(s): J96.01 - Acute respiratory failure with hypoxia Status: Acute (5) COPD (chronic obstructive pulmonary disease): Code(s): J44.9 - Chronic obstructive pulmonary disease, unspecified Status: Acute (6) CHF (congestive heart failure): Code(s): I50.9 - Heart failure, unspecified Status: Acute Plan 75-year-old female with history of COPD, prior tobacco use disorder, hypertension, CKD, núñez with skin graft with recurrent pneumonias followed by pulmonology in the outpatient setting. Presents to [facility] ER on 05/12/2025 complaining of several days of shortness of breath and headache. Last had pneumonia several months ago. SpO2 on home monitor 92%. Placed on BiPAP in the emergency room. Patient reports productive cough. Denies fever or chills and does not use home oxygen. Patient transition to nasal cannula the floor. Chest x-ray demonstrating multifocal opacities greater on the right than left. Started on ceftriaxone and azithromycin. Quad viral screen negative. ----- Acute hypoxic respiratory failure with hypoxia and hypercapnia/Bilateral p neumonia/CHF exacerbation -ABG demonstrates pCO2 55 on admission. Patient breathing comfortably. Currently on 1 L nasal cannula. Continue to titrate. -producing thick brown mucus, sputum culture obtained on 05/14/2025, pending. Blood cultures on 05/12/2025, no growth to date. -pending Legionella, mycoplasma, strep pneumococcus. -Continue ceftriaxone and azithromycin started on 05/12/2025. Continue Mucinex DM 12 hour. Continue PEP therapy. -procalcitonin on 05/14/2025 elevated at 6.6, since downtrending. -patient reports history of CHF. Chest x-ray reveals pulmonary edema and BNP elevated on admission, received Lasix. IV Lasix transition to Lasix 20 mg p.o. q.day, patient appears euvolemic now. Had a bump in serum creatinine. Daily weights, intake/output. Heart healthy diet. Hold triamterene -echo on 05/13/25: Summary 1. Complete two-dimensional, color flow and Doppler transthoracic echocardiogram is performed. 2. Left ventricular chamber dimension is mildly enlarged. 3. Left ventricular systolic function is low normal, estimated at 50-55. 4. There is mildly increased left ventricular wall thickness. 5. The left ventricular diastolic function is grade I diastolic dysfunction. 6. Left atrial chamber dimension is mildly enlarged. 7. There is mild mitral valve regurgitation. 8. There is mild tricuspid valve regurgitation. 9. Moderate pulmonary hypertension, estimated pulmonary arterial systolic pressure is 50 mmHg. 10. There is mild pulmonic regurgitation. -start Jardiance 10 mg p.o. q.day on 05/15/2025, adverse effects, risk and benefits discussed. 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 -blood pressure slightly above goal on 05/15/2025. Increase Coreg 3.125 mg p.o. b.i.d. to 6.25 mg p.o. b.i.d. COPD -did not appear active on admission. On 05/15/2025, or wheezing and coarse breath sounds. Patient complaining shortness of breath. Start prednisone 40 mg p.o. q.day, change DuoNebs to scheduled. Receiving magnesium for hypomagnesemia. Hypomagnesemia -1.4 on 05/15/2025. Received magnesium 2 g rider Hyperproteinemia -SPEP and urine immunofixation pending. CKD -presents with serum creatinine 1.03, stable. Continue to monitor. ----- Patient wishes to be full code Daily weights, intake/output recording. Healthy diet. Saline lock IV. 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 Heparin 5000 units subQ q.12h, SCDs Time Spent With Patient Time with patient: Greater than 35 minutes Subjective Date/time seen: 05/15/25 08:36 Interval history: Although she rest comfortably at the moment, she reports a difficult morning with shortness of breath. She has cough productive of thick brown sputum. Review of Systems Review of Systems: All systems reviewed & are unremarkable except as noted in HPI and below (Subjective) Exam Const: General: comfortable and no acute distress HENMT: Mouth: Yes moist mucous membranes Eyes: Pupils: Equal, round and reactive pupils present Neck: Neck: supple Resp: Effort & Inspection: normal respiratory effort Other: Bilateral rhonchi, diminished breath sounds, coarse breath sounds with wheeze. Cardio: Rate: regular rate Rhythm: regular rhythm Heart sounds: Murmur heart sound present GI: Inspection: non-distended GI Palp: Yes Soft to palpation Auscultation: normal bowel sounds Neuro: Motor exam (neuro): 5/5 motor strength present throughout Extrem: Other: 1+ pitting edema bilateral lower extremi ty surrounding the ankles Objective Data Vital Signs Vital Signs: Vital Signs - 24 hr 05/14/25 08:56 05/14/25 08:58 05/14/25 12:04 Temperature Pulse Rate 90 90 81 Respiratory Rate 20 Blood Pressure Pulse Oximetry 90 Oxygen Delivery Nasal Cannula Oxygen Flow Rate 2 05/14/25 13:47 05/14/25 16:40 05/14/25 17:02 Temperature 97.6 F Pulse Rate 76 80 78 Respiratory Rate 16 Blood Pressure 138/58 L Pulse Oximetry 97 Oxygen Delivery Oxygen Flow Rate 05/14/25 17:53 05/14/25 20:00 05/14/25 20:08 Temperature 97.6 F Pulse Rate 81 76 Respiratory Rate 18 Blood Pressure 147/56 H Pulse Oximetry 95 95 Oxygen Delivery Nasal Cannula Oxygen Flow Rate 1 05/14/25 20:31 05/15/25 00:00 05/15/25 02:56 Temperature 98 F 97.6 F Pulse Rate 77 79 80 Respiratory Rate 18 18 Blood Pressure 156/61 H 175/74 H Pulse Oximetry 95 94 Oxygen Delivery Oxygen Flow Rate 05/15/25 03:38 05/15/25 04:00 05/15/25 04:05 Temperature 97.6 F Pulse Rate 80 68 67 Respiratory Rate 18 Blood Pressure 137/50 L Pulse Oximetry 95 Oxygen Delivery Oxygen Flow Rate 05/15/25 08:11 05/15/25 08:15 05/15/25 08:25 Temperature 97.7 F Pulse Rate 67 74 Respiratory Rate 18 Blood Pressure 167/61 H Pulse Oximetry 94 90 Oxygen Delivery Nasal Cannula Oxygen Flow Rate 1 Intake/Output Intake/Output: Intake & Output 05/12/25 05/13/25 05/14/25 05/15/25 23:59 23:59 23:59 23:59 Intake Total 4141.7 2880.8 1360 300 Output Total 500 3550 900 400 Balance 3641.7 -669.2 460 -100 Meds/Results Medications: Active Medications Generic Name Dose Route Start Last Admin Trade Name Freq PRN Reason Stop Dose Admin Acetaminophen 650 mg 05/12/25 05:45 05/15/25 03:11 Acetaminophen 325 Mg Tablet PO 650 mg Q4H PRN Administration Mild Pain (1-3) or Fever Hydrocodone Bitart/Acetaminophen 1 tab 05/12/25 15:42 05/15/25 00:23 Hydrocodone/Acetaminophen (*Crx) 5-325 Mg Tablet PO 1 tab Q4H PRN Administration Moderate Pain (4-6) Albuterol/Ipratropium 3 ml 05/15/25 08:35 Ipratropium 0.5 Mg/Albuterol Sulfate 2.5 Mg (Base) Ampul.Neb 3 Ml INHALATION Q6HRT [facility] Atorvastatin Calcium 40 mg 05/13/25 09:00 05/15/25 08:24 Atorvastatin 40 Mg Tablet PO 40 mg DAILY ALVIN Administration Bisacodyl 5 mg 05/12/25 15:42 Bisacodyl 5 Mg Tablet Ec PO DAILY PRN Constipation Carvedilol 3.125 mg 05/12/25 17:00 05/15/25 08:25 Carvedilol 3.125 Mg Tablet PO 3.125 mg BID ALVIN Administration Docusate Sodium 100 mg 05/12/25 17:00 05/15/25 08:26 Docusate Sodium 100 Mg Capsule PO Not Given BID ALVIN Duloxetine HCl 60 mg 05/13/25 09:00 05/15/25 08:24 Duloxetine Hcl 60 Mg Capsule.Dr PO 60 mg DAILY ALVIN Administration Empagliflozin 10 mg 05/15/25 09:00 Empagliflozin 10 Mg Tablet PO DAILY ALVIN Fluticasone/Umeclidinium/Vilanterol 1 puff 05/13/25 09:00 05/15/25 08:14 Fluticasone/Umeclidin/Vilanter 100-62.5-25 Mcg Ellipta INHALATION 1 puff DAILY [facility] Administration Furosemide 20 mg 05/15/25 09:00 05/15/25 08:24 Furosemide 20 Mg Tablet PO 20 mg DAILY ALVIN Administration Guaifenesin/Dextromethorphan 1 tab 05/12/25 21:00 05/15/25 08:24 Guaifenesin 600 Mg/Dextromethorphan 30 Mg Sr Tab 12 Hr PO 1 tab Q12HR ALVIN Administration Heparin Sodium (Porcine) 5,000 units 05/12/25 21:00 05/14/25 20:46 Heparin Sodium 5,000 Units/Ml Vial SUB-Q 5,000 units Q12HR ALVIN Administration Azithromycin 250 mg in 250 mls @ 250 mls/hr 05/13/25 09:00 05/14/25 10:23 Zithromax IVPB Infused Q24H ALVIN Infusion Ceftriaxone Sodium 1 gm/ 50 mls @ 100 mls/hr 05/14/25 09:00 05/15/25 08:23 Sodium Chloride IVPB 05/15/25 09:29 100 mls/hr Q24H ALVIN Administration Irbesartan 75 mg 05/13/25 09:00 05/15/25 08:24 Irbesartan 75 Mg Tablet PO 75 mg DAILY ALVIN Administration Naloxone HCl 0.1 mg 05/12/25 15:42 Naloxone Hcl 0.4 Mg/Ml Vial IV PUSH Q2M PRN Opiate Reversal Ondansetron HCl 4 mg 05/12/25 05:45 05/12/25 13:53 Ondansetron Inj 4 Mg/2 Ml Vial IV PUSH 4 mg Q4H PRN Administration Nausea Pantoprazole Sodium 40 mg 05/13/25 09:00 05/15/25 08:25 Pantoprazole 40 Mg Tablet PO 40 mg QAM ALVIN Administration Perflutren Lipid Microsphere 0 ml 05/13/25 08:47 Perflutren Lipid Microspheres 1.5 Ml Vial Diluted To 10 Ml Total Volume IV PUSH 05/16/25 08:47 ONCE PRN adequate visualization Protocol Prednisone 40 mg 05/15/25 08:40 Prednisone 20 Mg Tablet PO DAILY@0800 ALVIN Vitamin D 125 mcg 05/13/25 09:00 05/15/25 08:24 Cholecalciferol (Vitamin D3) 125 Mcg (5,000 Units) Tablet PO 125 mcg DAILY ALVIN Administration Zolpidem Tartrate 5 mg 05/12/25 21:00 05/14/25 20:46 Zolpidem Tartrate (*Crx) 5 Mg Tablet PO 5 mg HS ALVIN Administration Radiology Results: ITS Impressions Chest X-Ray 05/13/25 06:35 IMPRESSION: 1. No significant change. 2. Pleural effusions with bibasilar atelectasis and/or airspace disease. 3. Interstitial pulmonary edema.. Labs Labs: Laboratory Results - last 24 hr 05/15/25 05/15/25 03:10 03:42 WBC 12.3 H RBC 3.18 L Hgb 9.4 L Hct 30.5 L MCV 95.9 MCH 29.6 MCHC 30.8 L RDW 14.8 H Plt Count 258 MPV 9.2 Immature Gran % (Auto) 0.5 Neut % (Auto) 81.2 H Lymph % (Auto) 11.5 L [place] % (Auto) 5.7 Eos % (Auto) 0.9 Baso % (Auto) 0.2 Lymph # (Auto) 1.42 [place] # (Auto) 0.7 H Eos # (Auto) 0.1 Baso # (Auto) 0.0 Abs Immat Gran (auto) 0.06 H Absolute Neuts (auto) 10.0 H Absolute Nucleated RBC 0.000 Nucleated RBC % 0.0 Sodium 132 L Potassium 4.4 Chloride 96 L Carbon Dioxide 32 H Anion Gap 4 BUN 29 H Creatinine 0.94 Estim Creat Clear Calc 40 Estimated GFR 58 L Glucose 84 POC Capillary Glucose 97 Calcium 8.4 Magnesium 1.4 L Procalcitonin 3.1
[2025-05-15] MEDS: IPRATROPIUM 0.5 MG/ALBUTEROL SULFATE 2.5 MG (BASE) AMPUL.NEB 3 ML INHALATION (09:00)
[2025-05-15] MEDS: EMPAGLIFLOZIN 10 MG TABLET PO (09:00)
[2025-05-15] MEDS: AZITHROMYCIN 250 MG/NS 250 ML 250 MG/250 ML BAG IVPB (09:33)
[2025-05-15] MEDS: IPRATROPIUM BR 0.02% INH SOLN 0.5 MG/2.5 ML VIAL INHALATION ×2 (14:10→20:35)
[2025-05-15 15:09] LABS: Albumin 2.8 g/dL (2.9-4.4); Alpha-1-Globulin 0.3 g/dL (0.0-0.4); Alpha-2-Globulin 0.7 g/dL (0.4-1.0); Gamma Globulin 3.5 g/dL (0.4-1.8)
[2025-05-15] MEDS: ZOLPIDEM TARTRATE (*CRX) 5 MG TABLET PO (21:01)
[2025-05-16] VITALS (24 sets, daily range): BP systolic 145–176; BP diastolic 53–65; PULSE 60–81; RESP 14–20; TEMP 36.4–37; O2SAT 92–97
[2025-05-16] MEDS: IPRATROPIUM BR 0.02% INH SOLN 0.5 MG/2.5 ML VIAL INHALATION ×4 (02:46→21:25)
[2025-05-16 05:31] LABS: Hematocrit 34.0 % (37.0-47.0); Hemoglobin 10.7 g/dL (12.0-15.0); Immature Granulocyte Percent A 0.5 % (0-0.5); Lymphocytes Absolute Auto 2.07 K/mm3 (0.9-3.2); Mean Corpuscular HGB Conc 31.5 g/dl (32-36); Mean Corpuscular Hemoglobin 29.2 pg (26-34); Mean Corpuscular Volume 92.9 fl (80-100); Nucleated Red Blood Cells Absolute Auto 0.000 K/mm3 (0.0-0.012); Nucleated Red Blood Cells Perc 0.0 % (0.0-0.2); Platelet Count Result 303 k/mm3 (150-375); Red Blood Count 3.66 M/mm3 (4.2-5.4); White Blood Count 9.4 K/mm3 (4.5-10.0)
[2025-05-16 05:53] LABS: Anion Gap 6 mmol/L (4-12); Blood Urea Nitrogen 32 mg/dL (7-17); Calcium 8.5 mg/dL (8.4-10.2); Carbon Dioxide 30 mmol/L (22-30); Chloride 96 mmol/L (98-107); Estimated CRCL calculation 38 ml/min; Estimated Glomerular Filt Rate 56; Glucose 100 mg/dL (65-110); Magnesium 1.9 mg/dL (1.6-2.3); Potassium 3.9 mmol/L (3.4-5.0); Sodium 132 mmol/L (137-145)
[2025-05-16] MEDS: HYDROcodone/acetaminophen (*CRX) 5-325 MG TABLET 1 TAB PO ×2 (06:29→14:51)
[2025-05-16] MEDS: CHOLECALCIFEROL (VITAMIN D3) 125 MCG (5,000 UNITS) TABLET PO (08:48)
[2025-05-16] MEDS: DOCUSATE SODIUM 100 MG CAPSULE PO (08:48)
[2025-05-16] MEDS: ATORVASTATIN 40 MG TABLET PO (08:48)
[2025-05-16] MEDS: AZITHROMYCIN 500 MG TABLET PO (08:48)
[2025-05-16] MEDS: guaiFENesin 600 MG/DEXTROMETHORPHAN 30 MG SR TAB 12 HR 1 TAB PO ×2 (08:49→21:09)
[2025-05-16] MEDS: DULoxetine HCL 60 MG CAPSULE.DR PO (08:49)
[2025-05-16] MEDS: FUROSEMIDE 20 MG TABLET PO (08:49)
[2025-05-16] MEDS: EMPAGLIFLOZIN 10 MG TABLET PO (08:49)
[2025-05-16] MEDS: IRBESARTAN 75 MG TABLET PO (08:50)
[2025-05-16] MEDS: PANTOPRAZOLE 40 MG TABLET PO (08:51)
[2025-05-16] MEDS: FLUTICASONE/UMECLIDIN/VILANTER 100-62.5-25 MCG ELLIPTA 1 PUFF INHALATION (08:56)
[2025-05-16] MEDS: ONDANSETRON INJ 4 MG/2 ML VIAL IV PUSH (09:49)
--- NOTE | 2025-05-16 14:23 | P.PNIM_ITS ---
Progress Note: A&P Assessment and Plan (1) HTN (hypertension): Qualifiers: Hypertension type: primary hypertension Qualified Code(s): I10 - Essential (primary) hypertension Code(s): I10 - Essential (primary) hypertension Status: Chronic (2) CKD (chronic kidney disease): Code(s): N18.9 - Chronic kidney disease, unspecified Status: Acute (3) Pneumonia: Qualifiers: Pneumonia type: due to unspecified organism Laterality: bilateral Lung location: unspecified part of lung Qualified Code(s): J18.9 - Pneumonia, unspecified organism Code(s): J18.9 - Pneumonia, unspecified organism Status: Acute (4) Acute hypoxic respiratory failure: Code(s): J96.01 - Acute respiratory failure with hypoxia Status: Acute (5) COPD (chronic obstructive pulmonary disease): Code(s): J44.9 - Chronic obstructive pulmonary disease, unspecified Status: Acute (6) CHF (congestive heart failure): Code(s): I50.9 - Heart failure, unspecified Status: Acute Plan 75-year-old female with history of COPD, prior tobacco use disorder, hypertension, CKD, núñez with skin graft with recurrent pneumonias followed by pulmonology in the outpatient setting. Presents to [facility] ER on 05/12/2025 complaining of several days of shortness of breath and headache. Last had pneumonia several months ago. SpO2 on home monitor 92%. Placed on BiPAP in the emergency room. Patient reports productive cough. Denies fever or chills and does not use home oxygen. Patient transition to nasal cannula the floor. Chest x-ray demonstrating multifocal opacities greater on the right than left. Started on ceftriaxone and azithromycin. Quad viral screen negative. ----- Acute hypoxic respiratory failure with hypoxia and hypercapnia/Bilateral p neumonia/CHF exacerbation -ABG demonstrates pCO2 55 on admission. Patient breathing comfortably. Currently on 1 L nasal cannula. Continue to titrate. -producing thick brown mucus, sputum culture obtained on 05/14/2025, pending. Blood cultures on 05/12/2025, no growth to date. -pending Legionella, mycoplasma, strep pneumococcus. -Continue ceftriaxone and azithromycin started on 05/12/2025. Continue Mucinex DM 12 hour. Continue PEP therapy. -procalcitonin on 05/14/2025 elevated at 6.6, since downtrending. -patient reports history of CHF. Chest x-ray reveals pulmonary edema and BNP elevated on admission, received Lasix. IV Lasix transition to Lasix 20 mg p.o. q.day, patient appears euvolemic now. Had a bump in serum creatinine. Daily weights, intake/output. Heart healthy diet. Hold triamterene -echo on 05/13/25: Summary 1. Complete two-dimensional, color flow and Doppler transthoracic echocardiogram is performed. 2. Left ventricular chamber dimension is mildly enlarged. 3. Left ventricular systolic function is low normal, estimated at 50-55. 4. There is mildly increased left ventricular wall thickness. 5. The left ventricular diastolic function is grade I diastolic dysfunction. 6. Left atrial chamber dimension is mildly enlarged. 7. There is mild mitral valve regurgitation. 8. There is mild tricuspid valve regurgitation. 9. Moderate pulmonary hypertension, estimated pulmonary arterial systolic pressure is 50 mmHg. 10. There is mild pulmonic regurgitation. -start Jardiance 10 mg p.o. q.day on 05/15/2025, adverse effects, risk and benefits discussed. 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 -blood pressure slightly above goal on 05/15/2025. Increased Coreg 3.125 mg p.o. b.i.d. to 6.25 mg p.o. b.i.d. COPD -did not appear active on admission. On 05/15/2025, or wheezing and coarse breath sounds. Patient complaining shortness of breath. Started prednisone 40 mg p.o. q.day, change DuoNebs to scheduled. Receiving magnesium for hypomagnesemia. Hypomagnesemia -1.4 on 05/15/2025. Received magnesium 2 g rider. Resolved. Hyperproteinemia -SPEP and urine immunofixation pending. CKD -presents with serum creatinine 1.03, stable. Continue to monitor. ----- Patient wishes to be full code Daily weights, intake/output recording. Healthy diet. Saline lock IV. 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 Heparin 5000 units subQ q.12h, SCDs 05/16/2025: Evaluated the patient multiple times, multiple discussions with respiratory therapist and the patient's nurse. The patient has been again refusing her breathing treatments. She thinks the breathing treatment causes her nausea, specifically albuterol. We will try just the ipratropium. Monitor nausea, you to try to wean O2. If she is feeling better and still on 1 L tomorrow we will go ahead and check a D-dimer plus/minus a CTA. Aside from that, will be considering discharge with or without home O2. Time Spent With Patient Time with patient: Greater than 35 minutes Subjective Date/time seen: 05/16/25 14:23 Interval history: Patient reports nausea today. She feels as if it was either due to morning medications or the breathing treatment. She has been refusing the breathing treatment prior specifically albuterol. Aside from that, patient has no shortness of breath or complaints. Review of Systems Review of Systems: All systems reviewed & are unremarkable except as noted in HPI and below (Subjective) Exam Const: General: comfortable and no acute distress HENMT: Mouth: Yes moist mucous membranes Eyes: Pupils: Equal, round and reactive pupils present Neck: Neck: supple Resp: Effort & Inspection: normal respiratory effort Other: Wheezing resolved. Finished breath sounds. Cardio: Rate: regular rate Rhythm: regular rhythm Heart sounds: Murmur heart sound present GI: Inspection: non-distended GI Palp: Yes Soft to palpation Auscultation: normal bowel sounds Neuro: Motor exam (neuro): 5/5 motor strength present throughout Extrem: General: no edema Objective Data Vital Signs Vital Signs: Vital Signs - 24 hr 05/15/25 14:29 05/15/25 16:00 05/15/25 18:00 Temperature 98.8 F Pulse Rate 68 67 72 Respiratory Rate 20 20 Blood Pressure 172/67 H Pulse Oximetry 97 Oxygen Delivery Oxygen Flow Rate 05/15/25 20:00 05/15/25 20:00 05/15/25 20:26 Temperature 98.0 F Pulse Rate 75 75 Respiratory Rate 18 Blood Pressure 167/61 H Pulse Oximetry 97 97 Oxygen Delivery Nasal Cannula Oxygen Flow Rate 1 05/15/25 20:35 05/15/25 20:44 05/16/25 00:00 Temperature Pulse Rate 78 72 73 Respiratory Rate 20 20 Blood Pressure Pulse Oximetry Oxygen Delivery Oxygen Flow Rate 05/16/25 00:01 05/16/25 02:35 05/16/25 02:45 Temperature 97.6 F Pulse Rate 60 77 75 Respiratory Rate 18 18 14 Blood Pressure 150/59 H Pulse Oximetry 94 Oxygen Delivery Oxygen Flow Rate 05/16/25 04:00 05/16/25 04:50 05/16/25 08:00 Temperature 97.7 F Pulse Rate 73 68 Respiratory Rate 20 Blood Pressure 176/64 H Pulse Oximetry 95 95 Oxygen Delivery Nasal Cannula Oxygen Flow Rate 1 05/16/25 08:00 05/16/25 08:48 05/16/25 08:51 Temperature Pulse Rate 89 81 81 Respiratory Rate Blood Pressure 155/53 H Pulse Oximetry 95 Oxygen Delivery Oxygen Flow Rate 05/16/25 08:57 05/16/25 08:57 05/16/25 09:10 Temperature Pulse Rate 79 79 Respiratory Rate 18 18 Blood Pressure Pulse Oximetry 95 Oxygen Delivery Nasal Cannula Oxygen Flow Rate 1 Intake/Output Intake/Output: Intake & Output 05/13/25 05/14/25 05/15/25 05/16/25 23:59 23:59 23:59 23:59 Intake Total 2880.8 1360 950 390 Output Total 3550 900 1450 401 Balance -669.2 460 -500 -11 Meds/Results Medications: Active Medications Generic Name Dose Route Start Last Admin Trade Name Freq PRN Reason Stop Dose Admin Acetaminophen 650 mg 05/12/25 05:45 05/15/25 03:11 Acetaminophen 325 Mg Tablet PO 650 mg Q4H PRN Administration Mild Pain (1-3) or Fever Hydrocodone Bitart/Acetaminophen 1 tab 05/12/25 15:42 05/16/25 06:29 Hydrocodone/Acetaminophen (*Crx) 5-325 Mg Tablet PO 1 tab Q4H PRN Administration Moderate Pain (4-6) Amoxicillin/Clavulanate Potassium 1 tablet 05/16/25 09:00 05/16/25 08:48 Amoxicillin/Clavulanate K 875-125 Mg Tab PO 05/16/25 21:01 1 tablet Q12HR ALVIN Administration Atorvastatin Calcium 40 mg 05/13/25 09:00 05/16/25 08:48 Atorvastatin 40 Mg Tablet PO 40 mg DAILY ALVIN Administration Bisacodyl 5 mg 05/12/25 15:42 Bisacodyl 5 Mg Tablet Ec PO DAILY PRN Constipation Carvedilol 6.25 mg 05/15/25 21:00 05/16/25 08:48 Carvedilol 6.25 Mg Tablet PO 6.25 mg Q12HR ALVIN Administration Docusate Sodium 100 mg 05/12/25 17:00 05/16/25 08:48 Docusate Sodium 100 Mg Capsule PO 100 mg BID ALVIN Administration Duloxetine HCl 60 mg 05/13/25 09:00 05/16/25 08:49 Duloxetine Hcl 60 Mg Capsule.Dr PO 60 mg DAILY ALVIN Administration Empagliflozin 10 mg 05/15/25 09:00 05/16/25 08:49 Empagliflozin 10 Mg Tablet PO 10 mg DAILY ALVIN Administration Fluticasone/Umeclidinium/Vilanterol 1 puff 05/13/25 09:00 05/16/25 08:56 Fluticasone/Umeclidin/Vilanter 100-62.5-25 Mcg Ellipta INHALATION 1 puff DAILY ALVIN Administration Furosemide 20 mg 05/15/25 09:00 05/16/25 08:49 Furosemide 20 Mg Tablet PO 20 mg DAILY ALVIN Administration Guaifenesin/Dextromethorphan 1 tab 05/12/25 21:00 05/16/25 08:49 Guaifenesin 600 Mg/Dextromethorphan 30 Mg Sr Tab 12 Hr PO 1 tab Q12HR ALVIN Administration Heparin Sodium (Porcine) 5,000 units 05/12/25 21:00 05/16/25 08:50 Heparin Sodium 5,000 Units/Ml Vial SUB-Q 5,000 units Q12HR ALVIN Administration Ipratropium [place] 0.5 mg 05/15/25 14:00 05/16/25 08:56 Ipratropium Br 0.02% Inh Soln 0.5 Mg/2.5 Ml Vial INHALATION 0.5 mg Q6HRT ALVIN Administration Irbesartan 75 mg 05/13/25 09:00 05/16/25 08:50 Irbesartan 75 Mg Tablet PO 75 mg DAILY ALVIN Administration Levalbuterol HCl 1.25 mg 05/15/25 14:00 05/16/25 08:56 Levalbuterol Neb 1.25 Mg/3 Ml INHALATION 1.25 mg Q6HRT ALVIN Administration Naloxone HCl 0.1 mg 05/12/25 15:42 Naloxone Hcl 0.4 Mg/Ml Vial IV PUSH Q2M PRN Opiate Reversal Ondansetron HCl 4 mg 05/12/25 05:45 05/16/25 09:49 Ondansetron Inj 4 Mg/2 Ml Vial IV PUSH 4 mg Q4H PRN Administration Nausea Pantoprazole Sodium 40 mg 05/13/25 09:00 05/16/25 08:51 Pantoprazole 40 Mg Tablet PO 40 mg QAM ALVIN Administration Prednisone 40 mg 05/15/25 08:40 05/16/25 08:48 Prednisone 20 Mg Tablet PO 40 mg DAILY@0800 ALVIN Administration Vitamin D 125 mcg 05/13/25 09:00 05/16/25 08:48 Cholecalciferol (Vitamin D3) 125 Mcg (5,000 Units) Tablet PO 125 mcg DAILY ALVIN Administration Zolpidem Tartrate 5 mg 05/12/25 21:00 05/15/25 21:01 Zolpidem Tartrate (*Crx) 5 Mg Tablet PO 5 mg HS ALVIN Administration Radiology Results: ITS Impressions Chest X-Ray 05/13/25 06:35 IMPRESSION: 1. No significant change. 2. Pleural effusions with bibasilar atelectasis and/or airspace disease. 3. Interstitial pulmonary edema.. Labs Labs: Laboratory Results - last 24 hr 05/13/25 05/16/25 05/16/25 03:50 04:56 07:10 WBC 9.4 RBC 3.66 L Hgb 10.7 L Hct 34.0 L MCV 92.9 MCH 29.2 MCHC 31.5 L RDW 14.5 Plt Count 303 MPV 8.9 Immature Gran % (Auto) 0.5 Neut % (Auto) 70.1 Lymph % (Auto) 22.1 [place] % (Auto) 7.2 Eos % (Auto) 0.0 Baso % (Auto) 0.1 L Lymph # (Auto) 2.07 [place] # (Auto) 0.7 H Eos # (Auto) 0.0 Baso # (Auto) 0.0 Abs Immat Gran (auto) 0.05 H Absolute Neuts (auto) 6.6 Absolute Nucleated RBC 0.000 Nucleated RBC % 0.0 Sodium 132 L Potassium 3.9 Chloride 96 L Carbon Dioxide 30 Anion Gap 6 BUN 32 H Creatinine 0.97 Estim Creat Clear Calc 38 Estimated GFR 56 L Glucose 100 POC Capillary Glucose 90 Calcium 8.5 Magnesium 1.9 Total Protein (PEP) 8.2 Albumin (PEP) 2.8 L Globulin (PEP) 5.4 H Albumin/Globulin Ratio 0.5 L Kzskc-5-Awhtpwzlk 0.3 Emsjc-7-Gkoqznsdp 0.7 Beta Globulins 0.8 Gamma Globulins 3.5 H PEP Comment Comment Pr Electrophoresis MSpike Not observed
--- NOTE | 2025-05-16 15:17 | PCRCNOTE ---
PT. REFUSED TREATMENT STATING IT MADE HER SICK LAST TIME. DR. ROBERTS AND [employer]. BOTH NOTIFIED. DR. ROBERTS D/C'D THE XOPENEX AND WANTS TO TRY THE PT. ON JUST ATROVENT. PT. AGREED TO TRY THE ATROVENT [place] ; Milena.Juliann. NOTIFIED OF THE CHANGE.
[2025-05-16] MEDS: ZOLPIDEM TARTRATE (*CRX) 5 MG TABLET PO (21:09)
[2025-05-17] VITALS (16 sets, daily range): BP systolic 154–177; BP diastolic 63–87; PULSE 65–75; RESP 16–20; TEMP 36.6–36.9; O2SAT 92–96
[2025-05-17] MEDS: IPRATROPIUM BR 0.02% INH SOLN 0.5 MG/2.5 ML VIAL INHALATION ×3 (03:00→13:59)
--- NOTE | 2025-05-17 06:25 | ECG_ITS ---
Test Date: 2025-05-17 06:43:40 Measurements Intervals [place] Rate: 72 P: 45 CT: 165 QRS: -38 QRSD: 153 T: 100 QT: 408 QTc: 448 Interpretive Statements SINUS RHYTHM LEFT AXIS DEVIATION [QRS AXIS < -30] LEFT BUNDLE BRANCH BLOCK [120+ ms QRS DURATION, 80+ ms Q/S IN V1/V2, 85+ ms R IN I/aVL/V5/V6] ABNORMAL ECG Compared to ECG 05/15/2025 03:54:40 Left-axis deviation now present Electronically Signed On 05-17-2025 08:45:54 VICE PRESIDENT AND PORTFOLIO MANAGER by Oleg Salomon M.D.
--- NOTE | 2025-05-17 06:28 | PC.NURSE ---
0615:PT CALLED RN TO ROOM C/O INCREASED SOB; STATES PLEASE CHECK MY OXYGEN; I FEEL LIKE I'M NOT GETTING ENOUGH OXYGEN PT ON 1LPM PRN O2; SPO2 97 ON 1LPM. BILAT LUNGS CTA ANTERIORLY/LATERALLY. 0620:O2 INCREASED TO 2LPM. CALLED RCT FOR POSSIBLE EARLY DOSE OF SCHEDULED 0800 ATROVENT NEB; NO PRN NEB AVAIL; SPOKE W/ RCT; NEED TO GET ONE TIME ORDER FROM HOSPITALIST. ATTEMPTING TO CALL HOSPITALIST MICAH. 0625: PT STATES HAVING INTERMITTENT CP/ STATES; IT FEELS LIKE WHEN I'VE HAD A HEART ATTACK. ATTEMPT TO CALL MICAH ON CELL [phone]; TO VOICEMAIL. 0635: STAT ECG BEING DONE. ONE TIME ATROVENT NEB BEING DONE.
--- NOTE | 2025-05-17 06:58 | PC.NURSE ---
STAT ECG NSR; LBBB; UNCHANGED FROM 05/14/25. CP AND SOB RESOLVED AFTER NEB. SPOKE W/ JAVEDN. NNO.
[2025-05-17] MEDS: FLUTICASONE/UMECLIDIN/VILANTER 100-62.5-25 MCG ELLIPTA 1 PUFF INHALATION (07:46)
[2025-05-17] MEDS: HYDROcodone/acetaminophen (*CRX) 5-325 MG TABLET 1 TAB PO ×2 (08:02→20:34)
[2025-05-17] MEDS: ONDANSETRON INJ 4 MG/2 ML VIAL IV PUSH (08:04)
[2025-05-17] MEDS: ATORVASTATIN 40 MG TABLET PO (11:20)
[2025-05-17] MEDS: CHOLECALCIFEROL (VITAMIN D3) 125 MCG (5,000 UNITS) TABLET PO (11:22)
[2025-05-17] MEDS: DOCUSATE SODIUM 100 MG CAPSULE PO (11:22)
[2025-05-17] MEDS: FUROSEMIDE 20 MG TABLET PO (11:23)
[2025-05-17] MEDS: guaiFENesin 600 MG/DEXTROMETHORPHAN 30 MG SR TAB 12 HR 1 TAB PO ×2 (11:23→20:34)
[2025-05-17] MEDS: EMPAGLIFLOZIN 10 MG TABLET PO (11:23)
[2025-05-17] MEDS: DULoxetine HCL 60 MG CAPSULE.DR PO (11:23)
[2025-05-17] MEDS: IRBESARTAN 75 MG TABLET PO (11:24)
[2025-05-17] MEDS: PANTOPRAZOLE 40 MG TABLET PO (11:24)
--- NOTE | 2025-05-17 17:04 | P.PNIM_ITS ---
Progress Note: A&P Assessment and Plan (1) HTN (hypertension): Qualifiers: Hypertension type: primary hypertension Qualified Code(s): I10 - Essential (primary) hypertension Code(s): I10 - Essential (primary) hypertension Status: Chronic (2) CKD (chronic kidney disease): Code(s): N18.9 - Chronic kidney disease, unspecified Status: Acute (3) Pneumonia: Qualifiers: Pneumonia type: due to unspecified organism Laterality: bilateral Lung location: unspecified part of lung Qualified Code(s): J18.9 - Pneumonia, unspecified organism Code(s): J18.9 - Pneumonia, unspecified organism Status: Acute (4) Acute hypoxic respiratory failure: Code(s): J96.01 - Acute respiratory failure with hypoxia Status: Acute (5) COPD (chronic obstructive pulmonary disease): Code(s): J44.9 - Chronic obstructive pulmonary disease, unspecified Status: Acute (6) CHF (congestive heart failure): Code(s): I50.9 - Heart failure, unspecified Status: Acute Plan 75-year-old female with history of COPD, prior tobacco use disorder, hypertension, CKD, núñez with skin graft with recurrent pneumonias followed by pulmonology in the outpatient setting. Presents to [facility] ER on 05/12/2025 complaining of several days of shortness of breath and headache. Last had pneumonia several months ago. SpO2 on home monitor 92%. Placed on BiPAP in the emergency room. Patient reports productive cough. Denies fever or chills and does not use home oxygen. Patient transition to nasal cannula the floor. Chest x-ray demonstrating multifocal opacities greater on the right than left. Started on ceftriaxone and azithromycin. Quad viral screen negative. ----- Acute hypoxic respiratory failure with hypoxia and hypercapnia/Bilateral p neumonia/CHF exacerbation -ABG demonstrates pCO2 55 on admission. Patient breathing comfortably. Currently on 1 L nasal cannula. Continue to titrate. -producing thick brown mucus, sputum culture obtained on 05/14/2025, pending. Blood cultures on 05/12/2025, no growth to date. -pending Legionella, mycoplasma, strep pneumococcus. -Continue ceftriaxone and azithromycin started on 05/12/2025. Continue Mucinex DM 12 hour. Continue PEP therapy. -procalcitonin on 05/14/2025 elevated at 6.6, since downtrending. -patient reports history of CHF. Chest x-ray reveals pulmonary edema and BNP elevated on admission, received Lasix. IV Lasix transition to Lasix 20 mg p.o. q.day, patient appears euvolemic now. Had a bump in serum creatinine. Daily weights, intake/output. Heart healthy diet. Hold triamterene -echo on 05/13/25: Summary 1. Complete two-dimensional, color flow and Doppler transthoracic echocardiogram is performed. 2. Left ventricular chamber dimension is mildly enlarged. 3. Left ventricular systolic function is low normal, estimated at 50-55. 4. There is mildly increased left ventricular wall thickness. 5. The left ventricular diastolic function is grade I diastolic dysfunction. 6. Left atrial chamber dimension is mildly enlarged. 7. There is mild mitral valve regurgitation. 8. There is mild tricuspid valve regurgitation. 9. Moderate pulmonary hypertension, estimated pulmonary arterial systolic pressure is 50 mmHg. 10. There is mild pulmonic regurgitation. -start Jardiance 10 mg p.o. q.day on 05/15/2025, adverse effects, risk and benefits discussed. Hypertension -discontinue CLARITY DEVELOPER triamterene hydrochlorothiazide. -blood pressure slightly above goal on 05/15/2025. Increased Coreg 3.125 mg p.o. b.i.d. to 6.25 mg p.o. b.i.d. COPD -did not appear active on admission. On 05/15/2025, or wheezing and coarse breath sounds. Patient complaining shortness of breath. Started prednisone 40 mg p.o. q.day, change DuoNebs to scheduled. Receiving magnesium for hypomagnesemia. Hypomagnesemia -1.4 on 05/15/2025. Received magnesium 2 g rider. Resolved. Hyperproteinemia -SPEP and urine immunofixation pending. CKD -presents with serum creatinine 1.03, stable. Continue to monitor. ----- Patient wishes to be full code Daily weights, intake/output recording. Healthy diet. Saline lock IV. Continue CLARITY DEVELOPER PPI Stable on medical floor with telemetry. Heparin 5000 units subQ q.12h, SCDs 05/16/2025: Evaluated the patient multiple times, multiple discussions with respiratory therapist and the patient's nurse. The patient has been again refusing her breathing treatments. She thinks the breathing treatment causes her nausea, specifically albuterol. We will try just the ipratropium. Monitor nausea, you to try to wean O2. If she is feeling better and still on 1 L tomorrow we will go ahead and check a D-dimer plus/minus a CTA. Aside from that, will be considering discharge with or without home O2. 05/17/2025: Change scheduled ipratropium nebs to p.r.n.. Continue prednisone 40 mg p.o. q.day. ApneaLink tonight on 1 L nasal cannula, home O2 test tomorrow and hopefully home with home health. CTA chest on 05/17 25- for PE, demonstrates bronchopneumonia with pulmonary edema. She will need outpatient follow-up with Cardiology and pulmonology. Patient agreeable, continue Trelegy. Continue PEP therapy. Discussed with patient's family member over the phone. Greater than 55 minute spent on butn-to-kygy time, coordination with nursing team medical personnel, medical decision making. Subjective Date/time seen: 05/17/25 17:04 Interval history: Patient has been more compliant with nebulizers today, we stopped giving albuterol and only ipratropium. Reports nausea with the ipratropium but not as bad with the DuoNeb. None the less, her shortness of breath has resolved. Review of Systems Review of Systems: All systems reviewed & are unremarkable except as noted in HPI and below (Subjective) Exam Const: General: comfortable and no acute distress HENMT: Mouth: Yes moist mucous membranes Eyes: Pupils: Equal, round and reactive pupils present Neck: Neck: supple Resp: Effort & Inspection: normal respiratory effort Other: Wheezing resolved. Diminished breath sounds, greater than right. Cardio: Rate: regular rate Rhythm: regular rhythm Heart sounds: Murmur heart sound present GI: Inspection: non-distended GI Palp: Yes Soft to palpation Auscultation: normal bowel sounds Neuro: Motor exam (neuro): 5/5 motor strength present throughout Extrem: General: no edema Objective Data Vital Signs Vital Signs: Vital Signs - 24 hr 05/16/25 17:40 05/16/25 21:08 05/16/25 21:12 Temperature 97.7 F Pulse Rate 78 70 73 Respiratory Rate 18 Blood Pressure 162/64 H Pulse Oximetry 93 93 Oxygen Delivery Oxygen Flow Rate Fraction of Inspired Oxygen 05/16/25 21:27 05/16/25 21:28 05/16/25 21:33 Temperature Pulse Rate 70 69 Respiratory Rate 18 18 Blood Pressure Pulse Oximetry 94 Oxygen Delivery Nasal Cannula Oxygen Flow Rate 1 Fraction of Inspired Oxygen 05/16/25 23:58 05/17/25 03:02 05/17/25 03:05 Temperature 98.6 F Pulse Rate 74 72 72 Respiratory Rate 16 16 16 Blood Pressure 148/64 H Pulse Oximetry 97 Oxygen Delivery Oxygen Flow Rate Fraction of Inspired Oxygen 05/17/25 04:25 05/17/25 06:53 05/17/25 07:00 Temperature 97.8 F Pulse Rate 72 68 67 Respiratory Rate 20 18 18 Blood Pressure 165/74 H Pulse Oximetry 92 Oxygen Delivery Oxygen Flow Rate Fraction of Inspired Oxygen 05/17/25 07:23 05/17/25 08:00 05/17/25 08:21 Temperature 98.5 F Pulse Rate 74 Respiratory Rate 18 Blood Pressure 163/63 H Pulse Oximetry 95 96 92 Oxygen Delivery Nasal Cannula Nasal Cannula Oxygen Flow Rate 2 1 Fraction of Inspired Oxygen 28 05/17/25 11:20 05/17/25 12:02 05/17/25 14:00 Temperature Pulse Rate 75 75 73 Respiratory Rate 20 Blood Pressure 165/73 H Pulse Oximetry 96 Oxygen Delivery Oxygen Flow Rate Fraction of Inspired Oxygen 05/17/25 14:08 05/17/25 15:54 Temperature Pulse Rate 71 65 Respiratory Rate 20 Blood Pressure 154/75 H Pulse Oximetry 93 Oxygen Delivery Oxygen Flow Rate Fraction of Inspired Oxygen Intake/Output Intake/Output: Intake & Output 05/14/25 05/15/25 05/16/25 05/17/25 23:59 23:59 23:59 23:59 Intake Total 1360 950 810 780 Output Total 900 4281 862 1738 Balance 460 -500 409 -420 Meds/Results Medications: Active Medications Generic Name Dose Route Start Last Admin Trade Name Freq PRN Reason Stop Dose Admin Acetaminophen 650 mg 05/12/25 05:45 05/15/25 03:11 Acetaminophen 325 Mg Tablet PO 650 mg Q4H PRN Administration Mild Pain (1-3) or Fever Hydrocodone Bitart/Acetaminophen 1 tab 05/12/25 15:42 05/17/25 08:02 Hydrocodone/Acetaminophen (*Crx) 5-325 Mg Tablet PO 1 tab Q4H PRN Administration Moderate Pain (4-6) Atorvastatin Calcium 40 mg 05/13/25 09:00 05/17/25 11:20 Atorvastatin 40 Mg Tablet PO 40 mg DAILY ALVIN Administration Bisacodyl 5 mg 05/12/25 15:42 Bisacodyl 5 Mg Tablet Ec PO DAILY PRN Constipation Carvedilol 6.25 mg 05/15/25 21:00 05/17/25 11:20 Carvedilol 6.25 Mg Tablet PO 6.25 mg Q12HR ALVIN Administration Docusate Sodium 100 mg 05/12/25 17:00 05/17/25 11:22 Docusate Sodium 100 Mg Capsule PO 100 mg BID ALVIN Administration Duloxetine HCl 60 mg 05/13/25 09:00 05/17/25 11:23 Duloxetine Hcl 60 Mg Capsule.Dr PO 60 mg DAILY ALVIN Administration Empagliflozin 10 mg 05/15/25 09:00 05/17/25 11:23 Empagliflozin 10 Mg Tablet PO 10 mg DAILY ALVIN Administration Fluticasone/Umeclidinium/Vilanterol 1 puff 05/13/25 09:00 05/17/25 07:46 Fluticasone/Umeclidin/Vilanter 100-62.5-25 Mcg Ellipta INHALATION 1 puff DAILY ALVIN Administration Furosemide 20 mg 05/15/25 09:00 05/17/25 11:23 Furosemide 20 Mg Tablet PO 20 mg DAILY ALVIN Administration Guaifenesin/Dextromethorphan 1 tab 05/12/25 21:00 05/17/25 11:23 Guaifenesin 600 Mg/Dextromethorphan 30 Mg Sr Tab 12 Hr PO 1 tab Q12HR ALVIN Administration Heparin Sodium (Porcine) 5,000 units 05/12/25 21:00 05/17/25 11:23 Heparin Sodium 5,000 Units/Ml Vial SUB-Q 5,000 units Q12HR ALVIN Administration Ipratropium [place] 0.5 mg 05/15/25 14:00 05/17/25 13:59 Ipratropium Br 0.02% Inh Soln 0.5 Mg/2.5 Ml Vial INHALATION 0.5 mg Q6HRT ALVIN Administration Irbesartan 75 mg 05/13/25 09:00 05/17/25 11:24 Irbesartan 75 Mg Tablet PO 75 mg DAILY ALVIN Administration Naloxone HCl 0.1 mg 05/12/25 15:42 Naloxone Hcl 0.4 Mg/Ml Vial IV PUSH Q2M PRN Opiate Reversal Ondansetron HCl 4 mg 05/12/25 05:45 05/17/25 08:04 Ondansetron Inj 4 Mg/2 Ml Vial IV PUSH 4 mg Q4H PRN Administration Nausea Pantoprazole Sodium 40 mg 05/13/25 09:00 05/17/25 11:24 Pantoprazole 40 Mg Tablet PO 40 mg QAM ALVIN Administration Prednisone 40 mg 05/15/25 08:40 05/17/25 08:04 Prednisone 20 Mg Tablet PO 40 mg DAILY@0800 ALVIN Administration Vitamin D 125 mcg 05/13/25 09:00 05/17/25 11:22 Cholecalciferol (Vitamin D3) 125 Mcg (5,000 Units) Tablet PO 125 mcg DAILY ALVIN Administration Zolpidem Tartrate 5 mg 05/12/25 21:00 05/16/25 21:09 Zolpidem Tartrate (*Crx) 5 Mg Tablet PO 5 mg HS ALVIN Administration Radiology Results: ITS Impressions Chest X-Ray 05/13/25 06:35 IMPRESSION: 1. No significant change. 2. Pleural effusions with bibasilar atelectasis and/or airspace disease. 3. Interstitial pulmonary edema.. Chest CTA 05/17/25 14:26 IMPRESSION: Negative for pulmonary embolism. CHF with superimposed probable moderate to severe bronchopneumonia. Follow-up recommended to assess resolution. Labs Labs: Laboratory Results - last 24 hr 05/16/25 17:08 POC Capillary Glucose 136 H
[2025-05-17] MEDS: ZOLPIDEM TARTRATE (*CRX) 5 MG TABLET PO (20:34)
[2025-05-18] VITALS (11 sets, daily range): BP systolic 162–166; BP diastolic 62–64; PULSE 67–80; RESP 18–20; TEMP 36.8; O2SAT 87–95
[2025-05-18] MEDS: FLUTICASONE/UMECLIDIN/VILANTER 100-62.5-25 MCG ELLIPTA 1 PUFF INHALATION (08:29)
[2025-05-18] MEDS: ATORVASTATIN 40 MG TABLET PO (08:42)
[2025-05-18] MEDS: IRBESARTAN 75 MG TABLET PO (08:44)
[2025-05-18] MEDS: CHOLECALCIFEROL (VITAMIN D3) 125 MCG (5,000 UNITS) TABLET PO (08:44)
[2025-05-18] MEDS: guaiFENesin 600 MG/DEXTROMETHORPHAN 30 MG SR TAB 12 HR 1 TAB PO (08:44)
[2025-05-18] MEDS: EMPAGLIFLOZIN 10 MG TABLET PO (08:44)
[2025-05-18] MEDS: DULoxetine HCL 60 MG CAPSULE.DR PO (08:44)
[2025-05-18] MEDS: FUROSEMIDE 20 MG TABLET PO (08:44)
[2025-05-18] MEDS: PANTOPRAZOLE 40 MG TABLET PO (08:45)
--- NOTE | 2025-05-18 09:21 | P.DS_ITS ---
DS: Admitting Diagnosis Discharge Date 05/18/2025 Admitting Diagnosis Respiratory failure DS: Discharge Diagnosis Discharge Diagnosis (1) CHF (congestive heart failure): Code(s): I50.9 - Heart failure, unspecified Status: Acute (2) Pneumonia: Qualifiers: Pneumonia type: due to unspecified organism Laterality: bilateral Lung location: unspecified part of lung Qualified Code(s): J18.9 - Pneumonia, unspecified organism Code(s): J18.9 - Pneumonia, unspecified organism Status: Acute (3) Acute hypoxic respiratory failure: Code(s): J96.01 - Acute respiratory failure with hypoxia Status: Acute (4) COPD (chronic obstructive pulmonary disease): Code(s): J44.9 - Chronic obstructive pulmonary disease, unspecified Status: Acute DS: Summary Hospital Course Hospital Course: 75-year-old female with history of COPD, prior tobacco use disorder, hypertension, CKD, CHF, núñez with skin graft with recurrent pneumonias followed by pulmonology in the outpatient setting. Presents to [facility] ER on 05/12/2025 complaining of several days of shortness of breath and headache. Last had pneumonia several months ago. SpO2 on home monitor 92%. Placed on BiPAP in the emergency room. Patient reports productive cough. Denies fever or chills and does not use home oxygen. Patient transition to nasal cannula the floor. Chest x-ray demonstrating multifocal opacities greater on the right than left. Started on ceftriaxone and azithromycin. Quad viral screen negative. ----- She was treated for multiple acute problems and has improved greatly. She feels 90% better. She is ready to return home with home health. She declines for a thoracentesis to be done at this time. We discussed the importance of following up with her PCP, establishing care with pulmonology and Cardiology shortly. Adverse effects, risk and benefits of medication discussed and the patient was in her standing in agreement with the plan. She knows to return to the ER if she has worsening shortness of breath. Acute hypoxic respiratory failure: Placed on BiPAP in the ER, she has since been stable on 1 L. ApneaLink overnight on 1 L demonstrates saturation less than 88% 4 minutes. She will have a home O2 test in the discharged home on oxygen via nasal cannula. Chest CTA reveals no PE but bilateral pleural effusions left greater than right, bilateral basilar infiltrates. Again, she does not want thoracentesis at this time. She received ceftriaxone and azithromycin for pneumonia. She is receiving heart failure treatment as below. Strep pneumococcus and Legionella antigens negative. Blood culture no growth. Mycoplasma IgM less than 770, quad viral screen negative. COPD exacerbation: Receive DuoNebs, prednisone. Although, will not discharge on prednisone as her coarse breath sounds or more likely due to the pneumonia. She is discharged on her Trelegy. Congestive heart failure. Surface echocardiogram demonstrates grade 1 diastolic dysfunction with normal left ventricular systolic function 50-55%. BNP 6600. Prior to admission she was on Coreg 3.125 mg p.o. b.i.d., increased to 12.5 mg p.o. b.i.d. she is discharged on Lasix 20 mg p.o. q.day, Jardiance 10 mg p.o. q.day has been started. She has not been following anyone for the CHF so a referral has been made to [facility] Cardiology. Patient will be referred to Hematology in the outpatient setting. She did not want further workup of increased gammaglobulin. She was full code during the admission. Time Spent with Patient Time attestation: Total time spent providing and/or coordinating discharge services: Time spent: Greater than 30 minutes Exam Const: General: comfortable and no acute distress HENMT: Mouth: Yes moist mucous membranes Eyes: Pupils: Equal, round and reactive pupils present Neck: Neck: supple Resp: Effort & Inspection: normal respiratory effort Other: Wheezing resolved. Diminished breath sounds, left greater than right. Cardio: Rate: regular rate Rhythm: regular rhythm Heart sounds: Murmur heart sound present GI: Inspection: non-distended GI Palp: Yes Soft to palpation Auscultation: normal bowel sounds Neuro: Motor exam (neuro): 5/5 motor strength present throughout Extrem: General: no edema DS: Data Data Completed and Pending Labs on day of discharge: Preliminary micro results at discharge 05/14/25 09:04 Sputum Culture - Preliminary Sputum 05/12/25 04:07 Blood Culture - Preliminary Blood 05/12/25 04:23 Blood Culture - Preliminary Blood Discharge Plan Discharge Attending physician on discharge: Heather Cummings Discharging Clinician: Heather Cummings Patient Disposition: Home with Home Health Service Activity: november shower Diet: heart healthy Discharge Instructions: Per Care Coordination: [facility] ([phone]) will call to set up initial visit. Discharged on oxygen via nasal cannula Patient Instructions: Antibiotic Form, Atorvastatin (By mouth) Patient Language: Gabonese Stand Alone Forms: General Discharge Information Follow-up/Referrals: Urvashi Castellanos APN-C [Advanced Practice Nurse, Cardiology] Referral Note: Establish new patient for heart failure Julia Montoya APRN [Primary Care Provider, Family Practice] Referral Note: Within 7 days Chi Lee MD [Physician, Pulmonology] Referral Note: Establish for recurrent pneumonias and hypoxic respiratory failure Discharge Medications: New carvedilol [Coreg] 6.25 mg Tablet 12.5 mg PO Q12HR Qty: 60 0RF docusate sodium 100 mg Capsule 100 mg PO BID Qty: 60 0RF Jardiance 10 mg Tablet 10 mg PO DAILY Qty: 30 0RF furosemide 20 mg Tablet 20 mg PO DAILY Qty: 60 0RF Continued irbesartan 75 mg tablet 75 mg PO DAILY duloxetine 60 mg capsule,delayed release(DR/EC) 60 mg PO DAILY Qty: 90 3RF zolpidem [Ambien] 5 mg tablet 5 mg PO HS Qty: 30 5RF cholecalciferol (vitamin D3) 125 mcg (5,000 unit) tablet,disintegrating 125 mcg PO DAILY Trelegy Ellipta 100-62.5-25 mcg blister with device 1 inh inhalation DAILY Qty: 60 0RF atorvastatin [Lipitor] 40 mg tablet 40 mg PO DAILY Qty: 30 0RF esomeprazole magnesium [Nexium] 20 mg capsule,delayed release(DR/EC) 20 mg PO DAILY Qty: 30 0RF Discontinued carvedilol [Coreg] 3.125 mg tablet 3.125 mg PO BID Qty: 180 3RF Rx Instructions: must administer with a meal/food triamterene-hydrochlorothiazid 75-50 mg tablet 1 tablet PO DAILY 30 Days Qty: 30 2RF Date of admission: 05/13/25 10:20 Primary Care Provider: Julia Montoya Admitting Provider: Heather Cummings Attending physician on admission: Heather Cummings Condition: Stable Hospitalist MIPS Heart Failure (Exclusion) Patient has history of Heart Transplant or Left Ventricular Assistive Device?: No IF YES, STOP HERE Heart Failure (Qualifier) Patient has current or prior documentation of LVEF less than or equal to 40%, or mod/servere depressed LVSF?: No IF NO, STOP HERE
--- NOTE | 2025-05-18 11:57 | HOMEO2EVAL ---
Evaluation was performed at [facility] Home Oxygen Evaluation RC: Home Oxygen (O2) Evaluation Start: 05/18/25 08:00 Freq: ONCE Status: Active Protocol: RPE Activity Type Activity Date Activity User E-sign Co-sign Detail Recorded Client Recorded Date Recorded By Document 05/18/25 11:00 [email or web address] [email or web address] 05/18/25 11:57 MIMI Document 05/18/25 11:01 [email or web address] [email or web address] 05/18/25 11:57 MIMI Document 05/18/25 11:03 [email or web address] [email or web address] 05/18/25 11:57 MIMI Document 05/18/25 11:04 [email or web address] [email or web address] 05/18/25 11:57 MIMI Document 05/18/25 11:05 [email or web address] [email or web address] 05/18/25 11:57 MIMI Document 05/18/25 11:10 [email or web address] [email or web address] 05/18/25 11:57 MIMI 05/18/25 05/18/25 05/18/25 11:00 11:01 11:03 Home O2 Evaluation [Oxygen] -Test Phase Resting Resting Exercise -Oxygen Delivery Room Air Nasal Cannula Nasal Cannula -Oxygen Flow Rate (L/min) 1 1 [Pulse Oximetry] -Pulse Oximetry (90-100 %) 87 L 90 87 L [Pulse Rate] -Pulse Rate (60-100 beats/min) 69 78 [Comments] -Home Oxygen Evaluation Comments [Charges] -Evaluation Charges O2 Evaluation by Pulmonary 05/18/25 05/18/25 05/18/25 11:04 11:05 11:10 Home O2 Evaluation [Oxygen] -Test Phase Exercise Exercise Resting -Oxygen Delivery Nasal Cannula Nasal Cannula Nasal Cannula -Oxygen Flow Rate (L/min) 2 3 1 [Pulse Oximetry] -Pulse Oximetry (90-100 %) 88 L 93 93 [Pulse Rate] -Pulse Rate (60-100 beats/min) 78 70 [Comments] -Home Oxygen Evaluation Comments Patient requires 1 liter home O2 at rest and 3 liters with exertion [Charges] -Evaluation Charges
== END 2025-05-18 13:42 | disposition home health service (06) | DRG 193 ==
LOC: ANHED 04:20 → ANHIMU 06:47 → ANH2MED 05-13 22:51
PROVIDERS: Student in an Organized Health Care Education/Training Program; Admitting Provider General Practice; Emergency Provider Student in an Organized Health Care Education/Training Program; PCP Nurse Practitioner Family; Visit Provider General Practice
DX: J18.9 Pneumonia, unspecified organism (principal); I50.33 Acute on chronic diastolic (congestive) heart failure; J96.01 Acute respiratory failure with hypoxia; J96.02 Acute respiratory failure with hypercapnia; J44.1 Chronic obstructive pulmonary disease with (acute) exacerbation; J44.0 Chronic obstructive pulmonary disease with (acute) lower respiratory infection; I13.0 Hypertensive heart and chronic kidney disease with heart failure and stage 1 through stage 4 chronic kidney disease, or unspecified chronic kidney disease; N18.9 Chronic kidney disease, unspecified; E88.09 Other disorders of plasma-protein metabolism, not elsewhere classified; E78.5 Hyperlipidemia, unspecified; K21.9 Gastro-esophageal reflux disease without esophagitis; Z20.822 Contact with and (suspected) exposure to COVID-19; Z87.891 Personal history of nicotine dependence
CPT/HCPCS: 36415; 71045; 71275; 80048; 80053; 82803; 82948; 83605; 83735; 83880; 84145; 84155; 84165; 85025; 86335; 86738; 87040; 87070; 87205; 87449; 87637; 87899; 93005; 93306; 94002; 94003; 94618; 94640; 94667; 94668; 96365; 96366; 96367; 96375; 97110; 97116; 97161; 97166; 97530; 97535; 99285; A9270; G0378; J0456; J0696; J1100; J1644; J1938; J2405; J3475; J7050; J7120; J7512; Q9967